=== PATIENT | female | born 1945 | race Caucasian/White ===

== ENCOUNTER → 2018-05-14 | Outpatient (CLI) | payer MEDICARE ==
[~2018-05-14] MED LIST: BUDE10.2 INH; CITA-157 PO; HYDR-2966 PO; NYST100040 PO; OMEP-218 PO; OXYB5TAB86 PO
--- NOTE | 2018-05-14 10:00 | RADIOLOGY IMAGING REPORT ---
[place] [facility] [place] Margarita Smith : 1945 MR: [id number] V: [id number] EXAM DATE: ORDERING PHYSICIAN: ANEL ROSALES TECHNOLOGIST: Location: [facility] - [place] Patient: Margarita Smith : 1945 Visit/Account:[id number] Date of Sevice: 05/14/2018 2 VIEWS CHEST INDICATION: COPD. Productive cough. COMPARISON: 04/30/2016 FINDINGS: There is a dense opacity/consolidation corresponding to the right upper lung. Peripheral aeration is seen within the apical region. There is some volume loss seen within the right hemithorax as a resu lt. At this point, concern is for a right upper lobe pneumonia. Postobstructive pneumonia in the se tting of a central obstructing mass must be considered in the differential given this appearance. Le ft lung is clear and is well aerated. There is no pleural effusion or pneumothorax identified. Hear t size is normal. There is scattered atherosclerosis within the thoracic aorta. Degenerative change s involve the thoracic spine. Prior low thoracic vertebro plasty has been performed. IMPRESSION: 1. Dense opacity/consolidation corresponding to the right upper lobe. Concern is for right upper lob e collapse with a superimposed pneumonia. Possibility of an obstructing central neoplasm accounting for this finding must be considered in the differential. Close radiographic follow-up after treatmen t recommended. Alternatively, computed tomography could be done with IV contrast for further assessm ent in the short term. 2. Scattered atherosclerosis of the thoracic aorta. Report Dictated By: Ariel Schneider at 05/14/2018 9:50 AM Report E-Signed By: Ariel Schneider at 05/14/2018 9:55 AM WSN:[id number]
== END ==
LOC: RAD 09:20
PROVIDERS: ATTEND Family Medicine
DX: I70.0 Atherosclerosis of aorta (principal); R91.8 Other nonspecific abnormal finding of lung field
CPT/HCPCS: 71046

== ENCOUNTER → 2018-05-15 | Outpatient (CLI) | payer MEDICARE ==
[~2018-05-15] MED LIST changes: +IOPAMIDOL 76% 75 ML INFUS BTL 75 ML ONE
--- NOTE | 2018-05-15 17:07 | RADIOLOGY IMAGING REPORT ---
FACILITY: [facility] [place] PATIENT NAME: Margarita Smith : 1945 MR: [id number] V: [id number] EXAM DATE: ORDERING PHYSICIAN: ANEL ROSALES TECHNOLOGIST: Location: [facility] - [place] Patient: Margarita Smith : 1945 Visit/Account:[id number] Date of Sevice: 05/15/2018 CHEST W CONTRAST COMPARISON: PA and lateral chest x-ray May 14, 2018 HISTORY: Cough, shortness of breath, previous smoker with COPD and lung mass on 05/14/2018 chest x-ra y.. TECHNIQUE: Axial CT of the chest with intravenous contrast. Coronal and sagittal reformats. One of the following dose optimization techniques was utilized in the performance of this exam: auto mated exposure control; adjustment of the mA and/or kV according to patient size; or use of iterative reconstruction technique. Specific details can be referenced in the facility's radiology CT exam op erational policy. CONTRAST: 75 mL of IV Isovue-370. CT CHEST FINDINGS: CARDIAC: Unremarkable. MEDIASTINUM/JONATHAN: Unremarkable. No mass or significantly enlarged lymph nodes. VASCULATURE: Moderate atherosclerotic aortic and great vessel origin calcifications. CHEST WALL: 2.1 x 3.5 cm simple lipoma in the right supraspinatus muscle. No axillary adenopathy or solid chest wall mass. LUNGS/PLEURA: Moderate centrilobular emphysema. Large right upper lobe mass measuring about 6.8 x 9. 2 by approximately 8.8 cm (series 2 image 27, coronal image 63). This should be considered pulmonary neoplasm until proven otherwise. There is a large component which abuts the SVC and right paratrachea l fat and the mass is inseparable from the right. Exact measurements are somewhat limited because the margins are obscured by postobstructive right upper lobe atelectasis. There are right upper lobe bro nchi leading into the mass which are abruptly cut off which would make this amenable to bronchoscopic biopsy if desired. Spiculated left upper lobe nodules may represent neoplasm or irregular foci of pneumonia. These inclu de a dominant lesion measuring 1.3 x 2.6 cm series 4 image 117, another more medially measuring 1.5 x 1.7 cm on image 113, and another currently measuring 6 x 9 mm on image 132. BONES: Mild thoracic spine degenerative changes. No lytic or blastic bone lesions. Chronic T11 compr ession fracture with vertebroplasty cement, some of which is paravertebral. LIMITED ABDOMEN: 6 x 9 mm nodule in the medial limb of the left adrenal gland series 2 image 89. Met astasis is not excluded. No well-defined lesions in the visualized liver. Benign cyst in the left kid shaquille incompletely imaged. Cholecystectomy clips and vascular calcifications. OTHER: Negative. IMPRESSION: 1. Approximately 9.2 cm right upper lobe mass which should be considered primary pulmonary neoplasm until proven otherwise. This should be amenable to bronchoscopic biopsy. 2. Spiculated left upper lobe nodules could represent metastases. Irregular foci of bronchopneumonia are possible but unlikely. 3. 9 mm left adrenal gland nodule, metastasis is not excluded. 4. Moderate centrilobular emphysema. 5. Benign intramuscular lipoma, right supraspinatus. Results were called to Dr. ANEL ROSALES on 05/15/2018 5:04 PM. Report Dictated By: Sergei Leary at 05/15/2018 4:41 PM Report E-Signed By: Sergei Leary at 05/15/2018 5:04 PM WSN:[id number]
== END ==
LOC: CT 14:35
PROVIDERS: ATTEND Family Medicine
DX: J43.2 Centrilobular emphysema (principal); R91.8 Other nonspecific abnormal finding of lung field; E27.9 Disorder of adrenal gland, unspecified; D17.9 Benign lipomatous neoplasm, unspecified
CPT/HCPCS: 71260; Q9967

== ENCOUNTER → 2018-06-01 | Outpatient (CLI) | payer MEDICARE ==
[~2018-06-01] MED LIST changes: +BENZ100C4 PO; +DOCU-416 PO; +FLUT1DIS28 IH; +GUAI-242 PO; +GUAI237L21; -IOPAMIDOL 76% 75 ML INFUS BTL 75 ML ONE; +OXYC-854 PO
--- NOTE | 2018-06-01 09:58 | EKG ---
FACILITY: [facility] [place] PATIENT NAME: JOSH CONNOLLY : [id number] MR: [id number] V: [id number] EXAM DATE: ORDERING PHYSICIAN: INEZ CORNELL TECHNOLOGIST: REKHA Perry Reason : RESP EKG Blood Pressure : / mmHG Vent. Rate : 054 BPM Atrial Rate : 054 BPM P-R Int : 140 ms QRS Dur : 078 ms QT Int : 464 ms P-R-T Axes : 059 022 029 degrees QTc Int : 440 ms Sinus bradycardia Otherwise normal ECG No previous ECGs available Confirmed by POONAM PINA ([id number]) on 06/01/2018 8:15:32 PM Referred By: ANETA Confirmed By:POONAM PINA
== END ==
LOC: RESP 09:41
PROVIDERS: ATTEND Surgery
DX: Z01.810 Encounter for preprocedural cardiovascular examination (principal); R00.1 Bradycardia, unspecified
CPT/HCPCS: 93005

== ENCOUNTER → 2018-06-05 | Outpatient (CLI) | payer MEDICARE ==
[~2018-06-05] MED LIST changes: +GADOBENATE 529MG/1ML 15ML VIAL IVP ONE
--- NOTE | 2018-06-05 12:59 | RADIOLOGY IMAGING REPORT ---
FACILITY: [facility] [place] PATIENT NAME: Margarita Smith : 1945 MR: [id number] V: [id number] EXAM DATE: ORDERING PHYSICIAN: MIK HSIEH TECHNOLOGIST: Location: [facility] - [place] Patient: Margarita Smith : 1945 Visit/Account:[id number] Date of Sevice: 06/05/2018 Examination: MR brain without and with contrast History: Lung cancer, staging Comparison: PET/CT May 28, 2018 Technique: Multiplane MR imaging was performed through the brain without and with contrast. 13 cc IV multihance was administered. Findings: Diffusion: None Ventricles: Normal Midline shift: None Extraxial fluid: None Midline craniocervical structures: Normal Parenchyma: Multiple varying sized white matter high signal patches in keeping with moderate chronic small vessel ischemic change. Enhancement: No pathologic enhancement Vascular flow voids: Normal Orbits and paranasal sinuses: Left cataract postsurgical change. Impression: 1. No metastatic disease identified. 2. Moderate chronic small vessel ischemic change. 3. Otherwise normal brain MR without and with contrast. Report Dictated By: Sean Ulrich MD at 06/05/2018 12:52 PM Report E-Signed By: Sean Ulrich MD at 06/05/2018 12:56 PM WSN:[id number]
== END ==
LOC: MRI 10:13
PROVIDERS: ATTEND Internal Medicine Medical Oncology
DX: C34.90 Malignant neoplasm of unspecified part of unspecified bronchus or lung (principal)
CPT/HCPCS: 70553; A9577

== ENCOUNTER 2018-06-07 00:52 | Day surgery (SDC) | payer MEDICARE ==
[~2018-06-07] VITALS: Ht 152.4 cm; Wt 60.3 kg
[~2018-06-07 00:52] MED LIST changes: -DOCU-416 PO; -GADOBENATE 529MG/1ML 15ML VIAL IVP ONE; -OXYC-854 PO
[2018-06-07 06:00] VITALS: BP 140/66
[2018-06-07] MEDS ORDERED: PROPOFOL EMUL(*) 10MG/ML 20 ML 20 ML ONE (06:23)
[2018-06-07] MEDS ORDERED: DEXAMETHASONE SOD 4 MG/ML VIAL ONE (06:23)
[2018-06-07] MEDS ORDERED: fentaNYL CITR 100 MCG/2 ML AMP ONE ×2 (06:23→09:26)
[2018-06-07] MEDS ORDERED: ONDANSETRON 4 MG/2 ML VIAL ONE (06:23)
[2018-06-07] MEDS ORDERED: HEPARIN SOD LCK FLSH 100 UN/ML ONE ×2 (07:12→07:13)
[2018-06-07] MEDS ORDERED: ROPIVACAINE 0.5% 20 ML VIAL ONE (07:13)
[2018-06-07] MEDS ORDERED: NS(*) 0.9% 10 ML VIAL 20 ML ONE (07:13)
[2018-06-07] MEDS ORDERED: ROCURONIUM BROM 10 MG/ML 5 ML ONE (08:00)
[2018-06-07] MEDS ORDERED: OXYC-854 PO (09:01)
[2018-06-07] MEDS ORDERED: DOCU-416 PO (09:01)
--- NOTE | 2018-06-07 09:06 | Short(Outpt) Discharge Summary ---
Discharge Summary Reason for Hosp/Final Diag: (1) Neoplasm of lung, malignant Status: Chronic Hospital Course & Plan: Attempted unsuccessful left IJ and SCV power port placement and successful right power port placed without problems. Departure Discharge to: Home, Self Care Discharge Instructions Home Meds Active Scripts Docusate Sodium (COLACE) 100 Mg Capsule, 1 CAP PO BID, #30 CAP 0 Refills TAKE WITH A FULL GLASS OF WATER Prov:INEZ CORNELL MD 06/07/18 Oxycodone Hcl/Acet 5/325 Mg (ENDOCET 5-325 TABLET) 1 Each Tablet, 1 TAB PO Q4H Y for PAIN, #20 TAB 0 Refills Prov:INEZ CORNELL MD 06/07/18 Reported Medications Guaifenesin/Codeine Phosphate (CHERATUSSIN AC SYRUP) 118 Ml Liquid, 5 ML PO Q6H Y for COUGH 06/05/18 Benzonatate 100 Mg Cap (TESSALON PERLE 100 MG CAP) 100 Mg Capsule, 100 MG PO Q8H Y for COUGH, CAP 06/05/18 Fluticasone/Salmeterol (ADVAIR 250-50 DISKUS) 1 Each Disk.w.dev, 1 EACH IH BID 05/30/18 Citalopram Hydrobromide (CELEXA) 40 Mg Tablet, 40 MG PO QDAY, #5 TAB 09/08/15 Omeprazole Magnesium (PRILOSEC OTC) 20 Mg Tablet.dr, 1 TAB PO BID, TAB 09/08/15 Hydrochlorothiazide (HYDROCHLOROTHIAZIDE) 25 Mg Tablet, 1 TAB PO QDAY, TAB 09/08/15 Oxybutynin Chloride (OXYBUTYNIN CHLORIDE) 5 Mg Tablet, 5 MG PO QDAY, TAB 09/08/15 Discontinued Reported Medications Guaifenesin/Dextromethorphan (Robitussin Cough-Chest Dm Liq) 100 Mg-5 Mg/5 Ml Liquid 05/30/18 Diet: Regular Activity: As Tolerated Special Instructions: You may remove the white surgical dressings on your left neck and chest on 06/09/18, then you can shower. After showering, leave the incisions open to air but leave the steristrips in place on all incisions until they fall off on their own. Do not immerse the incisions for 2 weeks. There is a suture in your right neck that "should" fall out on its own over the next 2 weeks. If it doesn't, you may gently tug on the knot but if it doesn't fall out with gentle tugging then you can either call my office at [phone] and we can remove it in my office or the staff at the cancer center can remove it there during your chemotherapy. Problem Qualifiers (1) Neoplasm of lung, malignant: Laterality: right Lung location: unspecified part of lung Qualified Codes: C34.91 - Malignant neoplasm of unspecified part of right bronchus or lung INEZ CORNELL MD Jun 07, 2018 09:05
--- NOTE | 2018-06-07 09:18 | Post Operative Progress Note ---
Post Operative Progress Note Date: Jun 07, 2018 Time: 09:05 Surgeon: Aristeo Dictation number: [id number] Anesthesia: GETA by Dr. Zhang Pre-Op Diagnosis: Right lung cancer Post-Op Diagnosis: YFN Findings: Unable to draw blood from left IJ, unable to advance wire via left SCV beyond bifurcation of left IJ, wire went up into left IJ. Right IJ adilia blood and threaded wire without problems. Procedure(s): Attempted, unsuccessful, left IJ and left SCV power port placement Successful right IJ power port placement Specimen Removed:(May be N/A): None Complications: None Fluids: See anesthesia record Estimated Blood Loss: Minimal INEZ CORNELL MD Jun 07, 2018 09:18
--- NOTE | 2018-06-07 09:20 | RADIOLOGY IMAGING REPORT ---
[place] [facility] [place]: Margarita Smith : 1945 MR: [id number] V: [id number] EXAM DATE: ORDERING PHYSICIAN: INEZ CORNELL TECHNOLOGIST: Location: [facility] Patient: Margarita Smith : 1945 Visit/Account:[id number] Date of Sevice: 06/07/2018 Exam type: C-ARM FLUORO PORT/CATH History: PORT PLACEMENT Comparison: Two-view chest May 14, 2018. Findings: There is some placement of an implanted right-sided IJ port with the distal tip projecting over the e xpected locations. Vena cava. Large right upper lobe mass is again seen similar to the prior study. The continuous total fluoroscopy dose was 0.51972 mGray per meter square. The fluoroscopy time was 87.4 seconds. IMPRESSION: 1. As above Report Dictated By: Susanna Decker MD at 06/07/2018 9:14 AM Report E-Signed By: Susanna Decker MD at 06/07/2018 9:15 AM WSN:[id number]
--- NOTE | 2018-06-07 09:43 | RADIOLOGY IMAGING REPORT ---
FACILITY: [facility] - [place] PATIENT NAME: Margarita Smith : 1945 MR: [id number] V: [id number] EXAM DATE: ORDERING PHYSICIAN: INEZ CORNELL TECHNOLOGIST: Location: [facility] - [place] Patient: Margarita Smith : 1945 Visit/Account:[id number] Date of Sevice: 06/07/2018 CHEST SINGLE AP Additional pertinent History: Port placement COMPARISON STUDIES: 05/14/2018 FINDINGS: Support lines and catheters: Oxygen tubing EKG wire leads and right chest Geyrgu-w-Uixy. There is go od positioning of the distal tip at the cavoatrial junction Lungs and Pleura: There is a complete right upper lobe parenchymal mass the extending to the posteri or right seventh rib. Additional spiculated 1.5 cm mass in the left midlung field. Atelectasis at t he left lung base. Heart and vasculature: Negative. Cristiana and Mediastinum: Negative. Bones and Chest wall: Negative. Upper Abdomen: Negative. IMPRESSION: 1. No interval placement of a right chest Xmelpn-w-Qhck catheter. Reidentified is a right apical ma ss and the left mid lung parenchymal lesion. Report Dictated By: Joe Saunders MD at 06/07/2018 9:32 AM Report E-Signed By: Joe Saunders MD at 06/07/2018 9:39 AM WSN:[id number]
[2018-06-07 09:47] VITALS: BP 111/81
--- NOTE | 2018-06-07 10:07 | OPERATIVE REPORT 1 ---
EVENT DATE: June 07, 2018 SURGEON: Derek Alberts M.D. ANESTHESIOLOGIST: Jose Alfredo Zhang M.D. ANESTHESIA: General endotracheal. PREOPERATIVE DIAGNOSIS Right upper lobe lung cancer. POSTOPERATIVE DIAGNOSIS Right upper lobe lung cancer. PROCEDURE PERFORMED 1. Attempted but unsuccessful left internal jugular (IJ) and left subclavian PowerPort placement. 2. Successful right internal jugular (IJ) PowerPort placement. COMPLICATIONS None. CONDITION Stable. ESTIMATED BLOOD LOSS Minimal. FINDINGS I was unable to draw blood from the left IJ even though I could clearly see the needle in the IJ based on ultrasound. I was able to thread the wire without any seeming resistance but then when I placed the port I could not draw any blood through the port either. I pulled that port out and then went into the left subclavian vein and was able to get a good brisk venous blood return but then I could not thread the wire into the superior vena cava; it wanted to go up into the IJ so I aborted on the left and then was successful in placing one on the right. I could draw blood with no problems and thread the wire without any problems on the right IJ. INDICATIONS This is a 72-year-old female who was referred to me by the Cancer Center with a new diagnosis of right upper lobe lung cancer and they are requesting a port placement to facilitate chemotherapy. DESCRIPTION OF PROCEDURE The patient was brought to the operating room and placed supine on the operating table. General endotracheal anesthesia was administered and her left shoulder, neck and chest were prepped and draped in sterile fashion. Time-out was completed. With her in Trendelenburg, I used the ultrasound, identified the left internal jugular vein and it appeared widely patent but there appeared to be echogenic substance inside the vein. It was compressible. I was able to direct the needle into the vein and could follow this on the ultrasound but could not get any blood to flash back into the syringe. Because it looked like a good position in the vein, I tried to threat the wire and it seemed to thread without any problems and I confirmed position with the C-arm fluoroscope into the SVC and so then went ahead and placed the port on the left side but then after getting the port in what looked to be a good position I was then able to get any blood return at all through the port and catheter. I then just removed the port and catheter from the this side and then attempted a left subclavian vein placement and was able to get good flashback of venous blood on the left side but then I could not get the wire to threat into the SVC; it wanted to go up into the left IJ. I attempted all attempts on the left side and when ahead and closed the incision in the left infraclavicular skin with interrupted 3-0 Vicryl deep dermal sutures and 4-0 Monocryl running subcuticular sutures. Her skin was clean, dried and steri-strips applied followed by sterile surgical dressings. We took all the drapes down and then prepped the right shoulder, chest and neck and I re-gowned and gloved and with Trendelenburg identified the right internal jugular vein and accessed this in one attempt with no problems and good blood return. I threaded the wire with no problems, used C-arm fluoroscope to position it in the SVC and it went very nicely. I made an incision in the right infraclavicular skin and dissected through the dermis subcutaneous fat and created a pocket in this area and made sure it was hemostatic. I then dragged the catheter with the tunneler back up into the neck into the stab incision and then threaded the dilator and sheath over the wire, removed the wire and dilator and threaded the catheter through the sheath and removed the sheath. I then used the C-arm fluoroscope to position the tip of the catheter and the SVC just above the right atrium. I cut it to length, placed a port on the catheter and locked into place with locking cup, sewed it to the underlying fascia with 3-0 Nylon at the corners and then aspirated blood with no problems and flushed it with 10 mL of normal saline and then 5 mL of 100 units/mL of heparinized saline. It flushed with no problems. I then took some more C-arm images to confirm good placement and then closed the infraclavicular incision with interrupted 3-0 Vicryl deep dermal sutures and 4- 0 Monocryl running subcuticular sutures. I placed a single 3-0 chromic in the stab incision in the neck. I cleaned and dried the skin and placed steri- strips over the incisions. She was then awakened and extubated in the operating room and transported to the recovery room in stable condition. She tolerated the procedure without any apparent problems. A chest x-ray in the recovery room was reviewed with the radiologist and the port and catheter were in good position. There was no evidence of pneumothorax or other complications. [place]
[2018-06-07 10:18] VITALS: BP 114/53
[2018-06-07 10:19] VITALS: BP 112/54
[2018-06-07] MEDS ORDERED: MIDAZOLAM 2 MG/2 ML VIAL IVP PRN (13:00)
[2018-06-07] MEDS ORDERED: NORMOSOL R SOLN(*) 1000 ML BAG 1,000 ML IV PRN (13:00)
[2018-06-07] MEDS ORDERED: LIDOCAINE/SOD BICARB 8.4% SYR ID ONE (13:00)
[2018-06-07] MEDS ORDERED: VANCOMYCIN 1 GM ADDVIAL 1 GM in NS(*) 0.9% 250 ML ADDVAN BAG 250 ML IVPB ONE (13:00)
== END 2018-06-07 19:48 | disposition home or self-care (01) ==
LOC: OR 00:52
PROVIDERS: ATTEND Surgery
DX: C34.11 Malignant neoplasm of upper lobe, right bronchus or lung (principal)
CPT/HCPCS: 36561; 71045; 77001; A9270; J1100; J1642; J2405; J2704; J2795; J3010; J3370; J7050

== ENCOUNTER 2018-07-27 11:15 | Outpatient (RCR) | payer MEDICARE ==
--- NOTE | 2018-06-14 14:27 | PT INITIAL EVALUATION ---
MEDICAL DIAGNOSIS: Non-Squamous Cell Lung Cancer (NSCLC) TREATMENT DIAGNOSIS: Non-Squamous Cell Lung Cancer (NSCLC) DATE OF ONSET: 06/14/18 SUBJECTIVE: Margarita Dolan" is a 72 year old female presenting for oncology rehabilitation education following recent diagnosis of non-squamous cell lung cancer (NSCLC). Pt is to start chemotherapy intervention consisting of Carboplatin every 21 days. Pt currently lives with her daughter and is on 3 L of oxygen throughout the day. Pt has a history of smoking with COPD. Pt currently reports no physical impairments and is fairly active doing chores throughout the day. REHAB PROBLEM LIST: Decreased Endurance Decreased Function Decreased ADL's Decreased Mobility PREVIOUS MEDICAL HISTORY: See EMR OBJECTIVE: Posture: Posture significant for rounded shoulders, increased thoracic kyphosis with forward head. ROM: Shoulder ROM: Flexion/Abd: B with minimal restrictions but no pain at end range, ER: full B, IR: L T7, R T8 Strength: Shoulder MMT: All 5/5 excluding R ER at 4+/5. Sensation: Pt reports no neuropathy at this time or change in sensation. Mobility: ECOG performance Status: grade 2, mobility was recently decreased secondary to fatigue Other Objective Findings: Functional Assessment of Cancer Therapy: General (FACT -G): PWB: , SWB: , EWB: , FWB: , total: 97/108 ASSESSMENT: Rosa Elena shows good functional mobility at this time with diagnosis of NSCLC with mild deficits in daily function secondary to fatigue. Physical therapy is indicated to maintain function with ADL's as well as improve the above listed deficits for functional mobility with ongoing oncological intervention. Short Term Goals In 3 MO pt will maintain FACT-G score of 85 or greater for maintenance of function with ADL's with ongoing oncological intervention. In 3 MO pt will maintain shoulder ROM with minimal restrictions and no pain for improved function with ADL's. In 6 MO pt will maintain FACT-G score of 80 or greater for maintenance of function with ADL's with ongoing oncological intervention. Patient's Goals Maintain function with ADL's with ongoing treatment for NSCLC PLAN: Patient to be seen for Manual Therapy/STM/MET Strengthening/condition Ice/Heat Range of Motion Spinal Stabilization Stretching Neuromuscular Re-ed Closed Chain Program Electrical Stim Posture/Body mechanics Gait Trg/Balance Trg Home Exercise Program Mech./Manual Traction Therapeutic Activities Pelvic Floor 1x/MO for 6 MO If you have any questions, comments, or concerns about this report or plan, please contact me at . Thank you, Nancy Raymond, PT, DPT, CLT DUTCH
[~2018-07-27 11:15] MED LIST changes: +DOCU-416 PO; +OXYC-854 PO; +POTA20PA25 PO; +TRIA15CR40 TP
--- NOTE | 2018-07-27 15:45 | PT PLAN OF CARE ---
Physician: Sylvie Beasley MD Patient is being seen: 1x/3Weeks Therapist: Nancy Raymond, PT, DPT, CLT Medical Diagnosis: Non-Squamous Cell Lung Cancer (NSCLC) Treatment Diagnosis: Non-Squamous Cell Lung Cancer (NSCLC) Date of Onset: 06/14/18 Date of Initial Evaluation: 06/14/18 Date patient was last seen: 07/27/18 Number of treatments: 2 Number of cancellations/No shows: 0 INTERVENTIONS: Manual Therapy/STM/MET Strengthening/condition Ice/Heat Range of Motion Spinal Stabilization Stretching Neuromuscular Re-ed Closed Chain Program Electrical Stim Posture/Body mechanics Gait Trg/Balance Trg Home Exercise Program Mech./Manual Traction Therapeutic Activities Pelvic Floor GOALS: In 3 MO pt will maintain FACT-G score of 85 or greater for maintenance of function with ADL's with ongoing oncological intervention. In 3 MO pt will maintain shoulder ROM with minimal restrictions and no pain for improved function with ADL's. In 6 MO pt will maintain FACT-G score of 80 or greater for maintenance of function with ADL's with ongoing oncological intervention. PATIENT'S GOAL: Maintain function with ADL's with ongoing treatment for NSCLC Status of Patient's Goals: In Progress Patient Compliance: Good Prognosis: Fair Reasons for continuing therapy: Rosa Elena shows good progress with maintenance of physical condition with ongoing treatment. Secondary to postural changes pt has developed R shoulder impingement with both subscapularis, and supraspinatus rotator cuff muscles affected. Pt started on strengthening exercises as well as postural correction exercises that will likely assist with increasing lung capacity as well. Further PT to continue to evaluate shoulder function and progress exercises as well as maintain function with ADL's. OBJECTIVE: Posture: Posture significant for rounded shoulders, increased thoracic kyphosis with forward head. ROM: Shoulder ROM: Flexion/Abd: B with minimal restrictions but no pain at end range, ER: full B, IR: L T7, R T8 Strength: Shoulder MMT: All 5/5 excluding R ER at 4/5 with pain, R IR 4/5 with pain. Sensation: Pt reports no neuropathy at this time or change in sensation. Mobility: ECOG performance Status: grade 2, mobility was recently decreased secondary to fatigue Other Objective Findings: Functional Assessment of Cancer Therapy: General (FACT-G): PWB: , SWB: , EWB: , FWB: , total: 97/108 If you have any questions, comments, or concerns about this report or plan, please contact me at . Thank you, Nanyc Raymond, PT, DPT, CLT MTDD
== END 2018-07-27 18:00 | disposition home or self-care (01) ==
LOC: PT 11:15
PROVIDERS: ATTEND Internal Medicine Hematology
DX: C34.90 Malignant neoplasm of unspecified part of unspecified bronchus or lung (principal); Z99.81 Dependence on supplemental oxygen; Z87.891 Personal history of nicotine dependence
CPT/HCPCS: 97161

== ENCOUNTER 2018-08-24 12:43 | Outpatient (RCR) | payer MEDICARE ==
[2018-05-30 14:48] VITALS: BP 142/75
--- NOTE | 2018-05-31 04:18 | ONCOLOGY CONSULTATION ---
EVENT DATE: May 30, 2018 REFERRING PROVIDER Julian Mercedes MD, local area network systems adminstrator, [facility] REASON FOR CONSULTATION Newly diagnosed lung cancer. CHIEF COMPLAINT Cough, shortness of breath. HISTORY OF PRESENT ILLNESS Ms. Smith is a delightful 72-year-old female who presents today at the request of Dr. Mercedes for evaluation and treatment plan for recently diagnosed lung cancer. To review, the patient does have a history of moderate COPD and chronic hypoxemia requiring supplemental oxygen. She had been in her usual state of health over the past year until recently when she had developed a cough that was increasing in severity. She underwent a CT scan of the chest that showed a right upper lobe mass. She subsequently underwent bronchoscopy and EBUS on May 18. Pathology from the bronchoscopy has revealed a poorly differentiated non-small cell carcinoma within a subcarinal lymph node and right paratracheal lymph node, as well as endobronchial biopsy of the right upper lobe mass. She subsequently went for a CT PET scan. This was performed on May 28. This has revealed a dense hypermetabolic right upper lobe pulmonary mass confluent with the superior right hilum and extending toward the subcarinal space, but without discrete/separate adenopathy. There were several irregular left upper lobe pulmonary nodules, the largest hypermetabolic, but all three consistent with metastatic disease. There was a non-hypermetabolic left adrenal nodule, most likely adenoma. The patient has not yet undergone brain imaging to complete her staging. She is here with family today. The patient reports that in general, she still continues to feel like she is basically at her baseline despite having a worsened cough. She reports no significant pain. Her appetite is pretty good, and her weight has been stable. She does feel short of breath with exertion, but she is independent for basically all activities of daily living. She reports no hemoptysis. She has had no abdominal pain or recent changes in bowel or bladder habits. She denies skin rash. She has had no severe headache or focal neurologic symptoms. REVIEW OF SYSTEMS Review of systems is otherwise negative, and all symptoms were reviewed. PAST MEDICAL HISTORY 1. COPD. 2. History of smoking, patient quit in 2011. 3. Gastroesophageal reflux disease. 4. Macular degeneration. CURRENT MEDICATIONS 1. Citalopram. 2. Oxybutynin. 3. Hydrochlorothiazide. 4. Omeprazole. ALLERGIES PENICILLIN. SOCIAL HISTORY The patient is currently a nonsmoker, but does have a history of heavy smoking. She quit in 2011. There is no history of alcohol abuse or illicit drug use. FAMILY HISTORY There is a history of heart disease and hypertension as well as Alzheimer's disease. There are no known cancers in the family. PHYSICAL EXAMINATION VITAL SIGNS: Temperature 97.6, blood pressure 142/75, heart rate is 68, respirations 16, oxygen saturation is 95% on 3L. Weight is 61.3 kg. GENERAL: Patient is alert and oriented x three in no apparent distress, sitting in the exam room chair. She is interactive and very pleasant. HEENT: Anicteric sclerae. NEUROLOGIC: Grossly nonfocal and her gait is normal. EXTREMITIES: Some slight edema of the bilateral lower extremities, but no cyanosis. SKIN: No concerning rash or lesion. There is no erythema or tenderness. LABORATORY DATA Laboratory studies are reviewed per the [facility] record. IMAGING Please see history of present illness. PATHOLOGY Please see history of present illness. ASSESSMENT AND PLAN Stage IV poorly differentiated lung carcinoma. I had a lengthy and in-depth visit with Ms. Smith and her family today. We were accompanied by Cheryl Alejandro , nurse practitioner. We spent time today discussing her past medical history as well as her prior follow up for COPD and increasing cough that led to her recent workup. We reviewed her imaging studies as well as pathology from her bronchoscopy. She does appear to have a substantial mass in the right lung, but does appear to have lung collapse that could be contributing to the hypermetabolism noted on her CT PET scan. That said, she does have documented mediastinal lymphadenopathy, at least N2 disease, and her CT PET is also revealing of contralateral pulmonary nodules that are very concerning for metastatic deposits. We discussed high-grade lung cancer, staging as it relates to prognosis and treatment decision making, as well as outlook and expectations. All things considered, given her comorbidities, especially her underlying COPD, the patient's performance status is remarkably good. We discussed that molecular profiling studies will be sent. These will include PDL1, amongst other studies. We discussed the different modalities of treatment that can be offered to patients with advanced lung cancer. Systemic therapy will be the cornerstone of her treatment, should she choose to receive it. We discussed chemotherapy in general terms, as well as immunotherapy. We discussed the merits of beginning treatment as soon as possible, as opposed to waiting for her additional diagnostic studies to return. At this point, because her performance status is good enough to consider doublet chemotherapy, I do think it would be membreno to start, given the unlikely nature of finding an actionable mutation. We discussed the merits of adding checkpoint inhibitor therapy with pembrolizumab to doublet chemotherapy, and the potential for immune -related toxicity. With further extensive discussion today, we had made the decision for the patient to move forward with palliative carboplatin, pemetrexed and pembrolizumab. She will need to undergo port placement, as well as chemotherapy education. She does not have focal neurologic symptoms, but given the extent of the disease in her chest, I do think that brain MRI is necessary. This will be ordered as well. The patient is not currently smoking. The patient and her family had several further insightful and appropriate questions for me today, and I believe I answered all of their questions to their satisfaction. We will try to get started on her palliative therapy as soon as possible, and I will plan to see her back during my next visit to my [place] clinic. I spent a total of one hour of time face to face with the patient today, and 55 minutes of this was spent in direct counseling and coordination of care. DUTCH
--- NOTE | 2018-06-12 16:34 | Pharmacy Note ---
Pharmacy Note Note: Clinical Pharmacist Note: Chemotherapy Education Visit Date: 06/12/18 Chemotherapy Regimen: Pembrolizumab/Pemetrexed/Carboplatin Q21D x 4 cycles The regimen includes pembrolizumab, pemetrexed, carboplatin given every three weeks for 4 cycles The schedule of treatment administration was explained in detail to the patient in regards to lab visits, timing and sequence of premedications and chemotherapy , followed by any supportive medications to be given. Discussed the purpose of the port and why we administer chemotherapy through a port. Port placed prior to chemo ed appointment. Patient's diagnosis, treatment plan, and intent of treatment along with goals are outlined on the signed consent form, that was reviewed and signed at the end of this appointment. The goal is control of disease/palliation of symptoms. The potential for drug/drug interaction and drug/food interactions were explained to the patient. Patient was instructed to report any new medications to the office. A medication reconciliation was reviewed by the pharmacist today. We reviewed and discussed toxicities of supportive care medications and how to appropriately use supportive medications including the schedule of anti- emetics. These medications include the following: Take home medications: dexamethasone, ondansetron, prochlorperazine, B12, Folic Acid Pre-medications: palonosetron Supportive Medications: none at this time We have also discussed the potential for long and short term side effects of chemotherapy including, but not limited to the side effects outlined below: -Low WBCs or neutropenia: Patient may experience bone marrow toxicity that would increase their risk for infection. Patient is aware to look for signs and symptoms of infection (e.g. fever of higher than 100.4F, chills, sore throat , etc.) and knows what number to call and when to contact the clinic. Advised patient of things they can do such as wash hands with soap and water often, avoid people who are sick, and avoid crowds during times of low blood counts ( typically 7-10 days post chemotherapy). - Low RBCs or anemia: Anemia is when you don't have enough red blood cells to carry oxygen through your body, which causes fatigue, weakness, lightheadedness , pale skin, SOB, or headaches. Discussed the importance of getting enough restful sleep at night and eating a diet rich in iron. Lab values will be closely monitored to check your RBCs. Advised patient to contact the clinic if they have a fast heart rate, dizziness, or lightheadedness. -Low platelet counts or thrombocytopenia: Patient may experience low platelets which can lead to increased risk of bleeding, easy bruising, black or bloody stools, or small red or purple spots on the skin. Platelets help blood to clot and if your platelets are low enough, bleeding may not stop after a few minutes. Excessive bleeding or bruising, red spots on your skin or new onset headaches require a phone call to the clinic. - Fatigue (feeling tired): Some patients may experience fatigue, or feel tired , weak, low energy, drained or exhausted. You will experience fatigue after chemotherapy, but the amounts for each person and chemotherapy will differ. Advised patient to stay active as much as they can with light exercise, take short naps if needed, get a restful night of sleep, and eat a well-balanced diet. Call the clinic if you are unable to get out of bed or do typical daily activities, have shortness of breath, or have trouble walking small distances. -Nausea or vomiting: Most patients may experience some level of nausea ( feeling queasy or sick to your stomach) or vomiting. Advised patient to take their anti-nausea medications as prescribed, drink plenty of fluids, eat several small meals throughout the day, eat bland easy to digest foods, and speak to our parking meter collector if they have questions. Call the clinic if the nausea or vomiting is not eased by your medications and lasts 12 hours or longer, or if unable to eat or drink, or keep medicines down. - Appetite changes (eating less or more): You may experience a decrease or increase in your appetite that might last a day, weeks or months. Advised patient to set a schedule for eating and drink high protein drinks to maintain calories. Ask your doctor or nurse for a parking meter collector consult to help manage your appetite changes or if you have concerns about your appetite changes. Contact the clinic if you notice a change in weight and if you are unable to take in more than a few bites of food or sips of liquid at mealtimes. Favorite foods may also taste different or may not be pleasing. -Hair loss or alopecia: Hair loss typically begins 2-3 weeks after the first chemotherapy treatment and can range from thinning to full body hair loss, and can occur anywhere on your body. Your hair may come out a little at a time or in clumps and your scalp may feel tender before the hair falls out. In the meantime, you can cut your hair or choose a wig- protect your head and wear sunscreen and mild shampoo and brushes. The hair will usually grow back about 2 -3 months after you finish chemotherapy and may be a different texture or color when it returns. -Mouth sores and oral care (mucositis or stomatitis): Patient was informed that they may experience taste changes, dry mouth, and potential mouth sores due to the chemotherapy. The best way to prevent and treat mouth sores is to do routine mouth care each day. If mouth sores occur, use mouth rinses with baking soada, alst and warm water after meals and before bed (dissolve 2 TBSP of baking soda and 1/2 tsp of salt in 8 oz of warm water--swish and spit). Avoid mouthwashes with alcohol and spicy food if mouth sores exist. If dry mouth occurs, sucking on ice chips or sugar free hard candy can help. -Neuropathy (numbness-pins and needles-tingling): Patient may experience acute and chronic neuropathy that can potentially be irreversible due to the chemotherapy. The patient is advised to report symptoms to the clinic if they experience burning, tingling, and numbness in the hands, feet, face or mouth. -Sexual and Reproductive Health: There is an increased risk of chemotherapy exposure to your partner when you are on chemo. When sexually active, wear a protective barrier while on chemotherapy. -Hepatotoxicity: There is a risk of toxicity to your liver. Your lab work will be watched closely to determine if this is occurring and any required dose adjustments will be made at that time. -Skin Problems: Some patients may experience a variety of symptoms including: rash, dry/cracked skin, red/inflammed skin, brittle/cracked/yellow nails, red/ blistering skin near the areas of radiation, sunburn easily, and itching. Severe exfoliating rashes are possible. Pt to report any signs or symptoms of blisters or rash. Advised patient that they can moisturize their skin daily, use sunscreen, use mild soaps when washing the skin and to avoid products with perfumes, dyes, or alcohol. Regarding fingernails specifically, patient is advised to keep their nails short and trimmed. -Immune mediated toxicities: Dermatologic, Hyperglycemia (DM-with possible DKA) , Colitis, Hepatotoxicity, Hypersensitivity reactions, Hypophysitis, nephrotoxicity, pulmonary toxicity, thyroid disorders, and other immune toxicities -Other Toxicities: Electrolyte changes, nephrotoxicity, and pulmonary toxicity : Patient will be monitored closely for toxicities listed. Lab work will be reviewed weekly and the patient will be notified with these changes and if there are changes, may need additional follow up and testing. Patient was given the Standard Chemotherapy Education Binder with appropriate phone numbers and we reviewed symptoms that would prompt a call to the clinic. Upcoming appointments were discussed and patient knows to follow up at the lead front end developer to get print outs of their schedule and the processes to change/ cancel an appointment. Consent was reviewed with the patient and signed in my presence. The treating physician will review and sign the consent. Allergies were reviewed: Penicillin At the end of this discussion, the patient and her daughter verbalized understanding of the provided education and information and all of their questions were answered to their satisfaction. Patient and her daughter know how to reach me if further questions or concerns come up. Time spent with the patient: 90 minutes, with all 90 minutes being spent counseling on the detailed information above. Isela Lamb, PharmD, BCOP ISELA LAMB Jun 12, 2018 16:17
[2018-06-14 09:57] VITALS: BP 130/66
[2018-06-14] MEDS: PALONOSETRON 0.25 MG/5 ML VIAL IVP PRN (11:09)
[2018-06-14] MEDS: LIDOCAINE/SOD BICARB 8.4% SYR ID PRN (11:09)
[2018-06-14] MEDS: HEPARIN FLSH (PORT) 500 UN/5ML IVP PRN (11:09)
[2018-06-14] MEDS: NS(*) 0.9% 500 ML BAG 500 ML IV PRN (11:09)
[2018-06-14] MEDS: PEMBROLIZUMAB 100 MG/4 ML SDV 200 MG in NS(*) 0.9% 50 ML BAG 50 ML IV PRN (11:46)
[2018-06-14] MEDS: NS 0.9% IVPB PRN (12:45)
[2018-06-14] MEDS: PEMETREXED DISOD IVPB PRN (12:45)
[2018-06-20 16:26] VITALS: BP 126/71
--- NOTE | 2018-06-21 07:39 | ONCOLOGY FOLLOW UP NOTE ---
EVENT DATE: June 20, 2018 REASON FOR FOLLOWUP Stage IV poorly differentiated lung carcinoma. INTERIM HISTORY Margarita returns to the clinic for a followup visit today. She is accompanied by her daughter. She has initiated palliative systemic therapy with carboplatin, pemetrexed and pembrolizumab. She reports that things have been basically as anticipated after undergoing chemotherapy education. She does report expected fatigue, which has been a bit worse. She also reports some "gallbladder attacks" that had been happening prior to her chemo. These may be getting a little bit more frequent. She reports no fever. Her appetite has otherwise been good. She believes her weight has been stable. She is trying to work through the fatigue and get activity as tolerated. She reports no new pain but she has had some ongoing pain in the back as well as posterior pelvis. She denies diarrhea but occasionally she will be constipated. This has been easily managed at home with diet. She reports no new urinary symptoms. Her biggest complaint today aside from fatigue is that she has developed a diffuse rash over her chest, which has been itchy. Her scalp has also been itchy. REVIEW OF SYSTEMS Review of systems is otherwise negative and all systems reviewed. PAST MEDICAL HISTORY 1. COPD. 2. History of smoking, patient quit in 2011. 3. Gastroesophageal reflux disease. 4. Macular degeneration. CURRENT MEDICATIONS 1. Citalopram. 2. Oxybutynin. 3. Hydrochlorothiazide. 4. Omeprazole. 5. Docusate p.r.n.. 6. Indocet p.r.n. 7. Guaifenesin p.r.n. 8. Tessalon Perles p.r.n. 9. Advair. ALLERGIES PENICILLIN. SOCIAL HISTORY The patient is currently a nonsmoker, but does have a history of heavy smoking. She quit in 2011. There is no history of alcohol abuse or illicit drug use. FAMILY HISTORY There is a history of heart disease and hypertension as well as Alzheimer's disease. There are no known cancers in the family. PHYSICAL EXAMINATION VITAL SIGNS: Temperature 97.6, blood pressure 126/71, heart rate is 64, respirations 16, oxygen saturation is 94% on 3L. Weight is 60.6 kg. GENERAL: Patient is alert and oriented x3 in no apparent distress, sitting in the exam room chair. She is in good spirits and quite interactive. She is wearing supplemental oxygen. HEENT: Anicteric sclerae. NEUROLOGIC: Grossly nonfocal, although her gait is somewhat slow and antalgic. SKIN: Diffuse maculopapular rash over the chest that is somewhat covered by Calamine lotion. Scalp reveals no particular findings. LUNG: Decreased breath sounds on the right. HEART: Regular rate and rhythm.. LABORATORY DATA Laboratory studies are reviewed per the [facility] record. IMAGING None today. ASSESSMENT AND PLAN Stage IV high-grade lung carcinoma. Ms. Smith has initiated palliative chemotherapy with carboplatin, pemetrexed and pembrolizumab. She seems to be tolerating palliative therapy fairly well but it is early in her treatment course. She is having expected toxicity. She seems to be doing all the right things at home in terms of mitigating side effects. She has developed a rash that is very likely due to immunotherapy. Cheryl Alejandro, nurse practitioner, will be working with the patient to get a topical steroid prescribed. As discussed, I would want to move forward with molecular profiling studies on her biopsy, although I am not anticipating finding an actionable mutation. The plan for her moving forward will be to continue with her current regimen every three weeks and I will plan to see her when I return to [place] for followup. I do think it would be membreno for her to follow up in one week here with Cheryl Alejandro to reevaluate this rash and for a general toxicity check. The patient agrees with this plan. MTDD
[2018-06-21 12:59] LABS: PLATELET COUNT, AUTOMATED 223 K/uL (150-450)
[2018-06-21 14:57] VITALS: BP 126/71
[2018-06-21] MEDS: LIDOCAINE/SOD BICARB 8.4% SYR ID PRN (15:30)
--- NOTE | 2018-06-21 16:32 | Oncology Progress Note ---
History of Present Illness Evaluation Evaluation Date: Jun 21, 2018 Evaluation Time: 12:50 Accompanied by Accompanied by: Daughter Chief Complaint Chief Complaint Hypokalemia, K+2.8 Oncology History Oncology History 05/30/18 Ms. Smith is a delightful 72-year-old female who presents today at the request of Dr. Mercedes for evaluation and treatment plan for recently diagnosed lung cancer. - To review, the patient does have a history of moderate COPD and chronic hypoxemia requiring supplemental oxygen. She had been in her usual state of health over the past year until recently when she had developed a cough that was increasing in severity. She underwent a CT scan of the chest that showed a right upper lobe mass. She subsequently underwent bronchoscopy and EBUS on May 18. Pathology from the bronchoscopy has revealed a poorly differentiated non- small cell carcinoma within a subcarinal lymph node and right paratracheal lymph node, as well as endobronchial biopsy of the right upper lobe mass. She subsequently went for a CT PET scan. This was performed on May 28. This has revealed a dense hypermetabolic right upper lobe pulmonary mass confluent with the superior right hilum and extending toward the subcarinal space, but without discrete/separate adenopathy. There were several irregular left upper lobe pul monary nodules, the largest hypermetabolic, but all three consistent with metastatic disease. There was a non-hypermetabolic left adrenal nodule, most likely adenoma. The patient has not yet undergone brain imaging to complete her staging. She is here with family today. Treatment Treatment Pembrolizumab/Premetrexed/CArboplatin Q21 days. -06/14/2018 C1/D1 Pembrolizumab (200mg)/Premetrexed(785mg)/CArboplatin (472mg) HPI HPI Margarita Castañeda is a delightful 72-year-old female who has Stage IV poor ly differentiated lung carcinoma Dx: 04/2018 revealed by EBUS and CT PET scan on April, . s/p C1/D1Pem/Pem/Carbo on 06/14/2018. Patient was called back to cancer center today after a critical value of K+ of 2.8. patient is AAOX4 , and hemodynamically stable. Besides occasional palpitations, and skin itchiness and rashes to arms and scalp ( on topical vanicream/triamcinolone), she reports no major changes from health status baseline. She denies no cardiac type chest pain, no SOB, no reported toxicities thus far. Significant PMHx of COPD ( O2 [id number] nasal canula.); GERD. Living Conditions Lives with daughter, strong support system. Diagnostic Studies Result Diagram: 06/21/18 1254 06/21/18 1254 Social/Occupational History Social History: Social History This is a 72 Yr old White female, she is M and has [] Children Hx Smoking: Yes (1 PPD FOR 47 YRS) Allergies & Medications Allergies: Coded Allergies: Penicillins (Verified Allergy, Intermediate, 04/30/16) Home Meds Active Scripts Docusate Sodium (COLACE) 100 Mg Capsule, 1 CAP PO BID, #30 CAP 0 Refills TAKE WITH A FULL GLASS OF WATER Prov:INEZ CORNELL MD 06/07/18 Oxycodone Hcl/Acet 5/325 Mg (ENDOCET 5-325 TABLET) 1 Each Tablet, 1 TAB PO Q4H PRN for PAIN, #20 TAB 0 Refills Prov:INEZ CORNELL MD 06/07/18 Reported Medications Triamcinolone Acetonide 0.1% Cr 15 Gm Tube (TRIAMCINOLONE ACETONIDE 0.1% CREAM) 15 Gm Cream..g., 15 GM TP PRN for ITCHING, TUBE 06/21/18 Guaifenesin/Codeine Phosphate (CHERATUSSIN AC SYRUP) 118 Ml Liquid, 5 ML PO Q6H PRN for COUGH 06/05/18 Benzonatate 100 Mg Cap (TESSALON PERLE 100 MG CAP) 100 Mg Capsule, 100 MG PO Q8H PRN for COUGH, CAP 06/05/18 Fluticasone/Salmeterol (ADVAIR 250-50 DISKUS) 1 Each Disk.w.dev, 1 EACH IH BID 05/30/18 Citalopram Hydrobromide (CELEXA) 40 Mg Tablet, 40 MG PO QDAY, #5 TAB 09/08/15 Omeprazole Magnesium (PRILOSEC OTC) 20 Mg Tablet.dr, 1 TAB PO BID, TAB 15 Hydrochlorothiazide (HYDROCHLOROTHIAZIDE) 25 Mg Tablet, 1 TAB PO QDAY, TAB 15 Oxybutynin Chloride (OXYBUTYNIN CHLORIDE) 5 Mg Tablet, 5 MG PO QDAY, TAB 09/08/15 Review of Systems Constitution: Denies Appetite/Weight Change, Denies Fever/Chills/Sweating, Denies Recent Infection, Denies Other HEENT: No EARS: Tinnitus, No NOSE: Nasal Discharge, No THROAT: Sore Throat, No EYES: Dipolpia, No EARS: Hearing Problems, No NOSE: Epistaxis, No THROAT: Mouth Ulcers, No EYES: Vision Change, No OTHER Respiratory: Shortness of Breath (on Exertion, O2 dependent) Cardiovascular: No Chest Pain, No Orthopnea, No Edema; Palpitations (Occasio michelle); No OTHER Gastrointestinal: No Nausea, No Vomitting, No Diarrehea, No Constipation, No Heart Burn, No Swallowing Difficulties, No Abdominal Pain, No Other Gentiourinary: No Hematuria, No Dysuria, No Nocturia, No Other Musculoskeletal: Joint Pain Hematological: Fatigue Skin: Skin Rash; No Lumps, No Erythema, No Dry Skin, No Moist Skin, No Other Psychiatric: No Anxiety, No Depression, No Other Vital Signs Vital Signs Temperature: 97.6 Pulse: 69 BP Systolic: 123 BP Diastolic: 71 Respiratory Rate: 16 O2 SAT: 94 O2 Delivery: 3L Height (feet) Height (inches) 59.44 Weight lb: 133 Weight oz: Weight Kg (Onel): Pain: 0 ECOG-2 Physical Exam General: Looks Stable, Other (In no acute dostress) HEENT: HEAD:Atraumatic; No EYES: Conjuctivitis, No EYES: Icterus, No MOUTH: Mucocitis, No MOUTH: Oral Thrush, No SINUS: Tenderness to Palpation, No Other Neck: Supple; No Cervical Lymphadenopathy, No Subclavicular Lymphadopathy, No Thyromegaly, No Other Lungs: Other (Dimisnhed) Heart: Regular Rate and Rhythm Abdomen: Soft and Nontender Extremities: No Cyanosis, No Clubbing, No Edema, No Other Lymphatics: No Peripheral Lymphadenopathy, No Other Psychiatric: No Mood appears normal, No Affect appears normal, No Other Skin: Skin Rashes Breast: No No Masses, No No Nipple Discharge, No No Skin Changes, No Other Assessment and Plan Assessment and Plan Margarita Castañeda is a delightful 72-year-old female who has Stage IV poorly differentiated lung carcinoma Dx: 04/2018 revealed by EBUS and CT PET scan on April, . s/p C1/D1Pem/Pem/Carbo on 06/14/2018. Patient was called back to cancer center today after a critical value of K+ of 2.8. patient is AAOX4 , and hemodynamically stable. Besides occasional palpitations, and skin itchiness and rashes to arms and scalp ( on topical vanicream/triamcinolone), she reports no major changes from health status baseline. She denies no cardiac type chest pain, no SOB, no reported toxicities thus far. Significant PMHx of COPD ( O2 [id number] nasal canula.); GERD. DIAGNOSTIC DATA WBC 2.2; Hgb 10.2; HCt 30.5platlet 223k;Neutrophil 56.8; ANC 1.2; Chem within acceptable limits except for K+ 2.8; AST 36. MRI brain w/wo contrast on 05/18/18 negative for metastatic disease. 1. Stage IV poorly differentiated lung carcinoma Dx: 04/2018 revealed by EBUS and CT PET scan on April, . s/p C1/D1Pem/Pem/Carbo on 06/14/2018. doing great, minimal side effects. She does appear to have a substantial mass in the right lung, but does appear to have lung collapse that could be contributing to the hypermetabolism noted on her CT PET scan. That said, she does have documented mediastinal lymphadenopathy, at least N2 disease, and her CT PET is also revealing of contralateral pulmonary nodules that are very concerning for metastatic deposits. 2. Electrolyte Imbalance. K+ today is 2.8 we will replete with 40meqIV x1, plys 1 liter of hydration, given s/p carboplatin. 3. Skin rash and itchiness. rash and itchiness to arms and scalp, patient may apply vanicream/triamcinolone compound to affected are TID, and may take Benadryl 25mg PO q HS.PRN PLAN 1. F/U Monday06/25/18 with cbc/diff, cmp, mag 2. Add mag to today's labs 3. hydrate with 1Liter NS IV 4. replete K+40meq Iv 5. oral potassium chloride replacement 20meq Po BIDx5 days. 6.Monitor lytes, counts and skin manifestations. 7. Patient to call cancer center with any issues or concerns. - Education, patient instructed to go to ER immediately and, or call Clinic if any Shortness of Breath, Temp >/=100.4, fevers, chills, cardiac type chest pain, bleeding, excessive bruising, headaches, blurry vision, dizziness, abdominal pain, difficulty swallowing, and pain unrelieved by medication, skin rashes, oozing wounds. TIME SPENT: 30 minutes 25 > minutes includes but not limited to discussion, counselling and co-ordination~ of care. Discussion with other health care providers, record review, review of lab work, diagnostic tests. Plan discussed extensively with patient, and daughter. All the questions answered today. Thank you for the opportunity to be involved in the care of Margarita Castañeda. Billing Level return visit 4 JEYSON VAZ, ONC Jun 21, 2018 16:32
[2018-06-21 16:58] VITALS: BP 130/57
[2018-06-25 09:40] VITALS: BP 133/55
[2018-06-25 09:42] LABS: PLATELET COUNT, AUTOMATED 119 K/uL (150-450)
--- NOTE | 2018-06-25 11:29 | Oncology Progress Note ---
History of Present Illness Evaluation Evaluation Date: Jun 25, 2018 Evaluation Time: 10:11 Primary Care Provider Primary Care Provider: Omaira Gipson NP Accompanied by Accompanied by: Daughter Last seen by : Twin 06/20/18 Chief Complaint Chief Complaint f/u management Stage IV poorly differentiated lung carcinoma Treatment Treatment Pembrolizumab/Premetrexed/CArboplatin Q21 days. -06/14/2018 C1/D1 Pembrolizumab (200mg)/Premetrexed(785mg)/CArboplatin (472mg) HPI HPI Margarita Castañeda is a delightful 72-year-old female who has Stage IV poorly differentiated lung carcinoma Dx: 04/2018 revealed by EBUS and CT PET scan on April, . s/p C1/D1Pem/Pem/Carbo on 06/14/2018. Patient prsesnt to cancer center today for follow up on her disease management and hypokalemia. K+ today 06/25/18 is 3.9 patient is AAOX4 , and hemodynamically stable. Besides expected drop in counts after chemo, occasional palpitations, occasional non bloody cough, and skin itchiness and rashes to arms and scalp (improving on topical vanicream/triamcinolone), she reports no major changes from health status baseline. She denies no cardiac type chest pain, no SOB, no abdominal pain, no fevers at home, no spontaneous bleeding, no dark stools, no blood in the stool or urine, no hemoptysis, no bruising, no blurry vision, no mouth ulcers, appetite , weight and bowel and bladder pattern within baseline.no reported toxicities thus far. Significant PMHx of COPD ( O2 dependent 3L nasal canula.); GERD. Living Conditions daughter Diagnostic Studies Result Diagram: 06/25/18 0937 06/25/18 0937 Social/Occupational History Social History: Social History This is a 72 Yr old White female, she is M and has [] Children Hx Smoking: Yes (1 PPD FOR 47 YRS) Allergies & Medications Allergies: Coded Allergies: Penicillins (Verified Allergy, Intermediate, 04/30/16) Home Meds Active Scripts Docusate Sodium (COLACE) 100 Mg Capsule, 1 CAP PO BID, #30 CAP 0 Refills TAKE WITH A FULL GLASS OF WATER Prov:INEZ CORNELL MD 06/07/18 Oxycodone Hcl/Acet 5/325 Mg (ENDOCET 5-325 TABLET) 1 Each Tablet, 1 TAB PO Q4H PRN for PAIN, #20 TAB 0 Refills Prov:INEZ CORNELL MD 06/07/18 Reported Medications Triamcinolone Acetonide 0.1% Cr 15 Gm Tube (TRIAMCINOLONE ACETONIDE 0.1% CREAM) 15 Gm Cream..g., 15 GM TP PRN for ITCHING, TUBE 06/21/18 Guaifenesin/Codeine Phosphate (CHERATUSSIN AC SYRUP) 118 Ml Liquid, 5 ML PO Q6H PRN for COUGH 06/05/18 Benzonatate 100 Mg Cap (TESSALON PERLE 100 MG CAP) 100 Mg Capsule, 100 MG PO Q8H PRN for COUGH, CAP 06/05/18 Fluticasone/Salmeterol (ADVAIR 250-50 DISKUS) 1 Each Disk.w.dev, 1 EACH IH BID 05/30/18 Citalopram Hydrobromide (CELEXA) 40 Mg Tablet, 40 MG PO QDAY, #5 TAB 09/08/15 Omeprazole Magnesium (PRILOSEC OTC) 20 Mg Tablet.dr, 1 TAB PO BID, TAB 09/08/15 Hydrochlorothiazide (HYDROCHLOROTHIAZIDE) 25 Mg Tablet, 1 TAB PO QDAY, TAB 09/08/15 Oxybutynin Chloride (OXYBUTYNIN CHLORIDE) 5 Mg Tablet, 5 MG PO QDAY, TAB 09/08/15 Review of Systems Constitution: Denies Appetite/Weight Change, Denies Fever/Chills/Sweating, Denies Recent Infection, Denies Other HEENT: No EARS: Tinnitus, No NOSE: Nasal Discharge, No THROAT: Sore Throat, No EYES: Dipolpia, No EARS: Hearing Problems, No NOSE: Epistaxis, No THROAT: Mouth Ulcers, No EYES: Vision Change, No OTHER Respiratory: Shortness of Breath (on Exertion, O2 dependent) Cardiovascular: No Chest Pain, No Orthopnea, No Edema; Palpitations (Occasionally); No OTHER Gastrointestinal: No Nausea, No Vomitting, No Diarrehea, No Constipation, No Heart Burn, No Swallowing Difficulties, No Abdominal Pain, No Other Gentiourinary: No Hematuria, No Dysuria, No Nocturia, No Other Musculoskeletal: Joint Pain Hematological: Fatigue Skin: Skin Rash (improving); No Lumps, No Erythema, No Dry Skin, No Moist Skin; Other Psychiatric: No Anxiety, No Depression, No Other Vital Signs Vital Signs Temperature: 98.2 Pulse: 59 BP Systolic: 133 BP Diastolic: 55 Respiratory Rate: 16 O2 SAT: 97 O2 Delivery: Height (feet) Height (inches) 59.44 Weight lb: 133 Weight oz: Weight Kg (Onel): Pain: 0 Physical Exam General: Looks Stable, Other (In no acute dostress) HEENT: HEAD:Atraumatic; No EYES: Conjuctivitis, No EYES: Icterus, No MOUTH: Mucocitis, No MOUTH: Oral Thrush, No SINUS: Tenderness to Palpation, No Other Neck: Supple; No Cervical Lymphadenopathy, No Subclavicular Lymphadopathy, No Thyromegaly, No Other Lungs: Other (Dimisnhed, occassional cough,) Heart: Regular Rate and Rhythm Abdomen: Soft and Nontender Extremities: No Cyanosis, No Clubbing, No Edema, No Other Lymphatics: No Peripheral Lymphadenopathy, No Other Psychiatric: No Mood appears normal, No Affect appears normal, No Other Skin: Skin Rashes (improving) Breast: No No Masses, No No Nipple Discharge, No No Skin Changes, No Other Assessment and Plan Assessment and Plan Margarita Castañeda is a delightful 72-year-old female who has Stage IV poorly differentiated lung carcinoma Dx: 04/2018 revealed by EBUS and CT PET scan on April, . s/p C1/D1Pem/Pem/Carbo on 06/14/2018. Patient present to cancer center today for follow up on her disease management and hypokalemia. K+ today 06/25/18 is 3.9 patient is AAOX4 , and hemodynamically stable. Besides expected drop in counts after chemo, occasional palpitations, occasional non bloody cough, and skin itchiness and rashes to arms and scalp (improving on topical vanicream/triamcinolone), she reports no major changes from health status b aseline. She denies no cardiac type chest pain, no SOB, no reported toxicities thus far. Significant PMHx of COPD ( O2 dependent 3L nasal canula.); GERD. Patient and daughter explained to me the type of insurance and coverage they have, . They do not carry Medicare part D, making medications copays out of pocket a burden. we will be conscious about this in terms of resources and will introduce [employer] social welfare clerk to explore other options that may be available for financial assistance. DIAGNOSTIC DATA WBC 1.9; Hgb 9.2.; HCt 27.3.platelet 119k;Neutrophil 31.1; ANC 0.6; Chemistry panel within acceptable limits MRI brain w/wo contrast on 05/18/18 negative for metastatic disease. 1. Stage IV poorly differentiated lung carcinoma Dx: 04/2018 revealed by EBUS and CT PET scan on April, . s/p C1/D1Pem/Pem/Carbo on 06/14/2018. doing great, minimal side effects. She does appear to have a substantial mass in the right lung, but does appear to have lung collapse that could be contributing to the hypermetabolism noted on her CT PET scan. That said, she does have documented mediastinal lymphadenopathy, at least N2 disease, and her CT PET is also revealing of contralateral pulmonary nodules that are very concerning for metastatic deposits. 2. Neutropenia. Chemo induced. s/p Pem/Pem/Carbo on 06/14/2018. will initiate bro ad spectrum empiric abx coverage pffx. and recheck counts on 06/28/18 3. Skin rash and itchiness. rash and itchiness to arms and scalp, improving patient to continue to apply vanicream/triamcinolone compound to affected are TID, and may take Benadryl 25mg PO q HS.PRN 4. Electrolyte Imbalance. K+ today is 3.9 we will replete lyes PRN 5. Nausea. on compazine PRN PLAN 1. F/U 06/28/18 with cbc/diff, cmp, mag 2. F/u With Dr. Murcia NExt viist. Will discuss with Dr Murcia and Pharmacist to revisit dose of chemo, given significant drop in counts. 3. Initiate PPfx BActrim 1 tab Ds Po Q-MWF#30 pills plus 2 refills. 4. Levaquin 500mg PO daily X 10 days 5. oral potassium chloride replacement 20meq PO Daily, will recheck K+on and adjust accordingly. 6.tight Monitor lytes, counts, and skin manifestations. 7. Put in ABN approval for Growth factor coverage after next upcoming round of chemo 8. IF not Growth factors coverage for financial reasons Will initiate empiric abx ppfx. 9.Patient may take Mg oxide OTC 250-400mg Po daily 10. Introduced social welfare clerk to patient for any additional resources available to help with cost of medications, as patient does not have Medicare part D. 11. Patient to call cancer center with any issues or concerns. - Education, patient instructed to go to ER immediately and, or call Clinic if any Shortness of Breath, Temp >/=100.4, fevers, chills, cardiac type chest pain, bleeding, excessive bruising, headaches, blurry vision, dizziness, abdominal pain, difficulty swallowing, and pain unrelieved by medication, skin rashes, oozing wounds. TIME SPENT: 20 minutes 15 > minutes includes but not limited to discussion, counselling and co-ordination~ of care. Discussion with other health care providers, record review, review of lab work, diagnostic tests. Plan discussed extensively with patient, and daughter. All the questions answered today. Thank you for the opportunity to be involved in the care of Margarita Catsañeda. Billing Level return visit 3 JEYSON VAZ, ONC Jun 25, 2018 11:29
[2018-06-28 13:33] VITALS: BP 136/70
[2018-06-28 13:39] LABS: PLATELET COUNT, AUTOMATED 142 K/uL (150-450)
--- NOTE | 2018-06-28 14:55 | Oncology Progress Note ---
History of Present Illness Evaluation Evaluation Date: Jun 28, 2018 Evaluation Time: 14:00 Primary Care Provider Primary Care Provider: Omaira Gipson NP Accompanied by Accompanied by: Daughter Last seen by : Twin 06/20/18 Chief Complaint Chief Complaint f/u management Stage IV poorly differentiated lung carcinoma Treatment Treatment Pembrolizumab/Premetrexed/CArboplatin Q21 days. -06/14/2018 C1/D1 Pembrolizumab (200mg)/Premetrexed(785mg)/CArboplatin (472mg) HPI HPI Margarita Castañeda is a delightful 72-year-old female who has Stage IV poorly differentiated lung carcinoma Dx: 04/2018 revealed by EBUS and CT PET scan on April, . s/p C1/D1Pem/Pem/Carbo on 06/14/2018. Patient present to cancer center today for follow up on her disease management and hypokalemia. K+ today 06/28/18 is 3.6 on oral K+ supplementation. patient is AAOX4 , and hemodynamically stable. Besides expected drop in counts after chemo, occasional palpitations, occasional non bloody cough, and skin itchiness and rashes to arms and scalp (improving on topical vanicream/triamcinolone), She reports no major changes from health status baseline. minor nervousness for which she noticed after taking Levaquin. She denies any cardiac type chest pain, no SOB, no abdominal pain, no fevers at home, no spontaneous bleeding, no dark stools, no blood in the stool or urine, no hemoptysis, no bruising, no blurry vision, no mouth ulcers, appetite , weight and bowel and bladder pattern within baseline.no reported toxicities thus far. Patient informs me that she did strain the right side of her back. that happened this morning while reaching for some items in the house, the pain level 4 ( 0-1- scale) is alleviated with 1tab of xtra strength tylenol. Significant PMHx of COPD ( O2 dependent 3L nasal canula.); GERD. Diagnostic Studies Result Diagram: 06/25/18 0937 06/25/18 0937 Social/Occupational History Social History: Social History This is a 72 Yr old White female, she is M and has [] Children Hx Smoking: Yes (1 PPD FOR 47 YRS) Allergies & Medications Allergies: Coded Allergies: Penicillins (Verified Allergy, Intermediate, 04/30/16) Home Meds Active Scripts Docusate Sodium (COLACE) 100 Mg Capsule, 1 CAP PO BID, #30 CAP 0 Refills TAKE WITH A FULL GLASS OF WATER Prov:INEZ CORNELL MD 06/07/18 Oxycodone Hcl/Acet 5/325 Mg (ENDOCET 5-325 TABLET) 1 Each Tablet, 1 TAB PO Q4H PRN for PAIN, #20 TAB 0 Refills Prov:INEZ CORNELL MD 06/07/18 Reported Medications Triamcinolone Acetonide 0.1% Cr 15 Gm Tube (TRIAMCINOLONE ACETONIDE 0.1% CREAM) 15 Gm Cream..g., 15 GM TP PRN for ITCHING, TUBE 06/21/18 Guaifenesin/Codeine Phosphate (CHERATUSSIN AC SYRUP) 118 Ml Liquid, 5 ML PO Q6H PRN for COUGH 06/05/18 Benzonatate 100 Mg Cap (TESSALON PERLE 100 MG CAP) 100 Mg Capsule, 100 MG PO Q8H PRN for COUGH, CAP 06/05/18 Fluticasone/Salmeterol (ADVAIR 250-50 DISKUS) 1 Each Disk.w.dev, 1 EACH IH BID 05/30/18 Citalopram Hydrobromide (CELEXA) 40 Mg Tablet, 40 MG PO QDAY, #5 TAB 09/08/15 Omeprazole Magnesium (PRILOSEC OTC) 20 Mg Tablet.dr, 1 TAB PO BID, TAB 09/08/15 Hydrochlorothiazide (HYDROCHLOROTHIAZIDE) 25 Mg Tablet, 1 TAB PO QDAY, TAB 09/08/15 Oxybutynin Chloride (OXYBUTYNIN CHLORIDE) 5 Mg Tablet, 5 MG PO QDAY, TAB 09/08/15 Review of Systems Constitution: Denies Appetite/Weight Change, Denies Fever/Chills/Sweating, Denies Recent Infection, Denies Other HEENT: No EARS: Tinnitus, No NOSE: Nasal Discharge, No THROAT: Sore Throat, No EYES: Dipolpia, No EARS: Hearing Problems, No NOSE: Epistaxis, No THROAT: Mouth Ulcers, No EYES: Vision Change, No OTHER Respiratory: Shortness of Breath (on Exertion, O2 dependent) Cardiovascular: No Chest Pain, No Orthopnea, No Edema; Palpitations (Occasionally); No OTHER Gastrointestinal: No Nausea, No Vomitting, No Diarrehea, No Constipation, No Heart Burn, No Swallowing Difficulties, No Abdominal Pain, No Other Gentiourinary: No Hematuria, No Dysuria, No Nocturia, No Other Musculoskeletal: Joint Pain Hematological: Fatigue Skin: Skin Rash (improving); No Lumps, No Erythema, No Dry Skin, No Moist Skin; Other Psychiatric: No Anxiety, No Depression, No Other Vital Signs Vital Signs Temperature: 97.6 Pulse: 72 BP Systolic: 136 BP Diastolic: 70 Respiratory Rate: 16 O2 SAT: 98 O2 Delivery: Height (feet) Height (inches) 59.44 Weight lb: 133 Weight oz: Weight Kg (Onel): Pain: 4 ECOG-2 Physical Exam General: Looks Stable, Other (In no acute dostress) HEENT: HEAD:Atraumatic; No EYES: Conjuctivitis, No EYES: Icterus, No MOUTH: Mucocitis, No MOUTH: Oral Thrush, No SINUS: Tenderness to Palpation, No Other Neck: Supple; No Cervical Lymphadenopathy, No Subclavicular Lymphadopathy, No Thyromegaly, No Other Lungs: Other (Dimisnhed, occassional cough,) Heart: Regular Rate and Rhythm Abdomen: Soft and Nontender Extremities: No Cyanosis, No Clubbing, No Edema, No Other Lymphatics: No Peripheral Lymphadenopathy, No Other Psychiatric: No Mood appears normal, No Affect appears normal, No Other Skin: Skin Rashes (improving) Breast: No No Masses, No No Nipple Discharge, No No Skin Changes, No Other Assessment and Plan Assessment and Plan Margarita Castañeda is a delightful 72-year-old female who has Stage IV poorly differentiated lung carcinoma Dx: 04/2018 revealed by EBUS and CT PET scan on April, . s/p C1/D1Pem/Pem/Carbo on 06/14/2018. Patient present to cancer center today for follow up on her disease management and hypokalemia. K+ today 06/28/18 is 3.6 on oral K+ supplementation. patient is AAOX4 , and hemodynamically stable. Besides expected drop in counts after chemo, occasional palpitations, occasional non bloody cough, and skin itchiness and rashes to arms and scalp (improving on topical vanicream/triamcinolone), She reports no major changes from health status baseline. minor nervousness for which she noticed after taking Levaquin. She denies any cardiac type chest pain, no SOB, no abdominal pain, no fevers at home, no spontaneous bleeding. No weight change, oral intake good. DIAGNOSTIC DATA Reviewed per [email or web address]. MRI brain w/wo contrast on 05/18/18 negative for metastatic disease. 1. Stage IV poorly differentiated lung carcinoma Dx: 04/2018 revealed by EBUS and CT PET scan on April, . s/p C1/D1Pem/Pem/Carbo on 06/14/2018. doing great, minimal side effects. She does appear to have a substantial mass in the right lung, but does appear to have lung collapse that could be contributing to the hypermetabolism noted on her CT PET scan. That said, she does have documented mediastinal lymphadenopathy, at least N2 disease, and her CT PET is also revealing of contralateral pulmonary nodules that are very concerning for metastatic deposits. 2. Neutropenia. Chemo induced. s/p Pem/Pem/Carbo on 06/14/2018. Continue broad spectrum empiric abx coverage pffx. and recheck counts next visit 3. Skin rash and itchiness. resolved. rash and itchiness to arms and scalp, im proving patient to continue to apply vanicream/triamcinolone compound to affected are TID, and may take Benadryl 25mg PO q HS.PRN 4. Electrolyte Imbalance. K+ today is 3.6 on oral K+ supplement 5. Nausea. on compazine PRN- she has not needed to use much of the antiemetic . 6. Right back pain. she did strain the right side of her back. that happened this morning while reaching for some items in the house, the pain level 4 ( 0-1- scale) is alleviated with 1tab of xtra strength tylenol. hot and cold contrast and rest recommended. Patient may need to f/u with PCP if symptoms do not resolve in the next few weeks. PLAN 1.Continue treatment plan 2. F/u With Dr. Murcia NExt viist. Will discuss with Dr Murcia and Pharmacist to revisit dose of chemo, given significant drop in counts. 3. Initiate PPfx BActrim 1 tab Ds Po Q-MWF#30 pills plus 2 refills PRN 4. Levaquin 250mg PO daily X 7 days 5. oral potassium chloride replacement 40meq PO Daily, 6. tight Monitor lytes, counts, and skin manifestations. 7. f/u with PCP if back strain pain does not resolve in 3 week or more. Patient to call cancer center with any issues or concerns. - Education, patient instructed to go to ER immediately and, or call Clinic if any Shortness of Breath, Temp >/=100.4, fevers, chills, cardiac type chest pain, bleeding, excessive bruising, headaches, blurry vision, dizziness, abdominal pain, difficulty swallowing, and pain unrelieved by medication, skin rashes, oozing wounds. TIME SPENT: 20 minutes 15 > minutes includes but not limited to discussion, counselling and co-ordination~ of care. Discussion with other health care providers, record review, review of lab work, diagnostic tests. Plan discussed extensively with patient, and daughter. All the questions answered today. Thank you for the opportunity to be involved in the care of Margarita Castañeda. Billing Level return visit 3 JEYSON VAZ, ONC Jun 28, 2018 14:55
[2018-07-04 16:29] VITALS: BP 139/75
--- NOTE | 2018-07-04 21:24 | ONCOLOGY FOLLOW UP NOTE ---
EVENT DATE: July 04, 2018 REASON FOR FOLLOWUP Stage IV, poorly differentiated lung carcinoma, ongoing palliative carboplatin, pemetrexed, pembrolizumab. CHIEF COMPLAINT Fatigue. INTERIM HISTORY Ms. Smith returns to clinic for a followup visit today. She is accompanied by her daughter. She states that she feels ready to move forward with her second cycle of treatment which is due for this Monday. In general, she is feeling pretty well all things considered. She remains on a stable amount of supplemental oxygen. She reports no new pain. Her appetite tends to be pretty good. She is staying as active as she can. She does get winded with exertion, and she does have an occasional cough. This has improved over time, however. She reports no new abdominal symptoms. She has had no changes in her bowel habits, and she denies new urinary symptoms. REVIEW OF SYSTEMS Otherwise negative, and all systems reviewed. PAST MEDICAL HISTORY 1. COPD. 2. History of smoking, patient quit in 2011. 3. Gastroesophageal reflux disease. 4. Macular degeneration. CURRENT MEDICATIONS 1. Colace p.r.n. 2. Endocet p.r.n. 3. Triamcinolone cream p.r.n. 4. Cheratussin AC syrup. 5. Tessalon Perles. 6. Advair. 7. Celexa. 8. Prilosec. 9. Hydrochlorothiazide. 10. Oxybutynin. ALLERGIES PENICILLIN. SOCIAL HISTORY The patient is currently a nonsmoker, but does have a history of heavy smoking. She quit in 2011. There is no history of alcohol abuse or illicit drug use. FAMILY HISTORY There is a history of heart disease and hypertension as well as Alzheimer disease. There are no known cancers in the family. VITAL SIGNS Temperature 97.5, blood pressure 139/75, heart rate is 72, respirations 16, oxygen saturation is 93% on 3L. Weight is 62.6 kg. PHYSICAL EXAMINATION GENERAL: Patient is alert and oriented times three, in no apparent distress, sitting in the exam room chair. She is in excellent spirits and quite interactive. HEENT: Anicteric sclerae. She is wearing oxygen by nasal cannula. NEUROLOGIC: Grossly nonfocal, although her gait is somewhat slow and antalgic. EXTREMITIES: No edema, clubbing, or cyanosis. There is no erythema or tenderness to palpation. SKIN: No concerning rash or lesion. LABORATORY STUDIES Laboratory studies are reviewed per the [facility] record. IMAGING None today. ASSESSMENT AND PLAN Stage IV, poorly differentiated lung carcinoma. Ms. Smith has done pretty well with her first cycle of chemotherapy all things considered. She has had a slight improvement in her cough, and this is encouraging. She remains afebrile. Nausea has been minimal and well controlled with medications at home. Her performance status remains reasonable for ongoing treatment. We spent time reviewing her labs today. These will be redrawn on Monday morning in preparation for possible treatment. Her most recent labs do reveal cytopenias due to chemotherapy, however. We discussed the possibility of the need for dose reduction if her counts do not recover in time to receive her upcoming cycle, and her upcoming cycle would need to be delayed for these cytopenias. We did discuss the use of Neulasta today, and we discussed common side effects. For the time being, she would like to hold off on this if possible. As such, we would rely more on dose reduction as opposed to growth factor support. She has no signs or symptoms to suggest immune-mediated toxicity. She had been taking antibiotics during her period of neutropenia, and I have recommended that we hold off on prophylactic antibiotics for her neutropenia. That said, she does know to call if she experiences fever at home, and we would very likely institute antibiotics at that time. The patient and her daughter had several additional questions for me, and I believe I answered all their questions to their satisfaction. We will continue with weekly followup for the time being. MTDD
[2018-07-06 11:19] VITALS: BP 121/52
[2018-07-06] MEDS: PALONOSETRON 0.25 MG/5 ML VIAL IVP PRN (12:13)
[2018-07-06] MEDS: LIDOCAINE/SOD BICARB 8.4% SYR ID PRN (12:13)
[2018-07-06] MEDS: NS(*) 0.9% 500 ML BAG 500 ML IV PRN (12:13)
[2018-07-06] MEDS: HEPARIN FLSH (PORT) 500 UN/5ML IVP PRN (12:13)
[2018-07-06] MEDS: PEMBROLIZUMAB 100 MG/4 ML SDV 200 MG in NS(*) 0.9% 50 ML BAG 50 ML IV PRN (13:22)
[2018-07-06] MEDS: PEMETREXED DISOD IVPB PRN (14:18)
[2018-07-06] MEDS: NS 0.9% IVPB PRN (14:18)
[2018-07-06 15:46] VITALS: BP 90/53
--- NOTE | 2018-07-06 16:52 | Medical Nutrition Therapy ---
Nutrition Anthropometrics Height (Inches): 59.44 Height (Calculated Centimeters: 150.9776 Weight (Pounds): 137 (patient states her usual weight was 148 lbs) Hx Weight Loss: Yes (9 lbs in 2 weeks) Nutritional Education Nutrition Education Topic: Other (Eating and Cancer Treatment ) Learning Readiness: Interested Teaching Methods: Discussion, Handout Response to Teaching: Verbalize understanding Teaching Recipient: Patient, Family Nutrition Counseling: Reviewed handout on Eating during Cancer Treatment, discussed potential nutrition impact symptoms and encouraged patient to review information if she experiences any of the symptoms. Nutrition Monitoring & Eval Nutrition Goals: Eat 75-100% Meal, Drink > 2 liters/day Nutritional Goals Comment: Maintain current weight, encouraged increasing calories to meet increased calorie needs Nutrition Follow-Up: Good Intake RD Patient Assessment Time: [address] Assessment Type: RD Education Patient Nutrition Acuity: 3-Mild Nutritional Comment: Patient not currently experiencing any nutrition impact symptoms. Encouraged patient to call or let RN know if he would like to discuss any nutrition issues with me. MERI JACOBSON RDN, WAQAS Jul 06, 2018 16:52
[2018-07-13 12:42] LABS: PLATELET COUNT, AUTOMATED 266 K/uL (150-450)
[2018-07-13 12:55] VITALS: BP 123/59
[2018-07-13] MEDS: NS(*) 0.9% 500 ML BAG 500 ML IV PRN (13:19)
[2018-07-13] MEDS: LIDOCAINE/SOD BICARB 8.4% SYR ID PRN (13:19)
--- NOTE | 2018-07-13 14:31 | Oncology Progress Note ---
History of Present Illness Evaluation Evaluation Date: Jul 13, 2018 Evaluation Time: 13:10 Primary Care Provider Primary Care Provider: Omaira Gipson NP Accompanied by Accompanied by: Daughter Last seen by : Twin 07/06/18 Chief Complaint Chief Complaint f/u management Stage IV poorly differentiated lung carcinoma Treatment Treatment Pembrolizumab/Premetrexed/CArboplatin Q21 days. -06/14/2018 C1/D1 Pembrolizumab (200mg)/Premetrexed(785mg)/CArboplatin (472mg) Pembrolizumab/Premetrexed/CArboplatin Q21 days. -07/06/2018 C2/D1 Pembrolizumab (200mg)/Premetrexed(785mg)/CArboplatin (435mg) HPI HPI Margarita Castañeda is a delightful 72-year-old female who has Stage IV poo rly differentiated lung carcinoma Dx: 04/2018 revealed by EBUS and CT PET scan on April, . s/p C2/D1Pem/Pem/Carbo on 07/06/2018. Patient present to cancer center today for follow up on her disease management. Labs reveal hypokalemia. K+ today 07/13/18 is 2.9 We will replete K+, patient will also resume her oral Potassium supplement. Patient is AAOX4 , and hemodynamically stable. Overall she is feeling much better. Besides expected drop in counts after chemo, and a she feel a little more tired this time around, but her Performance status remain withn baseline, she is able t ge things done around the house. She does have occasional palpitations, occasional non bloody cough, and skin itchiness and rashes to arms and scalp (improving on topical vanicream/triamcinolone), She reports no major changes from health status baseline. She denies any cardiac type chest pain, no SOB, no abdominal pain, no fevers at home, no spontaneous bleeding, no dark stools, no blood in the stool or urine, no hemoptysis, no bruising, no blurry vision, no mouth ulcers, appetite , weight and bowel and bladder pattern within baseline.no reported toxicities thus far. Significant PMHx of COPD ( O2 dependent 3L nasal canula.); GERD. Living Conditions Lives wit her daughter. Diagnostic Studies Result Diagram: 07/13/18 1232 07/13/18 1232 Social/Occupational History Social History: Social History This is a 72 Yr old White female, she is M and has [] Children Hx Smoking: Yes (1 PPD FOR 47 YRS) Allergies & Medications Allergies: Coded Allergies: Penicillins (Verified Allergy, Intermediate, 04/30/16) Home Meds Active Scripts Potassium Chloride (POTASSIUM CHLORIDE) 20 Meq Packet, 20 MEQ PO QDAY for 30 Days, PACKET Prov:JEYSON VAZ, ONC 06/28/18 Docusate Sodium (COLACE) 100 Mg Capsule, 1 CAP PO BID, #30 CAP 0 Refills TAKE WITH A FULL GLASS OF WATER Prov:INEZ CORNELL MD 06/07/18 Oxycodone Hcl/Acet 5/325 Mg (ENDOCET 5-325 TABLET) 1 Each Tablet, 1 TAB PO Q4H PRN for PAIN, #20 TAB 0 Refills Prov:INEZ CORNELL MD 06/07/18 Reported Medications Triamcinolone Acetonide 0.1% Cr 15 Gm Tube (TRIAMCINOLONE ACETONIDE 0.1% CREAM) 15 Gm Cream..g., 15 GM TP PRN for ITCHING, TUBE 06/21/18 Guaifenesin/Codeine Phosphate (CHERATUSSIN AC SYRUP) 118 Ml Liquid, 5 ML PO Q6H PRN for COUGH 06/05/18 Benzonatate 100 Mg Cap (TESSALON PERLE 100 MG CAP) 100 Mg Capsule, 100 MG PO Q8H PRN for COUGH, CAP 06/05/18 Fluticasone/Salmeterol (ADVAIR 250-50 DISKUS) 1 Each Disk.w.dev, 1 EACH IH BID 05/30/18 Citalopram Hydrobromide (CELEXA) 40 Mg Tablet, 40 MG PO QDAY, #5 TAB 09/08/15 Omeprazole Magnesium (PRILOSEC OTC) 20 Mg Tablet.dr, 1 TAB PO BID, TAB 09/08/15 Hydrochlorothiazide (HYDROCHLOROTHIAZIDE) 25 Mg Tablet, 1 TAB PO QDAY, TAB 09/08/15 Oxybutynin Chloride (OXYBUTYNIN CHLORIDE) 5 Mg Tablet, 5 MG PO QDAY, TAB 09/08/15 Review of Systems Constitution: Denies Appetite/Weight Change, Denies Fever/Chills/Sweating, Denies Recent Infection, Denies Other HEENT: No EARS: Tinnitus, No NOSE: Nasal Discharge, No THROAT: Sore Throat, No EYES: Dipolpia, No EARS: Hearing Problems, No NOSE: Epistaxis, No THROAT: Mouth Ulcers, No EYES: Vision Change, No OTHER Respiratory: Shortness of Breath (on Exertion, O2 dependent) Cardiovascular: No Chest Pain, No Orthopnea, No Edema; Palpitations (Occasionally); No OTHER Gastrointestinal: No Nausea, No Vomitting, No Diarrehea, No Constipation, No Heart Burn, No Swallowing Difficulties, No Abdominal Pain, No Other Gentiourinary: No Hematuria, No Dysuria, No Nocturia, No Other Musculoskeletal: Joint Pain Hematological: Fatigue Skin: No Lumps, No Erythema, No Dry Skin, No Moist Skin; Other Psychiatric: No Anxiety, No Depression, No Other Vital Signs Vital Signs Temperature: 97.8 Pulse: 57 BP Systolic: 123 BP Diastolic: 59 Respiratory Rate: 16 O2 SAT: 100 O2 Delivery: Height (feet) Height (inches) 59.44 Weight lb: 137 Weight oz: Weight Kg (Onel): Pain: 0 ECOG-2 Physical Exam General: Looks Stable, Other (In no acute dostress) HEENT: HEAD:Atraumatic; No EYES: Conjuctivitis, No EYES: Icterus, No MOUTH: Mucocitis, No MOUTH: Oral Thrush, No SINUS: Tenderness to Palpation, No Other Neck: Supple; No Cervical Lymphadenopathy, No Subclavicular Lymphadopathy, No Thyromegaly, No Other Lungs: Other (Dimisnhed, occassional cough,) Heart: Regular Rate and Rhythm Abdomen: Soft and Nontender Extremities: No Cyanosis, No Clubbing, No Edema, No Other Lymphatics: No Peripheral Lymphadenopathy, No Other Psychiatric: No Mood appears normal, No Affect appears normal, No Other Skin: Skin Rashes (resolved) Breast: No No Masses, No No Nipple Discharge, No No Skin Changes, No Other Assessment and Plan Assessment and Plan Margarita Castañeda is a delightful 72-year-old female who has Stage IV poorly differentiated lung carcinoma Dx: 04/2018 revealed by EBUS and CT PET scan on April, . s/p C2/D1Pem/Pem/Carbo on 07/06/2018. Patient present to cancer center today for follow up on her disease management. Labs reveal hypokalemia. K+ today 07/13/18 is 2.9 We will replete K+, patient will also resume her oral Potassium supplement. Patient is AAOX4 , and hemodynamically stable. Overall she is feeling much better. DIAGNOSTIC DATA Reviewed per charity: water. MRI brain w/wo contrast on 05/18/18 negative for metastatic disease. 1. Stage IV poorly differentiated lung carcinoma Dx: 04/2018 revealed by EBUS and CT PET scan on April, . s/p C2/D1Pem/Pem/Carbo on 07/06/2018. doing great, minimal side effects. She does appear to have a substantial mass in the right lung, but does appear to have lung collapse that could be contributing to the hypermetabolism noted on her CT PET scan. That said, she does have documented mediastinal lymphadenopathy, at least N2 disease, and her CT PET is also revealing of contralateral pulmonary nodules that are very concerning for metastatic deposits. 2. Neutropenia. Chemo induced. s/p Pem/Pem/Carbo on 07/06/2018. Continue neutropenic precautions, patient re-educated to call clinic immediately with any fevers. We will recheck counts next visit. Chemo may need to be delayed if counts do not meet acceptable parameters for next chemo cycle. 3. Skin rash and itchiness. resolved. rash and itchiness to arms and scalp, improving patient to continue to apply vanicream/triamcinolone compound to affected are TID, and may take Benadryl 25mg PO q HS.PRN 4. Electrolyte Imbalance. K+ today is 2.9. we will replete with potassium [id number] Iv x1 now, and resume oral K+ supplement 5. Nausea. on compazine PRN- she has not needed to use much of the antiemetic . 6. Right back pain. she did strain the right side of her back. that happened while reaching for some items in the house, the pain level 4 ( 0-1- scale) is alleviated with 1tab of xtra strength tylenol. hot and cold contrast and rest r ecommended. Patient may need to f/u with PCP if symptoms do not resolve in the next few weeks. PLAN 1.Continue treatment plan 2. Replete with potassium chloride 40meq Iv x1 now, and resume oral K+ supplement 20meq Po daily 30 pills, with 2 refills. 3.F/u With Dr. Murcia per protocol 4. tight Monitor lytes, counts, and skin manifestations. 5. cbc, cmp, mag with next lab drawn 6. Patient to call cancer center with any issues or concerns. - Education, patient instructed to go to ER immediately and, or call Clinic if any Shortness of Breath, Temp >/=100.4, fevers, chills, cardiac type chest pain, bleeding, excessive bruising, headaches, blurry vision, dizziness, abdominal pain, difficulty swallowing, and pain unrelieved by medication, skin rashes, ooz ing wounds. TIME SPENT: 30 minutes 25 > minutes includes but not limited to discussion, counselling and co-ordination~ of care. Discussion with other health care providers, record review, review of lab work, diagnostic tests. Plan discussed extensively with patient, and daughter. All the questions answered today. Thank you for the opportunity to be involved in the care of Ms. SmithEmilt. Billing Level return visit 4 JEYSON VAZ, ONC Jul 13, 2018 14:31
[2018-07-13 16:42] VITALS: BP 112/54
[2018-07-20 12:15] VITALS: BP 134/50
[2018-07-20 12:28] LABS: PLATELET COUNT, AUTOMATED 125 K/uL (150-450)
[2018-07-27] MEDS: LIDOCAINE/SOD BICARB 8.4% SYR ID PRN (11:03)
[2018-07-27 11:04] VITALS: BP 132/59
[2018-07-27] MEDS: NS(*) 0.9% 500 ML BAG 500 ML IV PRN (11:04)
[2018-07-27] MEDS: PALONOSETRON 0.25 MG/5 ML VIAL IVP PRN (11:37)
[2018-07-27] MEDS: HEPARIN FLSH (PORT) 500 UN/5ML IVP PRN (14:03)
[2018-07-27 14:15] VITALS: BP 119/54
[2018-08-01 13:41] VITALS: BP 107/59
[2018-08-01 14:02] LABS: PLATELET COUNT, AUTOMATED 221 K/uL (150-450)
--- NOTE | 2018-08-01 20:58 | ONCOLOGY FOLLOW UP NOTE ---
EVENT DATE: August 01, 2018 REASON FOR FOLLOWUP Stage IV poorly differentiated lung carcinoma. CHIEF COMPLAINT Fatigue. INTERIM HISTORY Ms. Smith returns to clinic for a followup visit today. She is accompanied by her daughter. She reports that things in general have been going better. Although she does have some fatigue and malaise in the first couple days of each chemotherapy cycle, in general her energy level has improved, as have her shortness of breath and cough. She currently reports no fever. Her appetite has been good, and her weight has been stable. She reports no new pain. She has had no problems with bowel or bladder abnormalities. She denies skin rash. She and her daughter have questions about next steps. REVIEW OF SYSTEMS Otherwise negative, and all systems were reviewed. PAST MEDICAL HISTORY 1. COPD. 2. History of smoking, patient quit in 2011. 3. Gastroesophageal reflux disease. 4. Macular degeneration. CURRENT MEDICATIONS 1. Citalopram. 2. Oxybutynin. 3. Hydrochlorothiazide. 4. Omeprazole. ALLERGIES PENICILLIN. SOCIAL HISTORY The patient is currently a nonsmoker, but does have a history of heavy smoking. She quit in 2011. There is no history of alcohol abuse or illicit drug use. FAMILY HISTORY There is a history of heart disease and hypertension as well as Alzheimer disease. There are no known cancers in the family. VITAL SIGNS Temperature 98.6, blood pressure 108/59, heart rate is 68, respirations 16, oxygen saturation is 98% on 3L nasal cannula. PHYSICAL EXAMINATION GENERAL: Patient is alert and oriented times three, in no apparent distress, sitting in the infusion chair. She is interactive and quite pleasant. She is in good spirits. HEENT: Anicteric sclerae. NEUROLOGIC: Grossly nonfocal, and her gait is normal. EXTREMITIES: No edema, clubbing, or cyanosis. There is no erythema or tenderness to palpation. SKIN: No concerning rash or lesion. LABORATORY DATA Reviewed per the [facility] record. IMAGING None today. ASSESSMENT AND PLAN Stage IV high-grade carcinoma of lung. I had a good visit with Margarita and her daughter today. Symptomatically, she continues to do better. As discussed, this is encouraging for the possibility of response to ongoing treatment with carboplatin, pemetrexed, and pembrolizumab. The patient does not have any signs or symptoms to suggest immune-mediated toxicity, and in general, her tolerance of treatment has been excellent. We discussed our plans for followup imaging. She does have the option of going to [place] for a CT/PET scan or get a contrast-enhanced CT of the chest, abdomen, and pelvis performed here in [place]. She would prefer the latter. This will be ordered today. I will be back in touch with her when the results of the CT scan are back. We have tentatively planned today for her to receive six cycles of palliative chemotherapy before transitioning to maintenance therapy, assuming that there is evidence of response on her upcoming imaging. Patient and her daughter had several additional questions for me today, and I believe I answered all their questions to their satisfaction. I will plan to see her back during my next [place] visit. DUTCH
[2018-08-10] MEDS: LIDOCAINE/SOD BICARB 8.4% SYR ID PRN (11:06)
[2018-08-10 11:14] LABS: PLATELET COUNT, AUTOMATED 69 K/uL (150-450)
--- NOTE | 2018-08-10 14:15 | RADIOLOGY IMAGING REPORT ---
FACILITY: [facility] [place] PATIENT NAME: Margarita Smith : 1945 MR: [id number] V: [id number] EXAM DATE: ORDERING PHYSICIAN: MIK HSIEH TECHNOLOGIST: Location: [facility] [place] Patient: Margarita Smith : 1945 Visit/Account:[id number] Date of Sevice: 08/10/2018 CHEST/AB/PELV W/WO CONTRAST HISTORY: Lung cancer ADDITIONAL HISTORY: None. TECHNIQUE: Pre and post administration of IV contrast axial images acquired through the chest abdome n and pelvis during the portal venous phase. Coronal and sagittal reformatting was also performed. D ose Lowering Technique One of the following dose optimization techniques was utilized in the performance of this exam: Autom ated exposure control; adjustment of the mA and/or kV according to the patient's size; or use of an i terative reconstruction technique. Specific details can be referenced in the facility's radiology C T exam operational policy. CONTRAST: 75 mL Isovue-370 COMPARISON: CT of the chest May 15, 2018 and PET/CT May 28, 2018 FINDINGS: CHEST: Lungs/Pleura: Previously noted mass in the medial aspect right upper lobe is partially decreased in size now measuring approximately 7.2 x 5.1 x 6.2 cm previously 6.8 x 9.2 x 8.8 cm the mass does still surrounding the right upper lobe bronchus is occluding the segmental bronchi. There is mass effect on the superior vena cava to slightly greater greater extent when compared to the prior study. Spicu lated left upper lobe nodules appear relatively unchanged although concerning for metastases. No andrea dence of pleural effusions Mediastinum/lymph nodes: Negative. Heart/vessels: Right IJ implanted port again seen distal tip in superior vena cava. Moderate arthro scopic calcifications the thoracic aorta and branch vessels including the coronary arteries Bones/soft tissues: Spondylotic changes of the thoracic spine again seen. There are vertebroplasty changes at T11 with paravertebral vertebroplasty cement be identified ABDOMEN AND PELVIS: Hepatobiliary: Postsurgical changes from a cholecystectomy Spleen: Negative. Pancreas: Negative. Adrenals: 6 x 9 mm left adrenal nodule appears unchanged. Right adrenal gland appears unremarkable Kidneys ureters and bladder : Left renal cysts appear relatively unchanged . Bladder is mostly deco mpressed and not ideally evaluated Genitalia: Postsurgical changes from hysterectomy GI: Negative. Vessels/spaces/nodes: At least moderate atherosclerotic calcifications throughout the abdomen and pe lvis. There is at least moderate amount of mural thrombus identified in the distal abdominal aorta Bones/soft tissues: There is a small ventral hernia containing fat just inferior to the umbilicus. There spondylotic changes of the thoracic spine Additional findings: None pertinent. IMPRESSION: Producing noted large mass right upper lobe is partially decreased in size as described above. There is mass effect on the superior vena cava which is to a slightly greater extent when compared to the prior study Spiculated left upper lobe nodules appear relatively unchanged although concerning for metastases. 6 x 9 mm left adrenal nodule appears unchanged Atherosclerotic calcifications throughout the chest abdomen and pelvis Small ventral hernia containing fat just inferior to the umbilicus. Additional chronic findings as described Report Dictated By: Susanna Decker MD at 08/10/2018 1:53 PM Report E-Signed By: Susanna Decker MD at 08/10/2018 2:10 PM WSN:[id number]
[2018-08-17 10:48] VITALS: BP 131/70
[2018-08-17] MEDS: PALONOSETRON 0.25 MG/5 ML VIAL IVP PRN (11:41)
[2018-08-17] MEDS: HEPARIN FLSH (PORT) 500 UN/5ML IVP PRN (11:42)
[2018-08-17] MEDS: LIDOCAINE/SOD BICARB 8.4% SYR ID PRN (11:42)
[2018-08-17] MEDS: NS(*) 0.9% 500 ML BAG 500 ML IV PRN (11:42)
[~2018-08-24] VITALS: Ht 151 cm; Wt 66.4 kg
[~2018-08-24 12:43] MED LIST changes: +ALTEPLASE RECOMB 2 MG VIAL IVP PRN; +CARBOPLATIN IVPB ONE; +CYANOCOBALAMIN 1000MCG/ML VIAL IM ONLY ONE; +CYANOCOBALAMIN 1000MCG/ML VIAL IM ONLY PRN; +DEXAMETHASONE SOD PHOS 10MG/ML IVP ONE; +DEXTROSE 5%(*) 100 ML BAG 100 ML IVPB PRN; +IOPAMIDOL 76% 75 ML INFUS BTL 75 ML ONE; +KCL (*) 20 MEQ/100 ML PREMIX 100 ML IVPB ONE; +KCL 2 MEQ/ML 20 MEQ/10 ML VIAL 40 MEQ in NS(*) 0.9% 1000 ML BAG 1,000 ML IV ONE; +KCL/NS* 20 MEQ/1000 ML PREMIX 1,000 ML IV ONE; +NS 0.9% IVPB ONE; +NS(*) 0.9% 100 ML BAG 100 ML IVPB PRN; +PEMBROLIZUMAB 100 MG/4 ML SDV 200 MG in NS(*) 0.9% 50 ML BAG 50 ML IV ONE; +PEMETREXED DISOD IVPB ONE; +WATER FOR INJ,STERILE 20 ML IVP PRN; +[UNRECOGNIZED DRUG - OTHER] IVPB ONE
[2018-08-24 12:52] VITALS: BP 138/70
[2018-08-24 13:05] LABS: PLATELET COUNT, AUTOMATED 210 K/uL (150-450)
== END 2018-08-27 ==
LOC: SPU 12:43
PROVIDERS: ATTEND Internal Medicine Medical Oncology
DX: Z51.11 Encounter for antineoplastic chemotherapy (principal); C34.11 Malignant neoplasm of upper lobe, right bronchus or lung; J44.9 Chronic obstructive pulmonary disease, unspecified; K21.9 Gastro-esophageal reflux disease without esophagitis; H35.30 Unspecified macular degeneration; Z99.81 Dependence on supplemental oxygen; Z87.891 Personal history of nicotine dependence; E87.6 Hypokalemia; D70.2 Other drug-induced agranulocytosis; R21 Rash and other nonspecific skin eruption
CPT/HCPCS: 36415; 36591; 71270; 74178; 82728; 83540; 83550; 83735; 84439; 84443; 84480; 85025; 85027; 96365; 96366; 96372; 96375; 96411; 96413; 96417; G0463; J1100; J1642; J2469; J3420; J3480; J7030; J7040; J7050; J9045; J9271; J9305; Q9967; 82040; 82247; 82310; 82374; 82435; 82565; 82947; 84075; 84132; 84155; 84295; 84450; 84460; 84520; 99203; 99212

== ENCOUNTER 2018-11-22 11:14 | Outpatient (RCR) | payer MEDICARE ==
[2018-08-29 14:35] VITALS: BP 145/72
[2018-08-31 14:00] LABS: PLATELET COUNT, AUTOMATED 43 K/uL (150-450)
--- NOTE | 2018-09-05 14:58 | ONCOLOGY FOLLOW UP NOTE ---
EVENT DATE: August 29, 2018 REASON FOR FOLLOWUP Stage IV poorly differentiated lung carcinoma. CHIEF COMPLAINT Patient feels well today. INTERIM HISTORY Ms. Smith returns to clinic for a followup visit today. She is accompanied by her daughter. She reports that for the most part, things have continued to go pretty well with palliative carboplatin, pemetrexed, and pembrolizumab. She reports no fever. She does remain short of breath with exertion, but this has improved somewhat, as has her cough. Her appetite remains fair. Her weight has been stable. She has had no particular problems with bowel or bladder habits. She continues to be independent in activities of daily living. She is pretty happy about how things are going, and she is here to discuss the results of her recent followup CT scan. REVIEW OF SYSTEMS Otherwise negative, and all systems are reviewed. PAST MEDICAL HISTORY 1. COPD. 2. History of smoking, patient quit in 2011. 3. Gastroesophageal reflux disease. 4. Macular degeneration. CURRENT MEDICATIONS 1. Citalopram. 2. Oxybutynin. 3. Hydrochlorothiazide. 4. Omeprazole. ALLERGIES PENICILLIN. SOCIAL HISTORY The patient is currently a nonsmoker, but does have a history of heavy smoking. She quit in 2011. There is no history of alcohol abuse or illicit drug use. FAMILY HISTORY There is a history of heart disease and hypertension as well as Alzheimer disease. There are no known cancers in the family. VITAL SIGNS Temperature 97.2, blood pressure 145/72, heart rate is 69, respirations 16, oxygen saturation is 90% on 3L. Weight is 67.7 kg. PHYSICAL EXAMINATION GENERAL: Patient is alert and oriented times three, in no apparent distress, sitting in the infusion chair. She is interactive and quite pleasant. She is in good spirits. She is wearing oxygen by nasal cannula. HEENT: Anicteric sclerae. NEUROLOGIC: Grossly nonfocal, and her gait is normal. EXTREMITIES: No edema, clubbing, or cyanosis. SKIN: No concerning rash or lesion. LABORATORY STUDIES Reviewed per the [facility] record. IMAGING CT scan of the chest, abdomen, and pelvis performed on August 10 reveals a large mass in the right upper lobe that has partially decreased in size. There is mass effect on the superior vena cava. Spiculated left upper lobe nodules appear relatively unchanged. A 6 x 9 mm left adrenal nodule appears unchanged. ASSESSMENT AND PLAN High-grade lung carcinoma. I had a good visit with the patient and her daughter today. Symptomatically, she continues to do pretty well, and her tolerance of palliative systemic therapy to date has been pretty remarkable. Overall, her quality of life has improved. She does have expected side effects from chemotherapy, to include fatigue. This has been manageable, however. We spent time today reviewing her CT scan results. She has had a reduction in size in the primary tumor, and other findings are relatively stable. As discussed, the plan will be for her to continue with palliative carboplatin, pemetrexed, and pembrolizumab for a total of six cycles and to have imaging thereafter. If there is ongoing evidence of response, we will likely move to pemetrexed and pembrolizumab maintenance therapy. She has no signs or symptoms to suggest superior vena cava syndrome, but we did discuss the narrowing of the superior vena cava and that she needs to watch for swelling of the bilateral upper extremities and face as well as unexplained headache. We will plan for the patient to continue with followup for cycle visits, and I will plan to see her back in my [facility] clinic in the next month. DUTCH
[2018-09-07 10:50] VITALS: BP 157/70
[2018-09-07] MEDS: LIDOCAINE/SOD BICARB 8.4% SYR ID PRN (11:00)
[2018-09-07] MEDS: NS(*) 0.9% 500 ML BAG 500 ML IV PRN (11:00)
[2018-09-07] MEDS: PALONOSETRON 0.25 MG/5 ML VIAL IVP PRN (11:36)
[2018-09-07] MEDS: HEPARIN FLSH (PORT) 500 UN/5ML IVP PRN (12:01)
[2018-09-07] MEDS: CYANOCOBALAMIN 1000MCG/ML VIAL IM ONLY PRN (12:01)
[2018-09-07 12:52] VITALS: BP 157/70
--- NOTE | 2018-09-08 17:36 | ONCOLOGY FOLLOW UP NOTE ---
EVENT DATE: September 07, 2018 CHIEF COMPLAINT Presents for cycle #5 of carboplatin, pemetrexed, and pembrolizumab. HISTORY OF PRESENT ILLNESS Patient is a 72-year-old female who was seen today for consideration of cycle #5 of her treatment. She is gratefully tolerating this well. She does become neutropenic and thrombocytopenic one to two weeks after treatment, but CBC has rebounded today. She denies any evidence of infection or excessive bruising or bleeding. She does have rhinorrhea which has been annoying for her. She continues on oxygen 3L per nasal cannula. Otherwise, she feels well. Cough is quiescent. She received a flu vaccine on 08/29/18. CT of the chest, abdomen, and pelvis on 08/10/18 showed the right upper lobe mass partially decreased in size. There was mass effect on the superior vena cava. The spiculated left upper lobe nodules appear relatively unchanged, as well as a 6 x 9 mm left adrenal nodule. ONCOLOGY HISTORY The patient developed significant cough in April 2018. She has a history of moderate COPD and chronic hypoxemia, requiring supplemental oxygen for the past few years. CT of the chest showed a right upper lobe mass. Bronchoscopy and EBUS on 05/18/18 revealed a poorly differentiated non-small cell carcinoma with a subcarinal lymph node and right paratracheal lymph node, as well as endobronchial biopsy of the right upper lobe mass. PET/CT on 05/28/18 revealed a dense, hypermetabolic right upper lobe pulmonary mass confluent with the superior right hilum and extending toward the subcarinal space, but without discrete/separate adenopathy. There were several irregular left upper lobe pulmonary nodules, the largest hypermetabolic, but all three consistent with metastatic disease. Patient began palliative treatment with carboplatin, pemetrexed, and pembrolizumab on 06/14/18. PAST MEDICAL HISTORY 1. COPD. 2. History of smoking, patient quit in 2011. 3. Gastroesophageal reflux disease. 4. Macular degeneration, right eye. 5. Non-small cell lung cancer, April 2018. SOCIAL HISTORY The patient is . She has four grown children and lives with her daughter here in [place]. She has a history of heavy smoking, but quit in 2011. There is no history of alcohol or illicit drug use. FAMILY HISTORY There is history of heart disease and hypertension as well as Alzheimer disease. There are no known cancers in the family. MEDICATIONS 1. Citalopram. 2. Oxybutynin. 3. Omeprazole. 4. Potassium 20 mEq daily. 5. Oxycodone/acetaminophen 5/325 mg q.4 hours p.r.n. pain. 6. Advair 25/50 Diskus. ALLERGIES PENICILLIN. REVIEW OF SYSTEMS A 12-point review of systems is performed and is negative except as stated above. PHYSICAL EXAMINATION VITAL SIGNS: Weight 67.6 kg. BP 157/70, P 64, R 16, temp 97.8, O2 sat 94% on 3L of oxygen per nasal cannula. HEAD: Normocephalic, atraumatic. EYES: Sclerae anicteric. MOUTH: Moist mucous membranes with postnasal drip visible in posterior pharynx. NECK: No palpable adenopathy. LUNGS: Diminished throughout. CARDIOVASCULAR: Heart rate regular, 64 per minute, without murmur, S3, or S4. ABDOMEN: Soft, nontender, with active bowel sounds. No organomegaly. EXTREMITIES: No edema. NEUROLOGIC: Nonfocal. LABORATORY CBC today reveals a WBC of 4.9, ANC of 3.6, hemoglobin 9.2, hematocrit 27.5, platelets 169,000. CMP is completely within normal limits. IMPRESSION AND PLAN The patient is a 72-year-old female with metastatic, stage IV, poorly differentiated lung cancer. Continues palliative treatment with carboplatin, pemetrexed, and pembrolizumab. 1. Lung cancer. Cycle #5 of carboplatin, pemetrexed, and pembrolizumab. She has tolerated this very well despite neutropenia noted after each cycle. However, she has not developed any intercurrent infections. 2. Anemia. Hemoglobin remains stable, but low at 9.2. Previous iron studies done on 07/06/18 showed them to all be within normal limits. Will continue to monitor trend, but for now she has been very stable. 3. Thrombocytopenia. Platelet count after cycle #4 was 43,000. Today, it has improved to 169,000. She denies excessive bruising or bleeding. 4. Rhinorrhea. Clear nasal discharge. I recommended Flonase one to two sprays each nostril daily and encouraged her to take this for at least two weeks. 5. B12 today. 6. Thyroid function tests on 10/19/18 are within normal limits. 7. Follow up for lab on 09/14/18 and 09/19/18. 8. Follow up on 09/28/18 for cycle #[address] Murcia is planning to transition her to maintenance pemetrexed and pembrolizumab after six cycles. She will see him on 10/10/18. MTDD
[2018-09-14 13:16] VITALS: BP 126/57
[2018-09-14 13:33] LABS: PLATELET COUNT, AUTOMATED 186 K/uL (150-450)
[2018-09-25 15:13] VITALS: BP 141/65
[2018-09-25 15:31] LABS: PLATELET COUNT, AUTOMATED 89 K/uL (150-450)
[2018-09-28 10:50] VITALS: BP 126/98
[2018-09-28] MEDS: LIDOCAINE/SOD BICARB 8.4% SYR ID PRN (11:26)
[2018-09-28] MEDS: NS(*) 0.9% 500 ML BAG 500 ML IV PRN (11:27)
[2018-09-28] MEDS: HEPARIN FLSH (PORT) 500 UN/5ML IVP PRN ×2 (11:28→14:52)
[2018-09-28] MEDS: PALONOSETRON 0.25 MG/5 ML VIAL IVP PRN (12:05)
[2018-09-28 14:53] VITALS: BP 126/58
[2018-10-05 11:15] VITALS: BP 140/58
[2018-10-05 12:10] LABS: PLATELET COUNT, AUTOMATED 160 K/uL (150-450)
[2018-10-10 15:34] VITALS: BP 136/69
--- NOTE | 2018-10-11 02:02 | ONCOLOGY FOLLOW UP NOTE ---
EVENT DATE: October 10, 2018 REASON FOR FOLLOWUP Stage IV poorly differentiated lung carcinoma. CHIEF COMPLAINT Fatigue, shortness of breath. INTERIM HISTORY Ms. Smith returns to clinic for a followup visit today. She is accompanied by her daughter . She reports that she is feeling fine today, but that the first week of her sixth cycle of chemotherapy was rougher than she had anticipated. The prior five cycles had been quite reasonable, but her sixth was more problematic, with fatigue, malaise, and nausea. She reports no fever. Her appetite has improved again. She does have an occasional modestly productive cough without hemoptysis. She has had no changes in her bowel or bladder habits. In general, her energy level was a bit less during the first week of her sixth cycle, but it is again improving. REVIEW OF SYSTEMS Otherwise negative on all systems reviewed. PAST MEDICAL HISTORY 1. COPD. 2. History of smoking, patient quit in 2011. 3. Gastroesophageal reflux disease. 4. Macular degeneration. CURRENT MEDICATIONS 1. Triamcinolone cream. 2. Cheratussin AC cough syrup. 3. Tessalon Perles. 4. Advair Diskus. 5. Celexa. 6. Prilosec. 7. Oxybutynin. ALLERGIES PENICILLIN. SOCIAL HISTORY The patient is currently a nonsmoker, but does have a history of heavy smoking. She quit in 2011. There is no history of alcohol abuse or illicit drug use. FAMILY HISTORY There is a history of heart disease and hypertension as well as Alzheimer disease. There are no known cancers in the family. PHYSICAL EXAMINATION VITAL SIGNS: Temperature is 97.4, blood pressure 136/69, heart rate 78, respirations 16, oxygen saturation 91% on room air. Weight is 67.7 kg. GENERAL: Patient is alert and oriented x3, in no apparent distress, sitting in the exam room chair. She is quite pleasant and interactive, in good spirits. HEENT: Anicteric sclerae. No significant oropharyngeal lesions. She is wearing oxygen by nasal cannula. NEUROLOGIC: Grossly nonfocal. Her gait is normal. EXTREMITIES: No edema, clubbing, or cyanosis. There is no erythema or tenderness to palpation of the extremities. LABORATORY STUDIES Reviewed per the [facility] record. IMAGING None today. ASSESSMENT AND PLAN Stage IV high-grade lung carcinoma. I had a good visit with Margarita and her daughter today. Symptomatically, she continues to do well in general. The sixth cycle of carboplatin, pemetrexed, and pembrolizumab was harder than her first five. She has again recovered. We spent time discussing that this is a good time to consider transitioning to maintenance therapy with pemetrexed and pembrolizumab. I have recommended that she go for repeat imaging before we do so, however. She would prefer to stay in [place] for imaging, and this is absolutely fine. We will order a CT scan of the chest, abdomen, and pelvis to be done in the next week or so. We will try to keep her on schedule with chemotherapy, as she does not have a preference to change her schedule during the holiday season. We will have her follow up here for her next cycle visit with Debbie Patrick, Nurse Practitioner. DUTCH
[2018-10-12 13:16] VITALS: BP 137/69
[2018-10-12] MEDS: LIDOCAINE/SOD BICARB 8.4% SYR ID PRN (13:27)
[2018-10-12 14:28] LABS: PLATELET COUNT, AUTOMATED 59 K/uL (150-450)
[2018-10-12] MEDS: HEPARIN FLSH (PORT) 500 UN/5ML IVP PRN (14:55)
--- NOTE | 2018-10-12 15:53 | RADIOLOGY IMAGING REPORT ---
FACILITY: [facility] [place] PATIENT NAME: Margarita Smith : 1945 MR: [id number] V: [id number] EXAM DATE: ORDERING PHYSICIAN: MIK HSIEH TECHNOLOGIST: Location: Patient: Margarita Smith : 1945 Visit/Account:[id number] Date of Sevice: 10/12/2018 CHEST/AB/PELV W/WO CONTRAST HISTORY: Lung cancer ADDITIONAL HISTORY: None. TECHNIQUE: Pre and post administration of IV contrast axial images acquired through the chest abdome n and pelvis during the portal venous phase. Coronal and sagittal reformatting was also performed.Do se Lowering Technique One of the following dose optimization techniques was utilized in the performance of this exam: Autom ated exposure control; adjustment of the mA and/or kV according to the patient's size; or use of an i terative reconstruction technique. Specific details can be referenced in the facility's radiology C T exam operational policy. CONTRAST: 75 mL Isovue-[id number] COMPARISON: August 10, 2018 FINDINGS: CHEST: Lungs/Pleura: Previously noted spiculated mass medial aspect of the right upper lobe surrounding and occluding the right upper lobe bronchovascular bundle appears slightly decreased in size now measuri ng 7.2 x 4.5 x 5.9 cm. This mass also surrounds the right main bronchus similar to the prior study M ass effect on the superior vena cava persists although appears slightly less prominent. Spiculated n odules in the left upper lobe appear relatively unchanged. There is centrilobular emphysema througho ut the lungs. Mediastinum/lymph nodes: Please see above description Heart/vessels: There is an implanted right-sided port distal tip in superior vena cava. There are c oronary artery calcifications Bones/soft tissues: Vertebroplasty changes at T11 again seen with the paravertebral vertebroplasty c ement ABDOMEN AND PELVIS: Hepatobiliary: Postsurgical changes from a cholecystectomy Spleen: Negative. Pancreas: Negative. Adrenals: 6 x 9 mm left adrenal nodule remains stable. The right adrenal gland is unremarkable Kidneys ureters and bladder : Left renal cyst appears unchanged. Bladder is mostly decompressed not ideally evaluated Genitalia: Hysterectomy GI: There is a small hiatal hernia Vessels/spaces/nodes: Extensive atherosclerotic calcification seen throughout the abdominal aorta an d branch vessels. The amount of mural thrombus in the infrarenal abdominal aorta appears to be incre ased . Bones/soft tissues: No aggressive appearing bone lesions are seen . A small ventral hernia just in ferior to the umbilicus containing fat appears relatively unchanged Additional findings: None pertinent. IMPRESSION: The previously noted spiculated mass medial aspect right upper lobe is slightly decreased in size as described above Specific masses in the left upper lobe relatively unchanged and still concerning for metastases 6 x 9 mm left adrenal nodule remains stable Extensive atherosclerotic calcifications. The abdominal aorta and branch vessels. The amount of mur al thrombus in the infrarenal abdominal aorta appears to be increased Additional chronic findings as described Report Dictated By: Susanna Decker MD at 10/12/2018 3:20 PM Report E-Signed By: Susanna Decker MD at 10/12/2018 3:48 PM WSN:[id number]
[2018-10-16 14:54] VITALS: BP 131/44
[2018-10-16 15:22] LABS: PLATELET COUNT, AUTOMATED 109 K/uL (150-450)
[2018-10-25] MEDS: NS(*) 0.9% 500 ML BAG 500 ML IV PRN (08:28)
[2018-10-25] MEDS: LIDOCAINE/SOD BICARB 8.4% SYR ID PRN (08:28)
[2018-10-25] MEDS: HEPARIN FLSH (PORT) 500 UN/5ML IVP PRN (08:29)
[2018-10-25 09:00] VITALS: BP 145/80
[2018-10-25] MEDS: CYANOCOBALAMIN 1000MCG/ML VIAL IM ONLY PRN (09:12)
[2018-10-25] MEDS: PALONOSETRON 0.25 MG/5 ML VIAL IVP PRN (09:12)
[2018-11-01 15:15] VITALS: BP 123/58
[2018-11-01 15:28] LABS: PLATELET COUNT, AUTOMATED 147 K/uL (150-450)
[2018-11-08 15:54] LABS: PLATELET COUNT, AUTOMATED 213 K/uL (150-450)
[2018-11-08 15:59] VITALS: BP 142/70
[2018-11-13 10:24] VITALS: BP 129/53
[2018-11-15 08:18] VITALS: BP 144/60
[2018-11-15 08:41] LABS: PLATELET COUNT, AUTOMATED 276 K/uL (150-450)
[2018-11-15] MEDS: LIDOCAINE/SOD BICARB 8.4% SYR ID PRN (09:40)
[2018-11-15] MEDS: PALONOSETRON 0.25 MG/5 ML VIAL IVP PRN (09:40)
[2018-11-15] MEDS: NS(*) 0.9% 500 ML BAG 500 ML IV PRN (09:40)
[2018-11-15] MEDS: HEPARIN FLSH (PORT) 500 UN/5ML IVP PRN (10:49)
[2018-11-15 11:20] VITALS: BP 122/49
--- NOTE | 2018-11-15 14:25 | NUR ---
Pt completed HADS initial. Pt scored: A-0, D-1. Very good, no concerns.
--- NOTE | 2018-11-17 18:03 | ONCOLOGY FOLLOW UP NOTE ---
EVENT DATE: November 15, 2018 CHIEF COMPLAINT Followup for non-small cell lung cancer. HISTORY OF PRESENT ILLNESS Patient is a 73-year-old female who was seen today for consideration of cycle #2 of maintenance pemetrexed and pembrolizumab. She is tolerating this fairly well, although has noted significant fatigue. She has chronic shortness of breath. She has noted some cough productive of clear to white phlegm. She uses Tessalon Perles with some effect, but daughter reports that coughing is "terrible" at times. We spent some time reviewing her most recent CT of the chest, abdomen, and pelvis, which showed some overall improvement with stability. Fatigue is her biggest issue. ONCOLOGY HISTORY The patient developed significant cough in April 2018. She has a history of moderate COPD and chronic hypoxemia, requiring supplemental oxygen for the past few years. CT of the chest showed a right upper lobe mass. Bronchoscopy and EBUS on 05/18/18 revealed a poorly differentiated non-small cell carcinoma with a subcarinal lymph node and right paratracheal lymph node, as well as endobronchial biopsy of the right upper lobe mass. PET/CT on 05/28/18 revealed a dense, hypermetabolic right upper lobe pulmonary mass confluent with the superior right hilum and extending toward the subcarinal space, but without discrete/separate adenopathy. There were several irregular left upper lobe pulmonary nodules, the largest hypermetabolic, but all three consistent with metastatic disease. Patient began palliative treatment with carboplatin, pemetrexed, and pembrolizumab on 06/14/18. Completed six cycles of carboplatin, pemetrexed, and pembrolizumab from 06/14/18 through 09/28/18. Began maintenance pemetrexed and pembrolizumab on 10/25/18. PAST MEDICAL HISTORY 1. COPD. 2. History of smoking, patient quit in 2011. 3. Gastroesophageal reflux disease. 4. Macular degeneration, right eye. 5. Non-small cell lung cancer, April 2018. SOCIAL HISTORY The patient is . She has four grown children and lives with her daughter here in [place]. She has a history of heavy smoking, but quit in 2011. There is no history of alcohol or illicit drug use. FAMILY HISTORY There is history of heart disease and hypertension as well as Alzheimer disease. There are no known cancers in the family. MEDICATIONS 1. Citalopram. 2. Oxybutynin. 3. Omeprazole. 4. Potassium 20 mEq daily. 5. Oxycodone/acetaminophen 5/325 mg q.4 hours p.r.n. pain. 6. Advair 25/50 Diskus. ALLERGIES PENICILLIN. REVIEW OF SYSTEMS A 12-point review of systems is performed and is negative except as stated above. PHYSICAL EXAMINATION VITAL SIGNS: Weight 67.8 kg. BP 144/60, P 68, R 16, temp 98, O2 sat 98% on 3L of nasal cannula. GENERAL: Patient is a well-developed, but fatigued-appearing female in no acute distress. HEAD: Normocephalic, atraumatic. EYES: Sclerae anicteric. MOUTH: Slightly dry mucous membranes. No lesions. NECK: Supple. No palpable adenopathy. LUNGS: Diminished bilaterally, but clear. CARDIOVASCULAR: Heart rate regular, 68 per minute, without murmur, S3, or S4. EXTREMITIES: No edema. NEUROLOGIC: Nonfocal. LABORATORY CBC today reveals a WBC of 5.9, hemoglobin 9.3, hematocrit 28.5, platelets 276,000. CMP is within normal limits except for a slightly elevated alkaline phosphatase of 138. Iron studies on 11/13/18 were within normal limits. IMPRESSION AND PLAN The patient is a 73-year-old female with stage IV metastatic, poorly differentiated lung cancer. She completed six cycles of carboplatin, pemetrexed, and pembrolizumab from 06/14/18 through 09/28/18. She began maintenance pemetrexed and pembrolizumab on 10/25/18. 1. Lung cancer. Patient presents for cycle #2 of maintenance pemetrexed and pembrolizumab. We spent some time discussing her treatment as well as her fatigue. Her hemoglobin has been in the 8 to 9 g range for many months. As she is so fatigued, we discussed a 20% dose reduction of the pemetrexed. She would like to consider increasing this back to 100% dosing if her hemoglobin improves. 2. Anemia. As above, hemoglobin has been in the low 8 to 9 g range with significant fatigue. Iron studies on 11/13/18 showed no evidence of iron deficiency. Pemetrexed will be decreased by 20%. 3. Cough. Patient has a significant cough, basically nonproductive. Her daughter reports that it is sometimes "terrible." Tessalon Perles have been fairly effective. I instructed her that she could consider using Percocet for severe cough. 4. Response. CT of the chest, abdomen, and pelvis on 10/12/18 showed the right upper lobe spiculated mass was decreased in size. She did have central lobar emphysema. The left adrenal nodule was described as stable. Will continue maintenance pemetrexed and pembrolizumab. 5. Labs 11/22/18 and 11/27/18. 6. Follow up on 12/04/18 for cycle #3 of treatment. She will see Dr. Murcia on 12/12/18. MTDD
[~2018-11-22] VITALS: Ht 151.1 cm; Wt 67.8 kg
[~2018-11-22 11:14] MED LIST changes: -CYANOCOBALAMIN 1000MCG/ML VIAL IM ONLY ONE; -CYANOCOBALAMIN 1000MCG/ML VIAL IM ONLY PRN; +DEXAMETHASONE SOD PHOS 10MG/ML IVP PRN; +INFLUENZA VIRUS VAC 0.5ML SYR IM ONLY ONE; +IOPAMIDOL 76% 50 ML INFUS BTL 100 ML ONE; -IOPAMIDOL 76% 75 ML INFUS BTL 75 ML ONE; -KCL (*) 20 MEQ/100 ML PREMIX 100 ML IVPB ONE; -KCL 2 MEQ/ML 20 MEQ/10 ML VIAL 40 MEQ in NS(*) 0.9% 1000 ML BAG 1,000 ML IV ONE; -KCL/NS* 20 MEQ/1000 ML PREMIX 1,000 ML IV ONE; +PEMBROLIZUMAB 100 MG/4 ML SDV 200 MG in NS(*) 0.9% 50 ML BAG 50 ML IVPB ONE; +[UNRECOGNIZED DRUG - OTHER] IVPB ONE
[2018-11-22 11:29] VITALS: BP 142/73
[2018-11-22 11:31] LABS: PLATELET COUNT, AUTOMATED 151 K/uL (150-450)
== END 2018-11-27 ==
LOC: SPU 11:14
PROVIDERS: ATTEND Internal Medicine Medical Oncology
DX: Z51.11 Encounter for antineoplastic chemotherapy (principal); C34.11 Malignant neoplasm of upper lobe, right bronchus or lung; Z23 Encounter for immunization; J44.9 Chronic obstructive pulmonary disease, unspecified; H21.23 Degeneration of iris (pigmentary); D64.9 Anemia, unspecified; K21.9 Gastro-esophageal reflux disease without esophagitis; D69.6 Thrombocytopenia, unspecified; J34.89 Other specified disorders of nose and nasal sinuses; Z87.891 Personal history of nicotine dependence; Z99.81 Dependence on supplemental oxygen; R53.83 Other fatigue; R05 Cough; R06.02 Shortness of breath
CPT/HCPCS: 36415; 71270; 74178; 82728; 83540; 83550; 85025; 85027; 90471; 96372; 96375; 96411; 96413; 96417; G0463; J1100; J1642; J2469; J3420; J7040; J7050; J9045; J9271; J9305; Q2037; Q9967; 82040; 82247; 82310; 82374; 82435; 82565; 82947; 84075; 84132; 84155; 84295; 84450; 84460; 84520; 90674; 99212

== ENCOUNTER 2019-02-04 06:39 | Emergency (ER) | payer MEDICARE ==
[~2019-02-04 06:39] MED LIST changes: -ALTEPLASE RECOMB 2 MG VIAL IVP PRN; -CARBOPLATIN IVPB ONE; +DEX4 PO; -DEXAMETHASONE SOD PHOS 10MG/ML IVP ONE; -DEXAMETHASONE SOD PHOS 10MG/ML IVP PRN; -DEXTROSE 5%(*) 100 ML BAG 100 ML IVPB PRN; -INFLUENZA VIRUS VAC 0.5ML SYR IM ONLY ONE; -IOPAMIDOL 76% 50 ML INFUS BTL 100 ML ONE; -NS 0.9% IVPB ONE; -NS(*) 0.9% 100 ML BAG 100 ML IVPB PRN; -PEMBROLIZUMAB 100 MG/4 ML SDV 200 MG in NS(*) 0.9% 50 ML BAG 50 ML IV ONE; -PEMBROLIZUMAB 100 MG/4 ML SDV 200 MG in NS(*) 0.9% 50 ML BAG 50 ML IVPB ONE; -PEMETREXED DISOD IVPB ONE; -WATER FOR INJ,STERILE 20 ML IVP PRN; -[UNRECOGNIZED DRUG - OTHER] IVPB ONE; -[UNRECOGNIZED DRUG - OTHER] IVPB ONE
[2019-02-04 06:42] VITALS: BP 129/64
--- NOTE | 2019-02-04 07:12 | ER Report ---
History and Physical Time Seen By MD: 07:06 Hx. of Stated Complaint: PATIENT STATES SHE STARTED HAVING SPAMS IN HER LOWER BACK SINCE LAST NIGHT AT 2200. TOOK TYLENOL. HPI/ROS CHIEF COMPLAINT: Back pain HISTORY OF PRESENT ILLNESS: Patient is a 73-year-old female with known history of stage IV lung cancer who states around 10 PM last night she began having spasms in her lower back. She states the pain is in her lumbar region and in the midline; she denies any trauma. She denies fevers or chills. She denies any chest pain or shortness of breath. She denies abdominal pain. Patient denies any saddle anesthesia she denies any retention or incontinence of urine or stool. Patient is on chronic O2 at 3 L nasal cannula. REVIEW OF SYSTEMS: Constitutional: No fever, no chills. Cardiovascular: No chest pain, no palpitations. Respiratory: No cough, no shortness of breath. On chronic oxygen. Gastrointestinal: No abdominal pain, no vomiting. Genitourinary: No hematuria. Musculoskeletal: Lumbar back pain Skin: No rashes. Neurological: No headache. Allergies: Coded Allergies: Penicillins (Verified Allergy, Intermediate, 02/04/19) Home Meds Active Scripts Dexamethasone 4 Mg Tab (DEXAMETHASONE 4 MG TAB) 4 Mg Tab, 4 MG PO ONCE for Nausea, #40 TAB 0 Refills take 1 BID day before , of and after chemo then 1 tab QDay thereafter repeat Q chemo cycle Prov:KHUSHBOO HERNANDEZ APRN,NUTRITION PARTNER 01/29/19 Docusate Sodium (COLACE) 100 Mg Capsule, 1 CAP PO BID, #30 CAP 0 Refills TAKE WITH A FULL GLASS OF WATER Prov:INEZ CORNELL MD 06/07/18 Oxycodone Hcl/Acet 5/325 Mg (ENDOCET 5-325 TABLET) 1 Each Tablet, 1 TAB PO Q4H PRN for PAIN, #20 TAB 0 Refills Prov:INEZ CORNELL MD 06/07/18 Reported Medications Triamcinolone Acetonide 0.1% Cr 15 Gm Tube (TRIAMCINOLONE ACETONIDE 0.1% CREAM) 15 Gm Cream..g., 15 GM TP PRN for ITCHING, TUBE 06/21/18 Benzonatate 100 Mg Cap (TESSALON PERLE 100 MG CAP) 100 Mg Capsule, 100 MG PO Q8H PRN for COUGH, CAP 8/7/18 Fluticasone/Salmeterol (ADVAIR 250-50 DISKUS) 1 Each Disk.w.dev, 1 EACH IH BID 05/30/18 Citalopram Hydrobromide (CELEXA) 40 Mg Tablet, 40 MG PO QDAY, #5 TAB 09/08/15 Omeprazole Magnesium (PRILOSEC OTC) 20 Mg Tablet.dr, 1 TAB PO BID, TAB 09/08/15 Discontinued Reported Medications Guaifenesin/Codeine Phosphate (CHERATUSSIN AC SYRUP) 118 Ml Liquid, 5 ML PO Q6H PRN for COUGH 06/05/18 Oxybutynin Chloride (OXYBUTYNIN CHLORIDE) 5 Mg Tablet, 5 MG PO QDAY, TAB 09/08/15 Past Medical/Surgical History History of COPD history of stage IV lung cancer on palliative therapy just starting Taxotere approximately 1-2 weeks ago. Hx Smoking: Yes (1 PPD FOR 47 YRS) Hx Substance Use Disorder: No Hx Alcohol Use: No Constitutional Vital Sign - Last 24 Hours 02/04/19 06:42 Temp 98.1 Pulse 78 Resp 24 B/P (MAP) 129/64 Pulse Ox 92 O2 Delivery Nasal Cannula Physical Exam General Appearance: The patient is alert, has no immediate need for airway protection and no current signs of toxicity. On chronic O2 therapy Eyes: Pupils equal and round no injection. Respiratory: Chest is non tender, lungs are clear to auscultation. Cardiac: regular rate and rhythm Gastrointestinal: Abdomen is soft and non tender, no masses, bowel sounds normal. Musculoskeletal: Neck: Neck is supple and non tender. Patient has a midline low back pain without palpable step-offs. Patient is tender in the lower lumbar spine to palpation. Extremities have full range of motion and are non tender. Skin: No rashes or lesions. Medical Decision Making EKG/Imaging Imaging FACILITY: [facility] [place] PATIENT NAME: Margarita Smith : 1945 MR: [id number] V: [id number] EXAM DATE: ORDERING PHYSICIAN: HUI ZEPEDA TECHNOLOGIST: Location: [facility] Patient: Margarita Smith : 1945 Visit/Account:[id number] Date of Sevice: 02/04/2019 Lumbar spine Indication: Low back pain. History of lung cancer. Comparison: None available FINDINGS: 3 views of the lumbar spine were obtained. There are 5 lumbar type vertebral bodies. On the frontal view, there is a subtle levocurvature centered at L3. This may reflect patient positioning. On the lateral views, there is slight retrolisthesis of L5 upon S1 which measures 4 mm. Sagittal alignment is otherwise maintained. No lumbar compression fractures identified. Degenerative disc disease is present at multiple levels most pronounced at L4-5 and L5-S1. There has been prior vertebroplasty performed at T11. Small amount of cement extends anterior to the anterior margin of the vertebral body. There are surgical clips from prior cholecystectomy. Abdominal aorta is atherosclerotic. IMPRESSION: 1. Slight levocurvature centered in the mid lumbar spine. 2. Multilevel degenerative disc disease most pronounced at L4-5 and L5-S1. 3. No evidence of acute compression deformity. Prior vertebroplasty changes are seen at T11. Report Dictated By: Ariel Schneider at 02/04/2019 7:48 AM Report E-Signed By: Ariel Schneider at 02/04/2019 7:53 AM WSN:[id number] ED Course/Re-evaluation ED Course Plan at this time will be x-ray of the lumbar spine. Looking for possible bony metastasis. We'll give her pain medication and Valium. 02/04/2019 8:06:44 am patient improved after ibuprofen and 2 mg of Valium. We'll discharge home with short prescription for Valium and recommend follow-up with her primary care provider. Decision to Disposition Date: Feb 04, 2019 Decision to Disposition Time: 08:06 Depart Departure Latest Vital Signs Vital Signs Date Time Temp Pulse Resp B/P (MAP) Pulse Ox O2 Delivery O2 Flow Rate FiO2 02/04/19 06:42 98.1 78 24 129/64 92 Nasal Cannula Impression: Primary Impression: Back muscle spasm Condition: Improved Disposition: HOME OR SELF-CARE Referrals: AENL ROSALES MD (PCP) 1 Week if symptoms persist Patient Instructions: Acute Low Back Pain (ED) HUI ZEPEDA MD Feb 04, 2019 07:12
[2019-02-04] MEDS ORDERED: IBUPROFEN 200 MG TAB PO ONE (07:15)
[2019-02-04] MEDS ORDERED: DIAZEPAM 2 MG TAB PO ONE (07:15)
--- NOTE | 2019-02-04 07:57 | RADIOLOGY IMAGING REPORT ---
FACILITY: [facility] [place] PATIENT NAME: Margarita Smith : 1945 MR: [id number] V: [id number] EXAM DATE: ORDERING PHYSICIAN: HUI ZEPEDA TECHNOLOGIST: Location: [facility] [place] Patient: Margarita Smith : 1945 Visit/Account:[id number] Date of Sevice: 02/04/2019 Lumbar spine Indication: Low back pain. History of lung cancer. Comparison: None available FINDINGS: 3 views of the lumbar spine were obtained. There are 5 lumbar type vertebral bodies. On the frontal view, there is a subtle levocurvature centered at L3. This may reflect patient positio efrain. On the lateral views, there is slight retrolisthesis of L5 upon S1 which measures 4 mm. Sagitta l alignment is otherwise maintained. No lumbar compression fractures identified. Degenerative disc disease is present at multiple levels m ost pronounced at L4-5 and L5-S1. There has been prior vertebroplasty performed at T11. Small amount of cement extends anterior to the anterior margin of the vertebral body. There are surgical clips from prior cholecystectomy. Abdominal aorta is atherosclerotic. IMPRESSION: 1. Slight levocurvature centered in the mid lumbar spine. 2. Multilevel degenerative disc disease most pronounced at L4-5 and L5-S1. 3. No evidence of acute compression deformity. Prior vertebroplasty changes are seen at T11. Report Dictated By: Ariel Schneider at 02/04/2019 7:48 AM Report E-Signed By: Ariel Schneider at 02/04/2019 7:53 AM WSN:[id number]
[2019-02-04] MEDS ORDERED: DIAZ2TAB72 PO (08:08)
== END 2019-02-04 08:18 | disposition home or self-care (01) ==
LOC: ER 06:59
DX: M62.830 Muscle spasm of back (principal); C34.90 Malignant neoplasm of unspecified part of unspecified bronchus or lung
CPT/HCPCS: 72100; 99283; A9270

== ENCOUNTER 2019-02-26 11:10 | Outpatient (RCR) | payer MEDICARE ==
[2018-12-04 10:58] VITALS: BP 157/65
[2018-12-04] MEDS: LIDOCAINE/SOD BICARB 8.4% SYR ID PRN (11:55)
[2018-12-04] MEDS: PALONOSETRON 0.25 MG/5 ML VIAL IVP PRN (11:55)
[2018-12-04] MEDS: NS(*) 0.9% 500 ML BAG 500 ML IV PRN (11:58)
[2018-12-04] MEDS: HEPARIN FLSH (PORT) 500 UN/5ML IVP PRN (13:15)
[2018-12-04 13:26] VITALS: BP 130/56
--- NOTE | 2018-12-04 17:37 | ONCOLOGY FOLLOW UP NOTE ---
EVENT DATE: December 04, 2018 CHIEF COMPLAINT Followup for non-small cell lung cancer. HISTORY OF PRESENT ILLNESS Patient is a 73-year-old female who was seen today for consideration of cycle #3 of maintenance pemetrexed and pembrolizumab. Pemetrexed has been dose reduced by 20% as she had been significantly fatigued with long-standing anemia. Iron studies showed no evidence of iron deficiency. Overall, she feels she is doing fairly well, although is overwhelmed by her fatigue. She has continued cough productive of foamy, white phlegm. She is currently out of her Advair, but hopes to coal picker another sample of this today. Her cough is significant and "wears me out," and she describes these as coughing "fits." Otherwise, she feels she is doing fairly well and denies any other new complaints. ONCOLOGY HISTORY The patient developed significant cough in April 2018. She has a history of moderate COPD and chronic hypoxemia, requiring supplemental oxygen for the past few years. CT of the chest showed a right upper lobe mass. Bronchoscopy and EBUS on 05/18/18 revealed a poorly differentiated non-small cell carcinoma with a subcarinal lymph node and right paratracheal lymph node, as well as endobronchial biopsy of the right upper lobe mass. PET/CT on 05/28/18 revealed a dense, hypermetabolic right upper lobe pulmonary mass confluent with the superior right hilum and extending toward the subcarinal space, but without discrete/separate adenopathy. There were several irregular left upper lobe pulmonary nodules, the largest hypermetabolic, but all three consistent with metastatic disease. Patient began palliative treatment with carboplatin, pemetrexed, and pembrolizumab on 06/14/18. Completed six cycles of carboplatin, pemetrexed, and pembrolizumab from 06/14/18 through 09/28/18. Began maintenance pemetrexed and pembrolizumab on 10/25/18. PAST MEDICAL HISTORY 1. COPD. 2. History of smoking, patient quit in 2011. 3. Gastroesophageal reflux disease. 4. Macular degeneration, right eye. 5. Non-small cell lung cancer, April 2018. SOCIAL HISTORY The patient is . She has four grown children and lives with her daughter here in [place]. She has a history of heavy smoking, but quit in 2012. There is no history of alcohol or illicit drug use. FAMILY HISTORY There is history of heart disease and hypertension as well as Alzheimer disease. There are no known cancers in the family. MEDICATIONS 1. Citalopram. 2. Oxybutynin. 3. Omeprazole. 4. Potassium 20 mEq daily. 5. Oxycodone/acetaminophen 5/325 mg q.4 hours p.r.n. pain. 6. Advair 25/50 Diskus. ALLERGIES PENICILLIN. REVIEW OF SYSTEMS A 12-point review of systems is performed and is negative except as stated above. PHYSICAL EXAMINATION VITAL SIGNS: Weight 67.9 kg. BP 157/65, P 62, R 18, temp 98.2, O2 sat 97% on 3L. HEAD: Normocephalic, atraumatic. EYES: Sclerae anicteric. MOUTH: Moist mucous membranes. No lesions. NECK: Supple. No palpable adenopathy. LUNGS: Diminished bilaterally, but clear. No wheezing noted. CARDIOVASCULAR: Heart rate regular, 62 per minute, without murmur, S3, or S4. EXTREMITIES: No edema. NEUROLOGIC: Nonfocal. LABORATORY CBC today reveals WBC 9.1, hemoglobin 8.7, hematocrit 27.5, platelets 302,000. CMP is within normal limits. IMPRESSION AND PLAN The patient is a 73-year-old female with stage IV metastatic, poorly differentiated lung cancer. She completed six cycles of carboplatin, pemetrexed, and pembrolizumab from 06/14/18 through 09/28/18. She began maintenance pemetrexed and pembrolizumab on 10/25/18. 1. Lung cancer. Cycle #3 of maintenance pemetrexed and pembrolizumab. The pemetrexed will continue at a 20% dose reduction due to fatigue and ongoing anemia. She feels she is managing this well. 2. Anemia. Hemoglobin is stable, today 8.7. Iron studies in mid October showed no evidence of iron deficiency. She will also receive B12 today. 3. Cough. Significant "coughing fits." Tessalon Perles have been fairly ineffective. She did not want to use Percocet for severe cough. Hydrocodone elixir 7.5/325 mg/15 mL, 240 mL, 5-10 mL q.4-6 hours p.r.n. cough is prescribed. She will try this. 4. Response. CT of the chest, abdomen, and pelvis on 10/12/18 showed the right upper lobe spiculated mass was decreased in size. She did have central lobar emphysema. The left adrenal nodule was described as stable. Will continue maintenance pemetrexed and pembrolizumab. 5. Follow up with Dr. Murcia on 12/12/18 for continued care. [facility]
[2018-12-12 10:58] VITALS: BP 141/59
[2018-12-12 11:18] LABS: PLATELET COUNT, AUTOMATED 159 K/uL (150-450)
--- NOTE | 2018-12-12 14:20 | ONCOLOGY FOLLOW UP NOTE ---
EVENT DATE: December 12, 2018 CHIEF COMPLAINT Followup for non-small cell lung cancer. HISTORY OF PRESENT ILLNESS Patient is a 73-year old female who is seen one week after receiving cycle #3 of maintenance pemetrexed and pembrolizumab. Pemetrexed dose was reduced by 20% as she has had significant fatigue with longstanding anemia. She notes that her fatigue is continuing and she is "always cold". Her cough is somewhat better. She was able to obtain an Advair inhaler, which has helped. She is using hydrocodone elixir for coughing "fits". ONCOLOGY HISTORY The patient developed significant cough in April 2018. She has a history of moderate COPD and chronic hypoxemia, requiring supplemental oxygen for the past few years. CT of the chest showed a right upper lobe mass. Bronchoscopy and EBUS on May 18 revealed a poorly differentiated non-small cell carcinoma with a subcarinal lymph node and right paratracheal lymph node, as well as endobronchial biopsy of the right upper lobe mass. PET/CT on May 28, 2018 revealed a dense, hypermetabolic right upper lobe pulmonary mass confluent with the superior right hilum and extending toward the subcarinal space, but without discrete/separate adenopathy. There were several irregular left upper lobe pulmonary nodules, the largest hypermetabolic, but all three consistent with metastatic disease. Patient began palliative treatment with carboplatin, pemetrexed, and pembrolizumab on June 14, 2018. Completed six cycles of carboplatin, pemetrexed, and pembrolizumab from June 14, 2018 through September 28, 2018. Began maintenance pemetrexed and pembrolizumab on October 25, 2018. PAST MEDICAL HISTORY 1. COPD. 2. History of smoking, patient quit in 2011. 3. Gastroesophageal reflux disease. 4. Macular degeneration, right eye. 5. Non-small cell lung cancer, April 2018. SOCIAL HISTORY The patient is . She has four grown children and lives with her daughter here in [place]. She has a history of heavy smoking, but quit in 2011. There is no history of alcohol or illicit drug use. FAMILY HISTORY There is history of heart disease and hypertension as well as Alzheimer disease. There are no known cancers in the family. MEDICATIONS 1. Citalopram. 2. Oxybutynin. 3. Omeprazole. 4. Potassium 20 mEq daily. 5. Hydrocodone elixir 7.5/325 mg/15 mL 5-10 mL q.4-5 hours p.r.n. cough. 6. Advair 25/50 Diskus. ALLERGIES PENICILLIN. REVIEW OF SYSTEMS A 12-point review of systems is performed and is negative except as stated above. PHYSICAL EXAMINATION VITAL SIGNS: Weight 67.3 kg. BP 141/59, P 70, R 16, temp 98.9, O2 sat 97% on 3L per nasal cannula. GENERAL: Patient is a well-developed, well-nourished female in no acute distress. HEAD: Normocephalic, atraumatic. EYES: Sclerae anicteric. MOUTH: Moist mucous membranes. No lesions. NECK: Supple. No palpable adenopathy. LUNGS: Diminished bilaterally. No wheezing noted. CARDIOVASCULAR: Heart rate regular, 70 per minute, without murmur, S3, or S4. EXTREMITIES: No edema. NEUROLOGIC: Nonfocal. LABORATORY CBC today reveals WBC 2.1, hemoglobin 8.4, hematocrit 26.1, platelets 159,000. CMP is within normal limits except for a slightly elevated AST of 50. IMPRESSION AND PLAN The patient is a 73-year-old female with stage IV metastatic, poorly differentiated lung cancer. She completed six cycles of carboplatin, pemetrexed, and pembrolizumab from June 14, 2018 through September 28, 2018. She began maintenance pemetrexed and pembrolizumab on 10/25/18. 1. Lung cancer. Patient is seen one week after receiving cycle #3 of maintenance pemetrexed and pembrolizumab. Pemetrexed was given at a 20% dose reduction. Dr. Murcia also met with the patient and her daughter today. He discussed the options of continuing treatment dose-reduced pemetrexed and pembrolizumab or changing to pembrolizumab alone. At this point, Rosa Elena feels that she would like to proceed with both pemetrexed and pembrolizumab. We will continue to monitor for toxicity. 2. Anemia. Hemoglobin today has decreased to 8.4. She is significantly fatigued. Iron studies in mid October showed no evidence of iron deficiency. She is receiving B12 with her treatment. For this reason, she will receive one unit of packed cells on December 14, 2018 in hopes of improving her energy and hemoglobin. 3. Cough. Improved on Advair Diskus. She uses hydrocodone sparingly for severe cough. 4. Follow up on December 25, 2018 for cycle #4 of treatment. Pemetrexed will continue at a 20% dose reduction. 5. CT of the chest, abdomen and pelvis one to two weeks after receiving cycle #4 of treatment. 6. Follow up with Dr. Murcia on January 09, 2019 for continued care. MTDD
[2018-12-14 10:01] VITALS: BP 161/70
[2018-12-14 10:24] VITALS: BP 144/77
[2018-12-14] MEDS: NS(*) 0.9% 500 ML BAG 500 ML IV PRN (10:32)
[2018-12-14] MEDS: LIDOCAINE/SOD BICARB 8.4% SYR ID PRN (10:32)
[2018-12-14] MEDS: HEPARIN FLSH (PORT) 500 UN/5ML IVP PRN (10:32)
[2018-12-14 10:42] VITALS: BP 136/66
[2018-12-14 12:48] VITALS: BP 139/69
[2018-12-25 11:31] VITALS: BP 147/74
[2018-12-25] MEDS: PALONOSETRON 0.25 MG/5 ML VIAL IVP PRN (11:57)
[2018-12-25] MEDS: DEXAMETHASONE SOD PHOS 10MG/ML IVP PRN (11:57)
[2018-12-25] MEDS: NS(*) 0.9% 500 ML BAG 500 ML IV PRN (11:58)
[2018-12-25] MEDS: LIDOCAINE/SOD BICARB 8.4% SYR ID PRN (11:58)
[2018-12-25] MEDS: HEPARIN FLSH (PORT) 500 UN/5ML IVP PRN (13:37)
--- NOTE | 2018-12-27 03:27 | ONCOLOGY FOLLOW UP NOTE ---
EVENT DATE: December 25, 2018 CHIEF COMPLAINT Followup for [id number]-onso lung cancer. HISTORY OF PRESENT ILLNESS Patient is a 73-year-old female who is seen today for consideration of cycle #4 of pemetrexed and pembrolizumab. She has tolerated this fairly well, although developed significant fatigue with mild anemia. She received one unit of packed cells on 12/14/18 and has noted slightly less fatigue. She has an intermittent cough, which she feels is aggravated by allergies as well as the wind. This has improved on the Advair Diskus. She uses hydrocodone at night for severe cough. She notes some stress incontinence with this, but otherwise denies any new complaints. ONCOLOGY HISTORY The patient developed significant cough in April 2018. She has a history of moderate COPD and chronic hypoxemia, requiring supplemental oxygen for the past few years. CT of the chest showed a right upper lobe mass. Bronchoscopy and EBUS on May 18, 2018, revealed a poorly differentiated non-small cell carcinoma with a subcarinal lymph node and right paratracheal lymph node, as well as endobronchial biopsy of the right upper lobe mass. PET/CT on May 28, 2018, revealed a dense, hypermetabolic right upper lobe pulmonary mass confluent with the superior right hilum and extending toward the subcarinal space, but without discrete/separate adenopathy. There were several irregular left upper lobe pulmonary nodules, the largest hypermetabolic, but all three consistent with metastatic disease. Patient began palliative treatment with carboplatin, pemetrexed, and pembrolizumab on June 14, 2018. Completed six cycles of carboplatin, pemetrexed, and pembrolizumab from June 14, 2018, through September 28, 2018. Began maintenance pemetrexed and pembrolizumab on October 25, 2018. PAST MEDICAL HISTORY 1. COPD. 2. History of smoking; patient quit in 2011. 3. Gastroesophageal reflux disease. 4. Macular degeneration, right eye. 5. Non-small cell lung cancer, April 2018. SOCIAL HISTORY The patient is . She has four grown children and lives with her daughter here in [place]. She has a history of heavy smoking, but quit in 2011. There is no history of alcohol or illicit drug use. FAMILY HISTORY There is history of heart disease and hypertension as well as Alzheimer disease. There are no known cancers in the family. MEDICATIONS 1. Citalopram. 2. Oxybutynin. 3. Omeprazole. 4. Potassium 20 mEq daily. 5. Hydrocodone elixir 7.5/325 mg/15 mL 5-10 mL q.4-5 hours p.r.n. cough. 6. Advair 25/50 Diskus. ALLERGIES PENICILLIN. REVIEW OF SYSTEMS A 12-point review of systems is performed and is negative except as stated above. PHYSICAL EXAMINATION VITAL SIGNS: Weight 67.2 kg. BP 147/74, P 58, R 18, temp 97.8, O2 sat 100% on 3L per nasal cannula. GENERAL: Patient is a well-developed, well-nourished, slightly fatigued- appearing female in no acute distress. HEAD: Normocephalic, atraumatic. EYES: Sclerae anicteric. MOUTH: Slightly dry mucous membranes. No lesions. NECK: Supple. No palpable adenopathy. LUNGS: Diminished bilaterally. No wheezing or rhonchi noted. CARDIOVASCULAR: Heart rate regular, 58 per minute, without murmur, S3, or S4. EXTREMITIES: No edema. NEUROLOGIC: Nonfocal. LABORATORY CBC today reveals WBC of 8.1, ANC 5.9, hemoglobin 10.2, hematocrit 31.8, platelets 343,000. CMP is within normal limits. Thyroid panel is pending. IMPRESSION AND PLAN The patient is a 73-year-old female with stage IV metastatic, poorly differentiated lung cancer. She completed six cycles of carboplatin, pemetrexed, and pembrolizumab from June 14, 2018, through September 28, 2018. She began maintenance pemetrexed and pembrolizumab on 10/25/18. 1. Lung cancer. Cycle #4 of pemetrexed and pembrolizumab. Pemetrexed will continue at a 20% dose reduction. Dr. Whyte met with the patient and her daughter at last visit and discussed the option of continuing treatment with dose-reduced pemetrexed and pembrolizumab or changing to pembrolizumab alone. She will undergo CT of the chest, abdomen and pelvis in two weeks to assess response to treatment, and further decisions regarding treatment will be made at that time. 2. Anemia. Hemoglobin had decreased to 8.4. Iron studies were within normal limits. She received one unit of packed cells on 12/14/18, and hemoglobin improved to 10.2. She has noted slightly less fatigue. 3. Cough. Chronic, likely affected by allergies and wind. This has improved on Advair Diskus and p.r.n. hydrocodone. 4. Follow up with Dr. Whyte on 01/09/[address] scan for cycle #5 of treatment. MTDD
[2019-01-08 11:12] VITALS: BP 140/66
[2019-01-08 11:42] LABS: PLATELET COUNT, AUTOMATED 192 K/uL (150-450)
[2019-01-08] MEDS: HEPARIN FLSH (PORT) 500 UN/5ML IVP PRN (12:08)
[2019-01-08] MEDS: LIDOCAINE/SOD BICARB 8.4% SYR ID PRN (12:08)
--- NOTE | 2019-01-08 15:19 | RADIOLOGY IMAGING REPORT ---
FACILITY: [facility] PATIENT NAME: Margarita Smith : 1945 MR: [id number] V: [id number] EXAM DATE: ORDERING PHYSICIAN: MIK HSIEH TECHNOLOGIST: Location: [facility] [place] Patient: Margarita Smith : 1945 Visit/Account:[id number] Date of Sevice: 01/08/2019 CT CHEST ABDOMEN PELVIS W & W/O HISTORY: Lung cancer ADDITIONAL HISTORY: None. TECHNIQUE: Pre and post administration of IV contrast axial images acquired through the chest abdome n and pelvis during the portal venous phase. Coronal and sagittal reformatting was also performed.Do se Lowering Technique One of the following dose optimization techniques was utilized in the performance of this exam: Autom ated exposure control; adjustment of the mA and/or kV according to the patient's size; or use of an i terative reconstruction technique. Specific details can be referenced in the facility's radiology C T exam operational policy. CONTRAST: 75 mL Isovue-370 COMPARISON: October 12, 2018 FINDINGS: CHEST: Lungs/Pleura: Previously noted spiculated mass in the medial aspect the right upper lobe surrounding and occluding the right upper lobe bronchovascular bundle and occluding the right upper lobe bronchu s has increased in size and now measures 10.5 x 5.8 x 8.2 cm previously measuring 7.2 x 4.5 x 5.9 cm. This mass also surrounds the right main bronchus to slightly greater extent than on the prior exami nation.. Mass effect on the superior vena cava has increased in the interim. Spiculated nodules in the left upper lobe appear relatively unchanged. There is no evidence of pleur al effusions. Centrilobular emphysema again noted throughout the lungs Mediastinum/lymph nodes: Please see above discussion Heart/vessels: Coronary artery calcifications again noted. Implanted right-sided port again seen wi th distal tip in superior vena cava. As mentioned above the mass effect on the superior vena cava bass s increased in the interim Bones/soft tissues: Vertebroplasty changes at T11 with paravertebral cement again noted. There is a faint sclerotic density seen along the anterior aspect of the T3 vertebral body. ABDOMEN AND PELVIS: Hepatobiliary: There postsurgical changes from a cholecystectomy Spleen: Negative. Pancreas: Negative. Adrenals: Left adrenal nodule appears slightly increased now measuring 15 x 6 mm as opposed to 6 x 9 mm. The right adrenal gland appears unremarkable Kidneys ureters and bladder : Left renal cysts appear unchanged Genitalia: Hysterectomy GI: Small hiatal hernia Vessels/spaces/nodes: Extensive vascular calcifications throughout the abdominal aorta and branch ve ssels. There is extensive mural thrombus in the infrarenal abdominal aorta similar to the prior stud y Bones/soft tissues: There is a periumbilical hernia containing fat. There are spondylotic changes t he lumbar spine Additional findings: None pertinent. IMPRESSION: The large right upper lobe mass has increased in size as described above. The mass effect on the sup erior vena cava has also increased in the interim Spiculated nodule left upper lobe appear relatively unchanged Left adrenal nodule is slightly increased in size. Additional chronic findings as described Report Dictated By: Susanna Decker MD at 01/08/2019 2:47 PM Report E-Signed By: Susanna Decker MD at 01/08/2019 3:14 PM WSN:[id number]
--- NOTE | 2019-01-15 15:32 | ONCOLOGY CHEMO TEACHING ---
EVENT DATE: January 14, 2019 CHIEF COMPLAINT Followup for zqv-gaioc-vcku lung cancer, post recent scans. Here for questions regarding possible disease progression. The patient is seen today for chemotherapy teaching. A total of 60 minutes was spent with Ms. Smith, 100% of which was [id number] counseling. HISTORY OF PRESENT ILLNESS Patient is a 73-year-old female who has now completed four cycles of pemetrexed and pembrolizumab. She has tolerated treatment fairly well, although developed significant fatigue with mild anemia. She did receive one unit of PRBCs on 12/14/18 and since then has noticed slightly less fatigue. She has had an intermittent cough, which she feels is aggravated at times by allergies as well as the wind. This has improved on Advair Diskus. She uses hydrocodone at night for severe cough. She also has had some stress incontinence with this. Today, she tells me she believes that her cough has worsened. 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 She remains on portable oxygen via nasal cannula, 3L. She recently had restaging CT scan done last week on 01/08/19. She tells me that she is aware that there was disease progression noted and was simply nearby in town, and she and her daughter thought they would come by and visit with me and ask some questions. She has questions regarding treatment plan. We were planning on calling patient to come in for a discussion of her recent scans and possible chemo education with Taxotere. ONCOLOGY HISTORY The patient developed significant cough in April 2018. She has a history of moderate COPD and chronic hypoxemia, requiring supplemental oxygen for the past few years. CT of the chest showed a right upper lobe mass. Bronchoscopy and EBUS on May 18, 2018, revealed a poorly differentiated [id number]-avvk carcinoma with a subcarinal lymph node and right paratracheal lymph node, as well as endobronchial biopsy of the right upper lobe mass. PET/CT on May 28, 2018, revealed a dense, hypermetabolic right upper lobe pulmonary mass confluent with the superior right hilum and extending toward the subcarinal space, but without discrete/separate adenopathy. There were several irregular left upper lobe pulmonary nodules, the largest hypermetabolic, but all three consistent with metastatic disease. Patient began palliative treatment with carboplatin, pemetrexed, and pembrolizumab on June 14, 2018. Completed six cycles of carboplatin, pemetrexed, and pembrolizumab from June 14, 2018, through September 28, 2018. Began maintenance pemetrexed and pembrolizumab on October 25, 2018. PAST MEDICAL HISTORY 1. COPD. 2. History of smoking; patient quit in 2011. 3. Gastroesophageal reflux disease. 4. Macular degeneration, right eye. 5. Usu-uqluc-wyrx lung cancer, April 2018. SOCIAL HISTORY The patient is . She has four grown children and lives with her daughter here in [place]. She has a history of heavy smoking, but quit in 2011. There is no history of alcohol or illicit drug use. FAMILY HISTORY There is history of heart disease and hypertension as well as Alzheimer disease. There are no known cancers in the family. MEDICATIONS 1. Citalopram. 2. Oxybutynin. 3. Omeprazole. 4. Potassium 20 mEq daily. 5. Hydrocodone elixir 7.5/325 mg/15 mL 5-10 mL q.4-5 hours p.r.n. cough. 6. Advair 25/50 Diskus. ALLERGIES PENICILLIN. DISCUSSION 1. A total of 60 minutes was spent with Ms. Smith and her daughter, 100% of which was [id number] counseling. At today's chemotherapy teaching session, we discussed her diagnosis as well as the planned chemotherapy regimen and toxicities associated with Taxotere IV every 21 days. Handouts of each drug were provided and reviewed in detail. 2. Side effects and toxicities of chemotherapy agents included, but were not limited to: A. Bone marrow suppression, specifically neutropenia. Ms. Smith is instructed to contact our offices with any signs of infection. CBC will be monitored routinely. We discussed common sense approaches including routine hand washing and avoidance of crowds/sick people if neutropenic. B. GI side effects. Discussed the possibility of nausea, vomiting, diarrhea, and constipation. Ms. Smith will receive IV antiemetics and will be prescribed antiemetics for home use. If Ms. Smith were to have diarrhea, recommended Imodium. If Ms. Smith were to have constipation, recommended Senna-S or MiraLAX routinely. Further interventions will be made based on side effects. C. side effects. Discussed the importance of adequate hydration (minimum 8 cups of fluid per day) and emptying the bladder on a regular basis. IV hydration can be scheduled as needed. D. Mouth sores. Recommended salt water or baking soda gargles as needed. E. Skin toxicity. Discussed that chemotherapy was very drying to the skin and mucous membranes. Recommended routine moisturizing as well as sun protection. F. Neurotoxicity. Discussed symptoms of peripheral neuropathy. Ms. Smith will be monitored of these symptoms and will notify us if progressive. G. Alopecia. We discussed that hair thinning is common, though some people do have alopecia as well on treatment. H. Fatigue. Discussed that this is one of the most common complaints of patients undergoing chemotherapy. I have encouraged Ms. Smith to remain as active as possible, taking frequent rests as needed. I. Infusion reaction. Reviewed IV premedications. Ms. Smith will be monitored closely during infusions. J. Reproductive health: Discussed importance of preventing while on chemotherapy. Discussed control options and fertility preservation, also to abstain from sexual intercourse for two to three days after chemotherapy administration. 3. I have instructed the patient to call our office if Ms. Smith is prescribed any new medications. It is recommended that multiple supplements or herbal medications may not be taken as these may interfere with the action of the chemotherapy. 4. Discussed dietary issues associated with chemotherapy including anorexia and changes in taste. A handout of nutrition information is given. 5. Office contact information ([phone]) is given. I have encouraged the patient to call with any issues regarding treatment. 6. A tour of the infusion room is given. Ms. Smith is given a packet of information including all of the above. Treatment will begin in the next week. 7. Recent imaging on 01/08/19: CT chest, abdomen, and [facility]: The large right upper lobe mass has increased in size. This now measures 10.5 x 5.8 x 8.2 cm, and previously this measured 7.2 x 4.5 x 5.9 cm. The mass effect on the superior vena cava has also increased in the interim. Spiculated nodule left upper lobe appears relatively unchanged. Left adrenal nodule slightly increased in size. Additional chronic findings as described. Left adrenal nodule appears slightly increased, now measuring 15 x 6 mm as opposed to 6 x 9 mm. The right adrenal gland appears unremarkable. This image was compared to 10/12/18 image. 8. Due to her worsening dry cough and the fact that there is slightly increased mass effect on the SVC, I have given the patient a prescription to initiate a prednisone taper. She did take her dexamethasone today in anticipation of treatment tomorrow, and this will be discontinued. She will omit dexamethasone tomorrow and the next day per her previous pemetrexed/pembrolizumab regimen and instead will take this prednisone taper. 9. We reviewed signs and symptoms of when to call our office. 10. I had a long discussion with the patient today and explained that Dr. Murcia is aware of her findings on repeat imaging. We discussed discontinuation of her current treatment with pemetrexed/pembrolizumab versus potentially a trial in [place], [place]. She is aware of all of her options, and at this time she has agreed to proceed with second-line treatment with docetaxel. Plan is for patient to be able to initiate Cycle #1 hopefully early next week. She would like to receive treatment with chemotherapy on Tuesdays and is able to come in on Wednesdays as needed for followup with her physician. I have asked her to keep her followup appointment with Dr. Murcia next week as scheduled. If we do not start chemotherapy next Monday, we should be starting this by next Monday when she is in clinic. DUTCH
[2019-01-23 12:53] VITALS: BP 114/68
[2019-01-29] MEDS: NS(*) 0.9% 500 ML BAG 500 ML IV PRN (11:22)
[2019-01-29] MEDS: HEPARIN FLSH (PORT) 500 UN/5ML IVP PRN (11:22)
[2019-01-29] MEDS: LIDOCAINE/SOD BICARB 8.4% SYR ID PRN (11:22)
[2019-01-29 11:37] LABS: PLATELET COUNT, AUTOMATED 275 K/uL (150-450)
[2019-01-29] MEDS: DEXAMETHASONE SOD PHOS 10MG/ML IVP PRN (12:27)
[2019-01-29 13:17] VITALS: BP 161/76
--- NOTE | 2019-01-29 14:03 | ONCOLOGY FOLLOW UP NOTE ---
EVENT DATE: January 29, 2019 CHIEF COMPLAINT Patient is here for followup on her rma-qeeuu-gauh lung cancer, status post recent imaging. She will be initiating her first cycle with Taxotere today. HISTORY OF PRESENT ILLNESS Patient is a 73-year-old female who has now completed four cycles of pemetrexed and pembrolizumab. She has tolerated treatment fairly well, although developed significant fatigue with mild anemia. She did receive one unit of PRBCs on December 14, 2018 and since then has noticed slightly less fatigue. She has had an intermittent cough, which she feels is aggravated at times by allergies as well as the wind. This has improved on Advair Diskus. She does have a prescription for hydrocodone elixir at night for severe cough, although reports that this does not typically help her cough too well. Mostly, she just notices that this just makes her somewhat drowsy. She has had some stress incontinence with this. 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 She reported significant coughing episodes. She remains on portable oxygen via nasal cannula at 3L. She had re- staging CT scans done on January 08, 2019. She is aware that there is disease progression noted and as such we have decided to discontinue treatment with pemetrexed and pembrolizumab and will be initiating single-agent Taxotere today. Finally, for her worsening cough, we placed her on a Medrol Dosepak, which she has now completed. She reports that this helped her significantly while she was on it but now her cough has become noticeable again. She denies any fevers or any other complaints. ONCOLOGY HISTORY The patient developed significant cough in April 2018. She has a history of moderate COPD and chronic hypoxemia, requiring supplemental oxygen for the past few years. CT of the chest showed a right upper lobe mass. Bronchoscopy and EBUS on May 18, 2018, revealed a poorly differentiated sis-anieh-ujtk carcinoma with a subcarinal lymph node and right paratracheal lymph node, as well as endobronchial biopsy of the right upper lobe mass. PET/CT on May 28, 2018, revealed a dense, hypermetabolic right upper lobe pulmonary mass confluent with the superior right hilum and extending toward the subcarinal space, but without discrete/separate adenopathy. There were several irregular left upper lobe pulmonary nodules, the largest hypermetabolic, but all three consistent with metastatic disease. Patient began palliative treatment with carboplatin, pemetrexed, and pembrolizumab on June 14, 2018. Completed six cycles of carboplatin, pemetrexed, and pembrolizumab from June 14, 2018, through September 28, 2018. Began maintenance pemetrexed and pembrolizumab on October 25, 2018. She received her last cycle with this on December 25, 2018. Patient will be initiating single-agent Taxotere today on January 29, 2019. PAST MEDICAL HISTORY 1. COPD. 2. History of smoking; patient quit in 2011. 3. Gastroesophageal reflux disease. 4. Macular degeneration, right eye. 5. Qea-rtbko-jvja lung cancer, April 2018. SOCIAL HISTORY The patient is . She has four grown children and lives with her daughter here in [place]. She has a history of heavy smoking, but quit in 2011. There is no history of alcohol or illicit drug use. FAMILY HISTORY There is history of heart disease and hypertension as well as Alzheimer disease. There are no known cancers in the family. MEDICATIONS 1. Citalopram. 2. Oxybutynin. 3. Omeprazole. 4. Potassium 20 mEq daily. 5. Hydrocodone elixir 7.5/325 mg/15 mL 5-10 mL q.4-5 hours p.r.n. cough. 6. Advair 25/50 Diskus. ALLERGIES PENICILLIN. REVIEW OF SYSTEMS CONSTITUTIONAL: Patient denies any recent fevers, chills or night sweats. She does have some fatigue and her biggest complaint is ongoing cough. HEENT: She denies any vision changes. No epistaxis. No worsening or new nasal drainage or epistaxis. No mouth sores. LUNGS: She reports ongoing and worsening dry cough. She does not feel this is the normal aggravation from allergies and wind, although her cough does worsen during those times. She continues to use her Advair inhaler as well as her oxygen via nasal cannula. She reports that her cough is so bad that she will develop coughing fits and feels as though the coughing will never stop. She and her daughter report that this is a quality of life issue at this time. Her hydrocodone elixir is not helping as well and she tells me that Lala Quintana have not worked in the past. She denies any hemoptysis. CARDIOVASCULAR: She denies any chest pain. No syncope or presyncope. GI: She denies any abdominal pain, nausea, vomiting, constipation, diarrhea, bright red blood per rectum or melena. No change in appetite. : She does have some stress urinary incontinence with severe cough. No hematuria, dysuria or hematuria. ENDOCRINE: No heat or cold intolerance. She does have some fatigue and some generalized weakness overall. PSYCH: She denies any severe depression, severe anxiety, suicidal or homicidal ideation. MUSCULOSKELETAL: She denies any focal areas of pain. The remainder of a 12-point review of systems is performed today and is otherwise negative. PHYSICAL EXAMINATION VITAL SIGNS: No weight today. Most recent weight was 67.2 kg per chart. Temperature 97.6 degrees Fahrenheit, pulse 72, R 18, blood pressure 161/76, oxygen saturation 94% on 3L O2 nasal cannula. GENERAL: This is a pleasant 73-year old woman who appears well-developed, well- nourished, slightly fatigued but overall is in no acute distress. HEAD: Normocephalic, atraumatic. EYES: Sclerae anicteric. ENT/MOUTH: Slightly dry mucous membranes. No mucositis. NECK: Supple. No lymphadenopathy. No JVD. LUNGS: Diminished breath sounds bilaterally. No wheezes, rales or rhonchi. Respiratory effort is normal. Expiratory phase is slightly prolonged. CARDIOVASCULAR: Regular rate and rhythm. No murmurs. NEURO: Patient is awake, alert and oriented x3. No focal or sensory deficits. PSYCH: Mood and affect are appropriate. EXTREMITIES: No edema. No clubbing or cyanosis. MUSCULOSKELETAL: Gait is stable. LABORATORY CBC today: WBC 15.9, ANC 14.9, hemoglobin 9.6, hematocrit 30.4%, platelets 275,000. Positive left shift, attributable to recent glucocorticosteroid use. CMP today: Largely unremarkable with exception of minimally elevated glucose at 140, again likely related to glucocorticosteroid use. Total bilirubin is somewhat low at 0.1. LFTs are within normal limits to include normal alkaline phosphatase. Electrolytes are within normal limits. IMAGING CT chest abdomen and pelvis with and without contrast on [facility] on January 08, 2019: The large right upper lobe mass has increased in size. This now measures 10.5 x 5.8 x 8.2 cm and previously this measured 7.2 x 4.5 x 5.9 cm. The mass effect on the superior vena cava has also increased in the interim. Spiculated nodule, left upper lobe, appears relatively changed. Left adrenal nodule slightly increased in size. Additional chronic findings as described. Left adrenal nodule appears slightly increased, now measuring 15 x 6 mm as opposed to 6 x 9 mm. The right adrenal gland appears unremarkable. This image was compared to October 12, 2018 image. IMPRESSION AND PLAN This is a pleasant 73-year old woman with stage 4 metastatic, poorly differentiated lung cancer. She completed six cycles of carboplatin, pemetrexed and pembrolizumab from June 14, 2018 through September 28, 2018. She then began maintenance pemetrexed and pembrolizumab on October 25, 2018. She received her last dose on December 25, 2018. She had a recent CT chest, abdomen and pelvis which revealed disease progression, with imaging done on January 08, 2019. We have discussed results and she has since then seen myself as well as Dr. Murcia. Our plan is to proceed with single-agent chemotherapy with Taxotere. She has had a chronic cough which worsened a couple of weeks ago and then improved on a Medrol Dosepak. 1. Stage IV lung cancer. Patient will proceed with Cycle #1 with single-agent Taxotere today. She will receive Neulasta with each cycle. 2. Dexamethasone per Taxotere protocol: Patient took 4 mg tablet this morning. Pre-Med orders in clinic are for 20 mg dexamethasone IV pre-med. We will administer 10 mg IV today and patient will take another 4 mg tablet when she returns home. She has not been taking her dexamethasone per usual, which we normally prescribe as 4 mg tablets, two tablets b.i.d. day before, of and after chemotherapy. I am not going to change this. She will continue with one dexamethasone 4 mg tablet b.i.d. day before, of and after treatment. 3. Cough: Significantly improved while in a Medrol Dosepak. Discussed long- term risks associated with chronic steroid use to include osteopenia or worsening osteoporosis as well as risks for leukocytosis and hyperglycemia. I am going to send in a refill on her dexamethasone today and she will continue to take this as described for chemo prophylaxis, then will take one 4 mg tablet every morning thereafter. We are going to see if a chronic low-dose dexamethasone helps improve her cough. Patient and her daughter both verbalize understanding and we discussed this thoroughly today. I also discussed this with our pharmacist, Sydney, today and she is aware that patient has not been taking oral dexamethasone prior to chemo,as per usual. 4. Patient may continue to use hydrocodone elixir p.r.n. and Tessalon Perles, although reports that this provides minimal relief. 5. We reviewed signs and symptoms of when to call or office, especially due to her respiratory status and we reviewed ER parameters. 6. At our education session, I did discuss with patient that radiotherapy may be indicated based on her recent imaging. She met with Dr. Murcia last week, who also informed patient that this may be possible, after her case is reviewed at [facility]. Discussed her case with Dr. Murcia by phone today. Plan is for patient to proceed with with radiotherapy as her case has been reviewed. 7. I have written orders for referral to Radiation Oncology with Dr. Smith here at [facility]. I discussed this with patient and her daughter at length. I also discussed the procedure for referral to include consultation with Dr. Smith, followed by CT sim and then scheduling of daily radiotherapy. Patient and daughter verbalize understanding and were very pleased about moving forward with radiotherapy. 8. Patient will return to clinic in one week for followup labs and standard followup toxicity check after initiating her first cycle with Taxotere. MTDD
[2019-01-29 14:29] VITALS: BP 167/71
[2019-01-30 13:59] VITALS: BP 139/75
[2019-02-05 10:00] LABS: PLATELET COUNT, AUTOMATED 222 K/uL (150-450)
--- NOTE | 2019-02-05 11:59 | TOBIN CONSULT ---
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 Patient completing initial phase of systemic therapy with referral for consideration of concurrent Taxotere plus external beam radiation therapy to palliate cough. 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 ONCOLOGY HISTORY 1. Diagnosis of poorly differentiated non-small cell carcinoma of the right upper lobe and with positive right peritracheal lymph node and subcarinal lymph node on endoscopic run ultrasound endobronchial biopsy dated May 22, 2018. Ki67 proliferation rate of 10% to 20% at diagnosis. The original tumor size estimated at 6.8 x 9.2 x 8.8 cm with encasement of the right upper lobe bronchus along with mass effect over the superior vena cava. Patient receiving systemic chemotherapy and biologic therapy under the direction of Dr. Murcia with most recent CT scan of the thorax on January 08, 2018, revealing tumor regrowth from maximum site of reduction of 7.2 x 4.5 x 5.9 cm back to a tumor size of 10.5 by 5.8 x 8.2 cm. 2. Referral for consideration of radiation therapy plus concurrent Taxotere. 3. She received six cycles of carboplatin, pemetrexed and pembrolizumab from June 14, 2018 through September 28, 2018. 4. Maintenance pemetrexed and pembrolizumab October 25, 2018 and December 25, 2018. 5. January 2019: Initiate Taxotere with external beam radiotherapy. HISTORY OF PRESENT ILLNESS This is a delightful 72-year old resident of the [facility] who is seen accompanied by her daughter for initial consultation. She was referred to me by Dr. Braxton Murcia for radiotherapy recommendations. She is a reasonable historian. She has a smoking history of 1 to 1-1/2 packs per day most of her life, having stopped smoking in 2011. Patient presented to her primary care provider with a cough, which led to chest x-ray and CT of the thorax. CT of the thorax demonstrated a large right upper lobe mass with radiographic characteristics listed above. She then had a PET CT scan performed in [facility] [address]. There was no significant uptake in the left adrenal gland at that time, which was most likely an adenoma. Patient had an MRI scan of the brain, which was negative. The patient was placed on oxygen at 3L. She received systemic therapy with pemetrexed and pembrolizumab. This initially produced a very good response. However, more recently it appears that the tumor has become somewhat resistant with enlargement of the right perihilar mass and return of the patient's intermittently symptomatic cough. The patient denies any progressive loss. She has not experienced any persistent bone pain. She was in the emergency room last evening with back spasm but that has resolved with ibuprofen and a muscle relaxant agent. The patient denies any hemoptysis. CURRENT MEDICATIONS 1. Colace 100 mg every day. 2. Oxycodone 5/325 one tablet every six hours p.r.n. pain. 3. Tessalon Perles 100 mg every 8 hours p.r.n. 4. Advair Diskus 250/50 one inhalation b.i.d. 5. Celexa 40 mg every day. 6. Prilosec OTC 20 mg p.o. b.i.d. 7. Diazepam 2 mg every eight hours p.r.n. back spasm. ALLERGIES Penicillin. PAST MEDICAL HISTORY 1. Lung carcinoma with history listed above. 2. COPD. 3. History of GERD. 4. History of macular degeneration. PAST SURGICAL HISTORY Prior vertebroplasty in [place]. FAMILY HISTORY Negative for carcinoma. SOCIAL HISTORY , four grown children. She lives with her daughter here in [place]. Smoking 1 to 1-1/2 packs per day, stopped in 2011. REVIEW OF SYSTEMS Patient lives a short distance from the Cancer Center. She is an active 73-year old lady. She is on oxygen at 3L. She does occasionally have GERD symptoms, minor increase in urinary urgency. No dysuria. Denies headaches. PHYSICAL EXAMINATION GENERAL: Niels 73-year old female. Karnofsky Performance Status: 90. VITAL SIGNS: Blood pressure 140/63, pulse 70, respirations 16, O2 sat 93% on 3L. Weight 148. HEENT: Unremarkable. No peripheral lymphadenopathy. LUNGS: Fair air exchange with no rales or wheezes today. HEART: Regular. ABDOMEN: Soft. No gross organomegaly, mass or tenderness. EXTREMITIES: No edema or cyanosis. NEUROLOGICAL: Grossly intact. IMPRESSION This is niels 73-year old lady who was diagnosed in the mid portion of 2018 with locally advanced poorly differentiated non-small cell carcinoma of the right lung. She initially appeared to respond to systemic therapy well but, unfortunately, the tumor appears to be starting to grow back at this juncture by the most recent CT measurements and the patient is, therefore, referred for radiation considerations. At this time, the mass measures 10.5 x 5.8 x 8.2 cm with occlusion of the right upper lobe bronchus. There remains a left adrenal nodule, which we are also following closely. This is slightly larger by measurement at 15 mm x 6 mm as opposed to 9 mm in maximum size previously. We will continue to monitor the adrenal gland post treatment and I would not specifically target the adrenal gland at this time. I spoke with the patient about obtaining a PET CT scan. Due to distance factors, their preference would be to do the majority of radiographic studies here in [place], although they are willing to travel if the information is helpful. I will make a final determination regarding the value of the scan by the end of the day. Tentatively, I will start the radiation therapy course on Monday of next week, proceed to 4000 cGy and re-scan to determine if the treatment is being effective and consider subsequent boost for long-term tumor growth restraint at that juncture. Tentative plan is to deliver 60 Gy in 30 fractions with progressive field reduction technique to maximum therapeutic response. I discussed potential acute and late side effects with patient and her daughter. All questions were answered to her satisfaction today over a 60-minute consultation. Radiographs, pathology and records were reviewed extensively. Thank you for the referral. We will dictate an updated note after he finishes the first stages of the chemotherapy and before he starts the radiation program. [facility]
--- NOTE | 2019-02-05 13:04 | ONCOLOGY FOLLOW UP NOTE ---
EVENT DATE: February 05, 2019 CHIEF COMPLAINT Patient is here for followup on her eee-[id number]-xeqg lung cancer, status post recent imaging. She is one week post initiation with Cycle #1 with Taxotere, given on January 29, 2019. She received Neulasta injection the day after. HISTORY OF PRESENT ILLNESS Patient is a 73-year-old female who has now completed four cycles of pemetrexed and pembrolizumab. She has tolerated treatment fairly well, although developed significant fatigue with mild anemia. She did receive one unit of PRBCs on December 14, 2018 and since then has noticed slightly less fatigue. She has had an intermittent cough, which she feels is aggravated at times by allergies as well as the wind. This has improved on Advair Diskus. She does have a prescription for hydrocodone elixir at night for severe cough, although reports that this does not typically help her cough too well. We did place her on a Medrol Dosepak a few weeks ago, which significantly improved her cough. She remains on portable oxygen via nasal cannula 3L. She had re-staging CT scan on January 08, 2019. There is, indeed, progression and patient is aware of this. Treatment with pemetrexed and pembrolizumab was discontinued and she has now initiated single-agent Taxotere, given on day 1 every 21 days. She receives Neulasta on day 2. She initiated treatment one week ago on February 05, 2019, with Neulasta given on February 06, 2019. Lastly, we also decided to place her on low- dose dexamethasone 4 mg daily to help with her cough as she did notice significant improvement with steroids. The three days around each chemotherapy cycle, she will then take two tablets per instructions for Taxotere. She remains on low-dose dexamethasone today and tells me that her cough has significantly improved. She was able to go out on the weekend and have brunch with her daughter and family. She has only minor coughing spells now. She is feeling quite well. Her only difficulty or noticeable side effect after initiating Taxotere last week was some lower back pain, which she reports became noticeable on Monday at 10:30. This was approximately five days after her first dose of Taxotere. She reports this as lower back pain and lower back spasms and this was not improved after one dose of Tylenol. This became worse and she was then seen in the emergency room yesterday, early Monday morning. X-ray was performed, which was unremarkable. She was started on 2 mg Valium tablets and she reports that she took a couple yesterday and took only one Valium this morning along with Tylenol and her back spasms are much better controlled. Otherwise, she denies any fevers, chills, night sweats or other pain. Her appetite is good. She denies any nausea, vomiting, constipation or diarrhea. Rosa Elena will be seeing Dr. Smith this morning for radiation consultation. ONCOLOGY HISTORY The patient developed significant cough in April 2018. She has a history of moderate COPD and chronic hypoxemia, requiring supplemental oxygen for the past few years. CT of the chest showed a right upper lobe mass. Bronchoscopy and EBUS on May 18, 2018, revealed a poorly differentiated acl-mmxcg-here carcinoma with a subcarinal lymph node and right paratracheal lymph node, as well as endobronchial biopsy of the right upper lobe mass. PET/CT on May 28, 2018, revealed a dense, hypermetabolic right upper lobe pulmonary mass confluent with the superior right hilum and extending toward the subcarinal space, but without discrete/separate adenopathy. There were several irregular left upper lobe pulmonary nodules, the largest hypermetabolic, but all three consistent with metastatic disease. Patient began palliative treatment with carboplatin, pemetrexed, and pembrolizumab on June 14, 2018. Completed six cycles of carboplatin, pemetrexed, and pembrolizumab from June 14, 2018, through September 28, 2018. Began maintenance pemetrexed and pembrolizumab on October 25, 2018. She received her last cycle with this on December 25, 2018. Patient initiated single-agent Taxotere today on January 29, 2019. PAST MEDICAL HISTORY 1. COPD. 2. History of smoking; patient quit in 2011. 3. Gastroesophageal reflux disease. 4. Macular degeneration, right eye. 5. Czq-vysdh-kzsa lung cancer, April 2018. SOCIAL HISTORY The patient is . She has four grown children and lives with her daughter here in [place]. She has a history of heavy smoking, but quit in 2011. There is no history of alcohol or illicit drug use. FAMILY HISTORY There is history of heart disease and hypertension as well as Alzheimer disease. There are no known cancers in the family. MEDICATIONS 1. Citalopram. 2. Oxybutynin. 3. Omeprazole. 4. Potassium 20 mEq daily. 5. Hydrocodone elixir 7.5/325 mg/15 mL 5-10 mL q.4-5 hours p.r.n. cough. 6. Advair 25/50 Diskus. ALLERGIES PENICILLIN. REVIEW OF SYSTEMS CONSTITUTIONAL: Patient denies any recent fevers, chills or night sweats. Her energy level has been stable to improved as she was able to go out to eat with her family over the weekend. HEENT: She denies any vision changes. No epistaxis. No worsening or new nasal drainage or epistaxis. No mouth sores. LUNGS: She has a chronic dry cough. She does use Advair Diskus inhaler. She remains on oxygen via nasal cannula. She was having significant coughing fits and at her last visit reported this was interfering with her quality of life. Tessalon Perles and Hydrocodone elixir did not help. She has not had any hemoptysis. No pleuritic chest pain. Her cough is quite stable at this time and has improved now that she has started low dose daily dexamethasone with one tablet or 4 mg daily. CARDIOVASCULAR: She denies any chest pain. No syncope or presyncope. GI: She denies any abdominal pain, nausea, vomiting, constipation, diarrhea, bright red blood per rectum or melena. No change in appetite. : She does have some stress urinary incontinence with severe cough. No hematuria, dysuria or hematuria. ENDOCRINE: No heat or cold intolerance. She has some fatigue and generalized weakness but reports good energy levels over the last week since initiating chemotherapy. PSYCH: She denies any severe depression, severe anxiety, suicidal or homicidal ideation. MUSCULOSKELETAL: She had some lower back pain, described as spasms, which began two days ago. This was mostly noted in the lower lumbar spine. She went to the ER and was given a prescription for Valium. She's only taken this on a couple of occasions and her spasms have significantly improved. She denies any radiating lower back pain to include no radiating pain with no numbness or tingling. The remainder of a 12-point review of systems is performed today and is otherwise negative. PHYSICAL EXAMINATION VITAL SIGNS: No weight today. T 97.3, P 70, R 16, BP 140/63, oxygen saturation 93% on 3L O2 nasal cannula. GENERAL: This is a pleasant 73-year old woman who appears well-developed, well- nourished woman in no acute distress. HEAD: Normocephalic, atraumatic. EYES: Sclerae anicteric. ENT/MOUTH: Slightly dry mucous membranes. No mucositis. NECK: Supple. No lymphadenopathy. No JVD. LUNGS: Diminished breath sounds bilaterally. No wheezes, rales or rhonchi. Respiratory effort is normal. Expiratory phase is slightly prolonged. CARDIOVASCULAR: Regular rate and rhythm. No murmurs. NEURO: Patient is awake, alert and oriented x3. No focal or sensory deficits. PSYCH: Mood and affect are appropriate. EXTREMITIES: No edema. No clubbing or cyanosis. MUSCULOSKELETAL: No pain to palpation of the bony spinous processes. Gait is stable. LABORATORY CBC today: WBC 17.2, ANC 11.7, hemoglobin 10.3, hematocrit 32.9%, platelets 222,000. Red blood indices reveal mild hyperchromia with MCHC at 31.2. Leukocytosis related to recent growth factor as well as corticosteroid. IMAGING CT chest abdomen and pelvis with and without contrast on [facility] on January 08, 2019: The large right upper lobe mass has increased in size. This now measures 10.5 x 5.8 x 8.2 cm and previously this measured 7.2 x 4.5 x 5.9 cm. The mass effect on the superior vena cava has also increased in the interim. Spiculated nodule, left upper lobe, appears relatively changed. Left adrenal nodule slightly increased in size. Additional chronic findings as described. Left adrenal nodule appears slightly increased, now measuring 15 x 6 mm as opposed to 6 x 9 mm. The right adrenal gland appears unremarkable. This image was compared to October 12, 2018 image. Lumbar spine, three views, at [facility] on February 04, 2019: 1. Slight levocurvature centered in the mid lumbar spine. 2. Multi-level degenerative disk disease, most pronounced at L4-5 and L5-S1. 3. No evidence of acute compression deformity. Prior vertebroplasty changes are seen at T11. IMPRESSION AND PLAN This is a pleasant 73-year old woman with stage 4 metastatic, poorly differentiated lung cancer. She completed six cycles of carboplatin, pemetrexed and pembrolizumab from June 14, 2018 through September 28, 2018. She then began maintenance pemetrexed and pembrolizumab on October 25, 2018. She received her last dose on December 25, 2018. She had a recent CT chest, abdomen and pelvis on January 08, 2019, which did reveal some disease progression with an increase in size of the large right upper lobe mass as well as a very slight increase in size of the left adrenal nodule. Plan is for her to proceed with single-agent chemotherapy with Taxotere. She received Neulasta support on Day 2. She received Cycle #1 last week. She has had a chronic cough, which did worsen a few weeks ago and she is now on low-dose daily dexamethasone 4 mg to help with this. She does increase this per guidelines in the three days surrounding Taxotere infusion. Her breathing and cough have stabilized and are even a bit better today. Dr. Murcia has reviewed her case with Tumor Board and she was referred to Dr. Smith with Radiation Oncology here at [facility]. She saw Dr. Smith this morning. In addition to CBC and CMP ordered today, Dr. Smith has ordered a CEA. This is currently pending at time of dictation. CT sim scan was ordered and we are hopeful that she can initiate radiotherapy next week. Plan per my and Dr. Smith's conversation today is for radiotherapy targeted to the right upper lobe mass and we will continue to watch the left adrenal nodule. Hopefully, with Taxotere this will decrease and improve. Otherwise, Dr. Smith may re-evaluate this at a future date and target the adrenal if needed. Currently, she is not having any laboratory evidence of adrenal insufficiency. She did experience some lower back pain and lower back spasms a couple of days ago, which all sound like arthralgias secondary to recent growth factor. 1. Stage IV lung cancer. Recently initiated single-agent Taxotere. She is status post Cycle #1 given one week ago. We will continue with Taxotere. 2. Dexamethasone. Patient will continue with low-dose one 4 mg tablet every day in effort to help with her cough as this has improved. She will then increase this the day before, of and after treatment with Taxotere. Patient and daughter, Wiliam, are well versed on this. Of note, she is taking less dexamethasone with chemotherapy than typical but we will continue at this dosing. 3. Cough, significantly improved with low-dose dexamethasone one tablet daily. We will continue on this for now. We have discussed the long-term risks associated with chronic steroid use to include osteopenia worsening and osteoporosis as well as risks for leukocytosis and hyperglycemia. She is to continue with oxygen supplementation via nasal cannula. 4. She may continue to use other antitussives at home and she has hydrocodone elixir and Tessalon Perles, although she reports that this did not provide much relief. 5. Lower back pain/spasms. Recently seen in the emergency room for this yesterday. Imaging of the lumbar spine was unremarkable. Explained to both patient and her daughter today that this is most likely related to recent colony stimulating factor. She is doing to start daily Claritin, especially in the week of chemotherapy, as the anti-inflammatory properties can help with the arthralgias related to Neulasta. Secondly, she may continue to use her Valium p.r.n., which is prescribed in the ER, and I explained to patient that I suspect she will need to use this less the further out she is from chemotherapy. She is doing to premedicate as mentioned with Claritin daily and will also take one Valium three days post each Taxotere infusion to help prevent the arthralgias. We will continue to monitor this. 6. Patient now under the care of Dr. Smith with Radiation Oncology, whom she met with today for consultation. 7. Patient will return to the clinic in two weeks for followup and to initiate Cycle #2 with single-agent Taxotere. MTDD
--- NOTE | 2019-02-06 13:32 | ONCOLOGY FOLLOW UP NOTE ---
EVENT DATE: January 23, 2019 REASON FOR FOLLOWUP Stage IV high-grade lung carcinoma. INTERIM HISTORY Margarita returns to clinic for a followup visit today. She is accompanied by her daughter. Since our last visit, she has undergone followup imaging with CT scan. The scan, unfortunately, showed progression of disease despite ongoing chemotherapy. They are here to discuss next steps. In general, Rosa Elena has been feeling about the same, perhaps with some increased and cumulative fatigue from chemotherapy. She reports no fevers. She denies facial swelling and she has had no arm swelling. She has had no severe headaches. She reports no significant nausea and her appetite has been fair. She has had no changes in bowel or bladder habits. In general, her mood has been good and she tends to sleep fairly well. She remains on supplemental oxygen but 02 requirement has been pretty stable. REVIEW OF SYSTEMS Otherwise negative and all systems reviewed. ONCOLOGY HISTORY Stage IV high-grade lung carcinoma. * Patient developed cough in April 2018. CT scan shows right upper lobe mass. * Bronchoscopy and EUS on May 18, 2018: Poorly differentiated non-small cell carcinoma with subcarinal lymph node and right paratracheal lymph node positive as well as endobronchial biopsy of right upper lobe mass. * CT PET on May 28, 2018: Dense, hypermetabolic, right upper lobe pulmonary mass confluent with superior right hilum and extending toward the subcarinal space but without discrete/separate adenopathy. Several irregular left upper lobe pulmonary nodules, the largest hypermetabolic but all three consistent with metastatic disease. * June 14, 2018: Patient begins palliative chemotherapy with carboplatin, pemetrexed and pembrolizumab. * Patient completes six cycles of carboplatin, pemetrexed and pembrolizumab on September 28, 2018, with disease response. * Maintenance pemetrexed and pembrolizumab are initiated on October 25, 2018. * Patient continues maintenance therapy through December 25, 2018. 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 * Plan for initiation of single-agent Taxotere on January 29, 2019. PAST MEDICAL HISTORY 1. COPD. 2. History of smoking, quit in 2011. 3. GERD. 4. Macular degeneration in the right eye. 5. Non-small cell lung cancer as above. CURRENT MEDICATIONS Citalopram, oxybutynin, omeprazole, potassium, hydrocodone elixir and Advair Diskus. ALLERGIES Penicillin. SOCIAL HISTORY The patient is . She has a history of heavy smoking, quit in 2011. There is no history of illicit drug use or alcohol abuse. FAMILY HISTORY There is a history of heart disease and hypertension as well as Alzheimer's disease. There are no known malignancies in the family. VITAL SIGNS: Temperature 97.0, blood pressure 114/68, heart rate 66, respirations 16, oxygen saturation 93% on 3L nasal cannula, weight 68.1 kg. PHYSICAL EXAMINATION GENERAL: Patient is alert and oriented x3, in no apparent distress, sitting in exam room chair. She is in good spirits and quite interactive. HEENT: Anicteric sclerae. NEUROLOGIC: Grossly nonfocal. Gait is normal. Otherwise nonfocal. EXTREMITIES: No edema, clubbing or cyanosis. Specifically, there is no edema of the bilateral upper extremities and no neck edema. SKIN: No concerning rash or lesion. LABORATORY STUDIES Reviewed per the [facility] record. IMAGING Please see Oncology History. ASSESSMENT AND PLAN Stage IV high-grade lung carcinoma, progressing. I had a good visit with Rosa Elena and her daughter today. Fortunately, symptomatically, she continues to do fairly well all things considered. Rosa Elena is aware that her most recent CT scan has unfortunately shown progression of her cancer despite ongoing maintenance therapy with pemetrexed and pembrolizumab. We spent a good deal of time today discussing her options. I have recommended that she consider second line Taxotere and she expresses interest. We spent time discussing risks, toxicities and potential benefit. She will need to go for chemotherapy education and she will continue to be followed closely here. We also discussed today the potential risks of superior vena cava syndrome with the progression of disease in the chest. There does appear to be more compression of the vessel, although she is currently asymptomatic in this regard. As discussed, I would like to review her case at our upcoming thoracic multi-disciplinary conference, and I would anticipate palliative radiation to prevent superior vena cava syndrome on the chance that Taxotere does not bring further disease control. Will refer to radiation oncology. All questions answered today. I will plan to see her back during my next visit to [place]. I spent a total of 30 minutes of time [id number] with the patient and her daughter today and more than half of this time was spent in direct counseling and coordination of care. DUTCH
[2019-02-12 11:29] VITALS: BP 139/75
[2019-02-12 11:30] LABS: PLATELET COUNT, AUTOMATED 193 K/uL (150-450)
[2019-02-19 11:24] VITALS: BP 126/72
[2019-02-19] MEDS: LIDOCAINE/SOD BICARB 8.4% SYR ID PRN (12:28)
[2019-02-19] MEDS: HEPARIN FLSH (PORT) 500 UN/5ML IVP PRN (13:30)
[2019-02-19 13:31] VITALS: BP 144/67
[2019-02-20 11:24] VITALS: BP 146/74
[~2019-02-26] VITALS: Ht 151.1 cm; Wt 67.4 kg
[~2019-02-26 11:10] MED LIST changes: +ALTEPLASE RECOMB 2 MG VIAL IVP PRN; +CYANOCOBALAMIN 1000MCG/ML VIAL IM ONLY PRN; +DEXTROSE 5%(*) 100 ML BAG 100 ML IVPB PRN; +DIAZ2TAB72 PO; +DOCETAXEL IVPB ONE; +IOPAMIDOL 76% 100 ML INFUS BTL 100 ML ONE; +NS 0.9% IVPB ONE; +NS(*) 0.9% 100 ML BAG 100 ML IVPB PRN; +PEGFILGRASTIM 6 MG/0.6 ML SYR SUBQ ONE; +PEMBROLIZUMAB 100 MG/4 ML SDV 200 MG in NS(*) 0.9% 50 ML BAG 50 ML IV ONE; +PEMETREXED DISOD IVPB ONE; +WATER FOR INJ,STERILE 20 ML IVP PRN; +[UNRECOGNIZED DRUG - OTHER] IVPB ONE; +[UNRECOGNIZED DRUG - OTHER] IVPB ONE
[2019-02-26 11:23] VITALS: BP 152/84
[2019-02-26 11:30] LABS: PLATELET COUNT, AUTOMATED 161 K/uL (150-450)
--- NOTE | 2019-03-05 19:40 | ONCOLOGY FOLLOW UP NOTE ---
EVENT DATE: February 20, 2019 REASON FOR FOLLOWUP Stage IV, high-grade 1 carcinoma. INTERIM HISTORY Margarita returns to clinic for a followup visit today. She is accompanied by her daughter. Since our last visit, she has initiated second line palliative systemic therapy with Taxotere, and she has tolerated the Taxotere remarkably well. She had also recently been started on low-dose dexamethasone, and that has improved her overall well-being, in particular her cough. She has seen Dr. Smith in Radiation Oncology regarding concerns for impending SVC syndrome. She is receiving radiating therapy, and she has no signs or symptoms to suggest emerging SVC syndrome. She has had a decent energy level. She continues to be fairly busy around the house. She reports no new pain. She denies fever. She has had no changes in bowel or bladder habits. In general, she is happy about how things are going on second line therapy. Her oxygen requirement remains about the same. REVIEW OF SYSTEMS Otherwise negative, and all symptoms were reviewed. ONCOLOGY HISTORY Stage IV high-grade lung carcinoma. 1. Patient developed cough in April 2018. CT scan shows right upper lobe mass. 2. Bronchoscopy and EUS on May 18, 2018: Poorly differentiated non-small cell carcinoma with subcarinal lymph node and right paratracheal lymph node positive as well as endobronchial biopsy of right upper lobe mass. 3. CT PET on May 28, 2018: Dense, hypermetabolic right upper lobe pulmonary mass confluent with superior right hilum and extending toward the subcarinal space, but without discrete/separate adenopathy. Several irregular left upper lobe pulmonary nodules, the largest hypermetabolic, but all three consistent with metastatic disease. 4. June 14, 2018: Patient begins palliative chemotherapy with carboplatin, pemetrexed, and pembrolizumab. 5. Patient completes six cycles of carboplatin, pemetrexed, and pembrolizumab on September 28, 2018, with disease response. 6. Maintenance pemetrexed and pembrolizumab are initiated on October 25, 2018. 7. Patient continues maintenance therapy through December 25, 2018. 8. 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 9. Initiation of single-agent Taxotere on January 29, 2019. PAST MEDICAL HISTORY 1. COPD. 2. History of smoking, quit in 2012. 3. GERD. 4. Macular degeneration in the right eye. 5. Non-small cell lung cancer as above. CURRENT MEDICATIONS 1. Citalopram. 2. Oxybutynin. 3. Omeprazole. 4. Potassium. 5. Hydrocodone elixir. 6. Advair Diskus. 7. Low-dose dexamethasone p.o. ALLERGIES PENICILLIN. SOCIAL HISTORY The patient is . She has a history of heavy smoking, quit in 2011. There is no history of illicit drug use or alcohol abuse. FAMILY HISTORY There is a history of heart disease and hypertension as well as Alzheimer disease. There are no known malignancies in the family. VITAL SIGNS: Temperature is 97.1, blood pressure 146/74, heart rate is 67, respirations 16, oxygen saturation is 93% on 3L. Weight is 67.4 kg. PHYSICAL EXAMINATION GENERAL: Patient is alert and oriented x3, in no apparent distress, sitting in exam room chair. She is in good spirits and quite interactive. HEENT: Anicteric sclerae and no facial edema. EXTREMITIES: No upper extremity edema. No clubbing or cyanosis. NEUROLOGIC: Grossly nonfocal, and her gait is normal. SKIN: No concerning rash or lesion. LABORATORY STUDIES Reviewed per the [facility] record. IMAGING Please see Oncology History. ASSESSMENT AND PLAN Stage IV high-grade lung carcinoma. Rosa Elena continues to do remarkably well. She has no signs or symptoms to suggest obvious progression of her lung cancer, and current treatment with second line Taxotere as well as palliative radiation seems to be going quite well. She has no signs or symptoms to suggest superior vena cava syndrome. She has had significant improvement in quality of life as well as her cough with low-dose dexamethasone. This can continue for now. We spent time discussing our plans moving forward. These will include completion of radiation therapy as well as palliative Taxotere to continue every three weeks. She will continue to be followed closely here, and I will plan to see her during my next trip to [place]. All questions answered today. MTDD
== END 2019-03-03 ==
LOC: SPU 11:10
PROVIDERS: ATTEND Internal Medicine Medical Oncology
DX: Z51.11 Encounter for antineoplastic chemotherapy (principal); C34.11 Malignant neoplasm of upper lobe, right bronchus or lung; Z23 Encounter for immunization; J44.9 Chronic obstructive pulmonary disease, unspecified; H21.23 Degeneration of iris (pigmentary); D64.9 Anemia, unspecified; K21.9 Gastro-esophageal reflux disease without esophagitis; D69.6 Thrombocytopenia, unspecified; J34.89 Other specified disorders of nose and nasal sinuses; Z87.891 Personal history of nicotine dependence; Z99.81 Dependence on supplemental oxygen; R53.83 Other fatigue; R05 Cough; R06.02 Shortness of breath; E27.8 Other specified disorders of adrenal gland; M54.5 Low back pain
CPT/HCPCS: 36415; 36430; 36591; 71270; 74178; 82378; 83735; 84439; 84443; 84481; 85025; 85027; 86850; 86900; 86901; 86920; 96372; 96375; 96411; 96413; 96417; G0463; J1100; J1642; J2469; J2505; J2997; J3420; J7040; J7050; J9171; J9271; J9305; P9016; Q9967; 82040; 82247; 82310; 82374; 82435; 82565; 82947; 84075; 84132; 84155; 84295; 84450; 84460; 84520; 99212

== ENCOUNTER 2019-04-01 11:00 | Outpatient (RCR) | payer MEDICARE ==
[2019-02-05 09:09] VITALS: BP 140/63
[2019-03-20 11:47] LABS: PLATELET COUNT, AUTOMATED 179 K/uL (150-450)
[2019-03-20 12:03] VITALS: BP 152/74
[2019-03-26 11:04] LABS: PLATELET COUNT, AUTOMATED 167 K/uL (150-450)
[~2019-04-01 11:00] MED LIST changes: -ALTEPLASE RECOMB 2 MG VIAL IVP PRN; -CYANOCOBALAMIN 1000MCG/ML VIAL IM ONLY PRN; -DEXTROSE 5%(*) 100 ML BAG 100 ML IVPB PRN; -DOCETAXEL IVPB ONE; -IOPAMIDOL 76% 100 ML INFUS BTL 100 ML ONE; -NS 0.9% IVPB ONE; -NS(*) 0.9% 100 ML BAG 100 ML IVPB PRN; -PEGFILGRASTIM 6 MG/0.6 ML SYR SUBQ ONE; -PEMBROLIZUMAB 100 MG/4 ML SDV 200 MG in NS(*) 0.9% 50 ML BAG 50 ML IV ONE; -PEMETREXED DISOD IVPB ONE; -WATER FOR INJ,STERILE 20 ML IVP PRN; -[UNRECOGNIZED DRUG - OTHER] IVPB ONE; -[UNRECOGNIZED DRUG - OTHER] IVPB ONE
[2019-05-01] MEDS ORDERED: APIX5TAB PO (12:02)
[2019-05-09] MEDS ORDERED: HYDR12.561 PO (21:58)
[2019-05-10] MEDS ORDERED: DEXA2TAB7 PO (09:25)
[2019-05-10] MEDS ORDERED: DOCU-416 PO (09:25)
== END 2019-05-05 ==
LOC: RAON 11:00
PROVIDERS: ATTEND Radiology Radiation Oncology
DX: Z51.0 Encounter for antineoplastic radiation therapy (principal); C34.11 Malignant neoplasm of upper lobe, right bronchus or lung
CPT/HCPCS: 36415; 76999; 77280; 77300; 77301; 77336; 77338; 77386; 77412; 85025; 93971; G0463; 82040; 82247; 82310; 82374; 82435; 82565; 82947; 84075; 84132; 84155; 84295; 84450; 84460; 84520; 85027; 96372; 96413; 99202; 99212; J1442; J1642; J7050; J9171

== ENCOUNTER → 2019-05-01 | Outpatient (CLI) | payer MEDICARE ==
[~2019-05-01] MED LIST changes: +APIX5TAB PO
--- NOTE | 2019-05-01 14:39 | RADIOLOGY IMAGING REPORT ---
FACILITY: PATIENT NAME: Margarita Smith : 1945 MR: [id number] V: [id number] EXAM DATE: ORDERING PHYSICIAN: MIK HSIEH TECHNOLOGIST: Location: [facility] [place] Patient: Margarita Smith : 1945 Visit/Account:[id number] Date of Sevice: 05/01/2019 Exam type: US VENOUS DOPPLER - UPPER EXT RT History: Evaluate for DVT, possible IJ narrowing Comparison: None. Findings: Right internal jugular vein subclavian vein, axillary vein, brachial vein, basilic vein, radial vein, ulnar veins are patent without evidence of intraluminal thrombi. The veins were compressible and de monstrated augmentation IMPRESSION: 1. No sonographic evidence DVT involving the right upper extremity veins Report Dictated By: Susanna Decker MD at 05/01/2019 2:32 PM Report E-Signed By: Susanna Decker MD at 05/01/2019 2:33 PM WSN:[email or web address]
--- NOTE | 2019-05-01 14:50 | RADIOLOGY IMAGING REPORT ---
[place] [facility] [place] NAME: Margarita Smith : 1945 MR: [id number] V: [id number] EXAM DATE: ORDERING PHYSICIAN: MIK HSIEH TECHNOLOGIST: [place] [facility] [place] : 1945 Visit/Account:[id number] Date of Sevice: 05/01/2019 Exam type: US SOFT TISSUE NON-SPECIFIC History: Possible port infection Comparison: None. Findings: Multiple images of the upper anterior right chest wall location of patient's pain demonstrates no andrea dence of a focal abscess or other fluid collection adjacent to the port. IMPRESSION: 1. No soft tissue abnormality identified along the anterior right chest wall adjacent to the patient 's port Report Dictated By: Susanna Decker MD at 05/01/2019 2:33 PM Report E-Signed By: Susanna Decker MD at 05/01/2019 2:44 PM WSN:[email or web address]
== END ==
LOC: US 13:09
PROVIDERS: ATTEND Internal Medicine Medical Oncology
DX: C34.90 Malignant neoplasm of unspecified part of unspecified bronchus or lung (principal)
CPT/HCPCS: 76999

== ENCOUNTER → 2019-05-28 | Outpatient (CLI) | payer MEDICARE ==
[~2019-05-28] MED LIST changes: +DEXA2TAB7 PO; +HYDR12.561 PO; +IOPAMIDOL 76% 100 ML INFUS BTL 100 ML ONE
--- NOTE | 2019-05-28 13:17 | RADIOLOGY IMAGING REPORT ---
FACILITY: [facility] [place] PATIENT NAME: Margarita Smtih : 1945 MR: [id number] V: [id number] EXAM DATE: ORDERING PHYSICIAN: ZABRINA CLEMONS TECHNOLOGIST: Location: [facility] Patient: Margarita Smith : 1945 Visit/Account:[id number] Date of Sevice: 05/28/2019 EXAMINATION: CT Chest With Contrast CT Abdomen With Contrast CT Pelvis With Contrast 05/28/2019 11:30 AM HISTORY: History of metastatic non-small cell lung carcinoma. Restaging. TECHNIQUE: Spiral scan was obtained through the chest, abdomen and pelvis during injection of nonio yaritza iodinated intravenous contrast. Contrast: 75 mL of IV Isovue 370. One of the following dose optimization techniques was utilized in the performance of this exam: Autom ated exposure control; adjustment of the mA and/or kV according to the patient's size; or use of an i terative reconstruction technique. Specific details can be referenced in the facility's radiology C T exam operational policy. COMPARISON STUDIES: Chest x-ray 05/15/2019. CTA chest 05/09/2019. CT chest, abdomen, and pelvis 12/28. FINDINGS: CHEST: Lungs / pleura: Irregular soft tissue still occludes upper lobe airways on the right with spiculated tissue consolidated against the mediastinum. I am not certain if this is diminished tissue and tumor orifices mediastinal scarring and has been right upper lobectomy since December. Solid tissue measures 7.4 cm AP by 2.1 cm transverse and extends to the apex with a 6.7 cm craniocaudal measurement. Over all the bulk of tissue is essentially stable from the earlier study this month is substantially impro mj since December. Reticular markings in the upper right lung field around this tissue are increased, as is right middle lobe consolidation. Severe background emphysema. Irregular or spiculated density in the anterior left upper lobe measures 2.7 x 0.9 cm (series 4 image 31), little changed since Chirag . Soft tissue nodularity and pleural parenchymal density in the left upper lobe against the mediast inum is increased from December but essentially stable from 05/09/2019. Mediastinum / logan: Mild rightward mediastinal shift is unchanged. Heart / pericardium: negative Vessels: Port catheter enters on the right with the tip in SVC. Sclerosis includes coronary disease. Musculoskeletal / Body wall: Stable T11 compression deformity with vertebral cement with extra verteb ral extension of the cement anteriorly on the right. Lymph node assessment: negative Lower neck: negative ABDOMEN AND PELVIS: Liver / biliary: Mild intrahepatic biliary prominence in this postcholecystectomy patient. Indistinc t hypodensity in the right lobe measures 1 cm (series 2 image 73) and is stable. Additional small hy podensities along the gallbladder fossa and the right lobe are similar to previous. Pancreas: negative Spleen: negative Adrenal glands: Left adrenal nodule is less evident with mild thickening of the posterior limb. Kidneys / retroperitoneum: Renal cortical cysts, largest on the left measuring 2.6 cm. Pelvic structures: Prior hysterectomy. Bowel / peritoneum / mesenteries: Small hiatal hernia. Tortuosity of the colon with fecal material t hroughout its length with relative distal rectosigmoid sparing. Small bowel is not distended. Vessels: Atherosclerosis. Infrarenal abdominal aorta dilates mildly to 2.3 cm and does contain some mural thrombus. Musculoskeletal / Body wall: Degenerative changes in the spine. Tiny fatty umbilical hernia and larg er fatty midline infraumbilical hernia. Lymph node assessment: negative IMPRESSION: 1. Suprahilar soft tissue density in the mediastinum on the right is no significant change from rece nt priors. I am uncertain if this is posttreatment tumor and upper lobe consolidation or if there bass s been upper lobectomy and this is postsurgical scarring against the mediastinum. 2. Irregular or spiculated left upper lobe nodule is grossly stable comparing to December. Additional pleural-paren hymal densities anteromedial left upper lobe are increased from December but stable since April.3. Against background emphysema there is increasing reticular infiltrate in the right upper stephani g and increasing airspace consolidation the right middle lobe. This may be posttreatment inflammator y change but infection cannot be excluded. This does not have a characteristic appearance for malign ori. 4. Hypoenhancing liver foci which may be benign and at least some which may be focal fat, although t hese are indeterminate. No definite metastatic disease outside the chest. Report Dictated By: Carlos Gilbert MD at 05/28/2019 12:48 PM Report E-Signed By: Carlos Gilbert MD at 05/28/2019 1:09 PM WSN:[email or web address]
== END ==
LOC: CT 00:13
PROVIDERS: ATTEND Nurse Practitioner
DX: K76.89 Other specified diseases of liver (principal); R91.1 Solitary pulmonary nodule
CPT/HCPCS: 71260; 74177; Q9967

== ENCOUNTER 2019-05-29 10:19 | Outpatient (RCR) | payer MEDICARE ==
[2019-03-12] MEDS: HEPARIN FLSH (PORT) 500 UN/5ML IVP PRN (11:21)
[2019-03-12] MEDS: LIDOCAINE/SOD BICARB 8.4% SYR ID PRN (11:21)
[2019-03-12] MEDS: NS(*) 0.9% 250 ML BAG 250 ML IVPB PRN (11:22)
[2019-03-12 13:45] VITALS: BP 154/76
--- NOTE | 2019-03-12 20:58 | ONCOLOGY FOLLOW UP NOTE ---
EVENT DATE: March 12, 2019 CHIEF COMPLAINT Patient is here today for followup on her [id number] lung cancer. She recently initiated single-agent Taxotere with first cycle given on 01/29/19. DIAGNOSIS Stage IV, high-grade non-small cell lung carcinoma. HISTORY OF PRESENT ILLNESS Patient is a 73-year-old female who has now completed four cycles of pemetrexed and pembrolizumab. She has tolerated treatment fairly well, although developed significant fatigue with mild anemia. She did receive one unit of PRBCs on December 14, 2018, and since then, has noticed slightly less fatigue. She has had an intermittent cough, which she feels is aggravated at times by allergies as well as the wind. This has improved on Advair Diskus. She does have a prescription for hydrocodone elixir at night for severe cough, although reports that this does not typically help her cough too well. We did place her on a Medrol Dosepak a few weeks ago, which significantly improved her cough. She remains on portable oxygen via nasal cannula 2-3L. She had re-staging CT scan on January 08, 2019. Disease progression was noted on scans. Pemetrexed and pembrolizumab were then discontinued. She was initiated on single-agent Taxotere on day 1 every 21 days. We are omitting Neulasta as she is on radiation therapy, and white count has been stable. She is tolerating Taxotere remarkably well. She has completed two cycles thus far. She will be initiating her third cycle today. We did start her on low-dose dexamethasone daily, 4 mg tablet, to help with her cough. This has improved her overall well-being, in particular her cough. She tells me that she no longer has a cough at all and only has occasional clear sputum usually in the mornings. She also initiated radiotherapy with Dr. Smith. There were some concerns for impending SVC syndrome on recent scans. She is tolerating radiotherapy quite well. She is due to complete radiation on 04/03/19. She tells me that her energy levels are excellent. Her appetite is excellent and is "too good." She has not had any GI symptoms, to include no nausea, vomiting, diarrhea, or constipation. She has not had any bladder issues. She reports a fairly good amount of energy and only begins to get tired in the late afternoon around 5 p.m. She has been going out to dinner with her daughter and reports having an excellent Mother's Day over the weekend. In general, she tells me that she is extremely happy about the way things are going for her on second line therapy. Her oxygen requirement remains the same. This has not changed. She has not had any spasms as she is no longer on Neulasta. She received Neulasta only after her first cycle, though counts were good. She then started radiotherapy, so this has been discontinued for now. She does mention that she had a couple of cuts on her fingers, which appeared to be slow to heal recently. Lastly, she reports that she had some redness over her left hand over some knuckles, which became reddened for a couple of days, then resolved completely on its own. She has only some increased dryness left over to that area. There was no itching. ONCOLOGY HISTORY The patient developed significant cough in April 2018. She has a history of moderate COPD and chronic hypoxemia, requiring supplemental oxygen for the past few years. CT of the chest showed a right upper lobe mass. Bronchoscopy and EBUS on May 18, 2018, revealed a poorly differentiated non-small cell carcinoma with a subcarinal lymph node and right paratracheal lymph node, as well as endobronchial biopsy of the right upper lobe mass. PET CT on May 28, 2018, revealed a dense, hypermetabolic right upper lobe pulmonary mass confluent with the superior right hilum and extending toward the subcarinal space, but without discrete/separate adenopathy. There were several irregular left upper lobe pulmonary nodules, the largest hypermetabolic, but all three consistent with metastatic disease. Patient began palliative treatment with carboplatin, pemetrexed, and pembrolizumab on June 14, 2018. Completed six cycles of carboplatin, pemetrexed, and pembrolizumab from June 14, 2018, through September 28, 2018. Began maintenance pemetrexed and pembrolizumab on October 25, 2018. She received her last cycle with this on December 25, 2018. Patient initiated single-agent Taxotere on January 29, 2019. PAST MEDICAL HISTORY 1. COPD. 2. History of smoking; patient quit in 2011. 3. Gastroesophageal reflux disease. 4. Macular degeneration, right eye. 5. Non-small cell lung cancer, April 2018. SOCIAL HISTORY The patient is . She has four grown children and lives with her daughter here in [place]. She has a history of heavy smoking, but quit in 2011. There is no history of alcohol or illicit drug use. FAMILY HISTORY There is history of heart disease and hypertension as well as Alzheimer disease. There are no known cancers in the family. MEDICATIONS 1. Citalopram. 2. Oxybutynin. 3. Omeprazole. 4. Potassium 20 mEq daily. 5. Hydrocodone elixir 7.5/325 mg/15 mL, 5 to 10 mL q.4 to 5 hours p.r.n. cough. 6. Advair 25/50 Diskus. ALLERGIES PENICILLIN. REVIEW OF SYSTEMS CONSTITUTIONAL: Rosa Elena denies any recent fevers, chills, or night sweats. No recent infections. Her energy level has been quite good, and she has been going out to eat with her family and has been running errands. HEENT: No vision changes. No epistaxis. No worsening nasal drainage. No mouth sores. LUNGS: She reports that her chronic dry cough has completely resolved. She uses Advair Diskus inhaler as needed. She has only occasional clear sputum. Usually if this happens, it is in the morning. She remains on oxygen via nasal cannula at 2-3L. She has not had to change her oxygen requirement. She does have Tessalon Perles and hydrocodone elixir to help with her cough at home, but tells me she has not required this since her cough has dissipated. No hemoptysis. CARDIOVASCULAR: She denies any chest pain. No syncope or presyncope. GASTROINTESTINAL: She denies any abdominal pain, nausea, vomiting, constipation, diarrhea, bright red blood per rectum, or melena. Her appetite is excellent. GENITOURINARY: Patient has some stress urinary incontinence with severe cough, though reports that this has also improved since her cough has resolved. No dysuria or hematuria. ENDOCRINE: No heat or cold intolerance. Her energy levels are quite good ever since starting Taxotere. PSYCHIATRIC: She denies any severe depression, severe anxiety, suicidal or homicidal ideation. Rosa Elena tells me that she is quite happy with the way things are going for her. MUSCULOSKELETAL: She is no longer experiencing any back pain or back spasms. She has only occasional degenerative-type pains. SKIN: She denies any rash. No generalized pruritus. She did have some redness noted over an area of her left hand a couple of weeks ago, though this then resolved. She does have some extra dry skin on her hands bilaterally. NEUROLOGIC: She denies any headache, seizure activity, numbness, or tingling. PHYSICAL EXAMINATION VITAL SIGNS: T 97.8, P 61, R 18, BP 158/82, oxygen saturation 93% on oxygen 2- 3L nasal cannula. GENERAL: This is a pleasant 73-year old woman who appears to be a well- developed, well-nourished woman in no acute distress. HEAD: Normocephalic, atraumatic. Patient has some mild mood facies related to daily corticosteroid use. EYES: Sclerae anicteric. ENT, MOUTH: Slightly dry mucous membranes. No mucositis. NECK: Supple. No lymphadenopathy. No JVD. LUNGS: Diminished breath sounds bilaterally. No wheezes, rales, or rhonchi. Respiratory effort is normal. Expiratory phase is slightly prolonged. CARDIOVASCULAR: Regular rate and rhythm. No murmurs. NEUROLOGIC: Patient is awake, alert, and oriented x3. No focal or sensory deficits. PSYCHIATRIC: Mood and affect are appropriate. EXTREMITIES: No edema. No clubbing or cyanosis. MUSCULOSKELETAL: No pain to palpation of the bony spinous processes. Gait is stable. DERM: No rash. No petechiae or purpura. Patient does have some mildly excessive dryness noted over some of her knuckles on her left hand. There is no erythema and no signs of rash. LABORATORY CBC today: WBC 12.2, ANC 11.4, hemoglobin 10.7, hematocrit 33.6%, platelets 179,000. CMP today: Unremarkable with the exception of mildly elevated BUN at 20. Serum creatinine normal at 0.70. IMAGING CT chest abdomen and pelvis with and without contrast on [facility] on January 08, 2019: The large right upper lobe mass has increased in size. This now measures 10.5 x 5.8 x 8.2 cm and previously this measured 7.2 x 4.5 x 5.9 cm. The mass effect on the superior vena cava has also increased in the interim. Spiculated nodule, left upper lobe, appears relatively changed. Left adrenal nodule slightly increased in size. Additional chronic findings as described. Left adrenal nodule appears slightly increased, now measuring 15 x 6 mm as opposed to 6 x 9 mm. The right adrenal gland appears unremarkable. This image was compared to October 12, 2018, image. Lumbar spine, three views, at [facility] on February 04, 2019: 1. Slight levocurvature centered in the mid lumbar spine. 2. Multi-level degenerative disk disease, most pronounced at L4-5 and L5-S1. 3. No evidence of acute compression deformity. Prior vertebroplasty changes are seen at T11. IMPRESSION AND PLAN This is a pleasant 73-year old woman with stage IV metastatic, poorly differentiated lung cancer. She completed six cycles of carboplatin, pemetrexed, and pembrolizumab from June 14, 2018, through September 28, 2018. She then began maintenance pemetrexed and pembrolizumab on October 25, 2018. She received her last dose on December 25, 2018. She had a recent CT chest, abdomen, and pelvis on January 08, 2019, which did reveal some disease progression with an increase in size of the large right upper lobe mass as well as a very slight increase in size of the left adrenal nodule. Plan is for her to proceed with single-agent chemotherapy with Taxotere. She initiated Cycle #1 on 01/29/19. She received Neulasta support with that cycle only. A couple of weeks later, she initiated radiotherapy, and we have since held Neulasta. Her counts have been in good range. She does have leukopenia related to daily corticosteroid use. She is on day 18 of radiotherapy and is set to complete radiation on 04/03/19. She has received two cycles with Taxotere thus far and has tolerated these extremely well. Of note, Dr. Simth may reevaluate the left adrenal nodule in the future and may target the adrenal if needed. We are hoping that this will also decrease and improve with Taxotere. Currently, there is no evidence of adrenal insufficiency. She is no longer having any back pain, and this was likely related to the one-time Neulasta injection after her first cycle. Appetite has been excellent. She has had no gastrointestinal distress or symptomatology, and her energy level is excellent. 1. Stage IV lung cancer. Recently initiated single-agent Taxotere. Patient will proceed with Cycle #3 single-agent Taxotere today. We are continuing to hold Neulasta for now. 2. Dexamethasone: Patient is currently on low-dose 4 mg tablet every day, and that does help with her cough, which has significantly improved since initiating. She will remain on daily dexamethasone for now. She will continue to take only one tablet daily regardless of chemotherapy so we can help prepare her for weaning her off this. She may continue to use her antitussives at home, which she has Tessalon Perles and hydrocodone elixir, though she is not using these at this time. 3. Leukopenia: Related to dexamethasone as per above. 4. Cough: Resolved for now with only occasional cough with clear sputum. She is aware of the long-term risks associated with chronic steroid use, to include osteopenia or worsening osteoporosis, as well as risks for leukocytosis and hyperglycemia. She is to continue with her oxygen supplementation via nasal cannula at 2 to 3L. 5. Derm: dryness noted to her hands. We discussed potential for taxotere- induced rash and she will inform us if the redness reoccurs. 6. Patient will continue to follow up with Dr. Smith with Radiation Oncology. 7. I will have patient recheck a CBC next week as in the past her white count has gone down to a farhat of 1400. 8. Patient will return to clinic in three weeks for followup and should be initiating Cycle #4 of Taxotere at that time. She may certainly follow up sooner if needed. MTDD
[2019-03-21 11:12] VITALS: BP 148/78
--- NOTE | 2019-03-22 04:25 | ONCOLOGY FOLLOW UP NOTE ---
EVENT DATE: March 21, 2019 CHIEF COMPLAINT Patient is here today for followup and repeat CBC after receiving Neupogen yesterday. We are following her for her [id number] lung cancer. She recently initiated single-agent Taxotere with Cycle #1 given on 01/29/19. DIAGNOSIS Stage IV, high-grade non-small cell lung carcinoma. HISTORY OF PRESENT ILLNESS Patient is a 73-year-old female who has now completed four cycles of pemetrexed and pembrolizumab. She has tolerated treatment fairly well, although developed significant fatigue with mild anemia. She did receive one unit of PRBCs on December 14, 2018, and since then, has noticed slightly less fatigue. She has had an intermittent cough, which she feels is aggravated at times by allergies as well as the wind. This has improved on Advair Diskus. She does have a prescription for hydrocodone elixir at night for severe cough, although reports that this does not typically help her cough too well. We did place her on a Medrol Dosepak a few weeks ago, which significantly improved her cough. She remains on portable oxygen via nasal cannula 2-3L. She had re-staging CT scan on January 08, 2019. Disease progression was noted on scans. Pemetrexed and pembrolizumab were then discontinued. She was initiated on single-agent Taxotere on day 1 every 21 days. We are omitting Neulasta as she is on radiation therapy, and white count has been stable. She is tolerating Taxotere remarkably well. We initiated her third cycle on 03/12/19. We did start her on low-dose dexamethasone daily, 4 mg tablet, to help with her cough. This has improved her overall well-being, in particular her cough. She tells me that she no longer has a cough at all and only has occasional clear sputum usually in the mornings. She also initiated radiotherapy with Dr. Smith. There were some concerns for impending SVC syndrome on recent scans. She is tolerating radiotherapy quite well. She is due to complete radiation on 04/03/19. She tells me that her energy levels are excellent. Her appetite is excellent and is "too good." She has not had any GI symptoms, to include no nausea, vomiting, diarrhea, or constipation. She has not had any bladder issues. She reports a fairly good amount of energy and only begins to get tired in the late afternoon, around 5 p.m. In general, she has been extremely happy about the way things are going for her on second-line therapy. Her oxygen requirement remains the same. She only received Neulasta after her first cycle, which was prior to initiating radiotherapy. She did have some back spasms, related to the Neulasta, which did result in an ER visit; Valium was prescribed, which helped significantly. She only needed a couple of doses of that time. She then started radiotherapy and remains on radiotherapy currently. Yesterday, she was in clinic for weekly CBC per protocol, and ANC was found to be down to 0.78. She was feeling quite well, was afebrile and nontoxic appearing. After her first cycle (again, which was prior to radiotherapy), we discontinued her Neulasta, as her counts were good. She is on low-dose dexamethasone 4 mg tablet once a day, which has helped her cough significantly as well as her energy. As a result of her ANC yesterday, we did administer Neupogen 480 mcg. Today she is here for a repeat CBC to evaluate whether or not she needs any further Neupogen. She tells me that she continues to feel quite well. She did have a back spasm last night into the early afternoon, but took a dose of Valium, which helped eliminate that. Otherwise, she tells me she feels exactly the same as she did last week and is feeling quite well. Her daughter Wiliam is accompanying her today. ONCOLOGY HISTORY The patient developed significant cough in April 2018. She has a history of moderate COPD and chronic hypoxemia, requiring supplemental oxygen for the past few years. CT of the chest showed a right upper lobe mass. Bronchoscopy and EBUS on May 18, 2018, revealed a poorly differentiated non-small cell carcinoma with a subcarinal lymph node and right paratracheal lymph node, as well as endobronchial biopsy of the right upper lobe mass. PET/CT on May 28, 2018, revealed a dense, hypermetabolic right upper lobe pulmonary mass confluent with the superior right hilum and extending toward the subcarinal space, but without discrete/separate adenopathy. There were several irregular left upper lobe pulmonary nodules, the largest hypermetabolic, but all three consistent with metastatic disease. Patient began palliative treatment with carboplatin, pemetrexed, and pembrolizumab on June 14, 2018. Completed six cycles of carboplatin, pemetrexed, and pembrolizumab from June 14, 2018, through September 28, 2018. Began maintenance pemetrexed and pembrolizumab on October 25, 2018. She received her last cycle with this on December 25, 2018. Patient initiated single-agent Taxotere on January 29, 2019. PAST MEDICAL HISTORY 1. COPD. 2. History of smoking; patient quit in 2011. 3. Gastroesophageal reflux disease. 4. Macular degeneration, right eye. 5. Non-small cell lung cancer, April 2018. SOCIAL HISTORY The patient is . She has four grown children and lives with her daughter here in [place]. She has a history of heavy smoking, but quit in 2011. There is no history of alcohol or illicit drug use. FAMILY HISTORY There is history of heart disease and hypertension as well as Alzheimer disease. There are no known cancers in the family. MEDICATIONS 1. Citalopram. 2. Oxybutynin. 3. Omeprazole. 4. Potassium 20 mEq daily. 5. Hydrocodone elixir 7.5/325 mg/15 mL, 5 to 10 mL q.4 to 5 hours p.r.n. cough. 6. Advair 25/50 Diskus. ALLERGIES PENICILLIN. REVIEW OF SYSTEMS CONSTITUTIONAL: Rosa Elena denies any recent fevers, chills, or night sweats. No recent infections. Her energy level has been quite good, and she has been going out to eat with her family and has been running errands. HEENT: No vision changes. No epistaxis. No worsening nasal drainage. No mouth sores. LUNGS: She reports that her chronic dry cough has completely resolved. She uses Advair Diskus inhaler as needed. She has only occasional clear sputum. Usually if this happens, it is in the morning. She remains on oxygen via nasal cannula at 2-3L. She has not had to change her oxygen requirement. She does have Tessalon Perles and hydrocodone elixir to help with her cough at home, but tells me she has not required this since her cough has dissipated. No hemoptysis. CARDIOVASCULAR: She denies any chest pain. No syncope or presyncope. GASTROINTESTINAL: She denies any abdominal pain, nausea, vomiting, constipation, diarrhea, bright red blood per rectum, or melena. Her appetite is excellent. GENITOURINARY: Patient has some stress urinary incontinence with severe cough, though reports that this has also improved since her cough has resolved. No dysuria or hematuria. ENDOCRINE: No heat or cold intolerance. Her energy levels are quite good ever since starting Taxotere. PSYCHIATRIC: She denies any severe depression, severe anxiety, suicidal or homicidal ideation. Rosa Elena tells me that she is quite happy with the way things are going for her. MUSCULOSKELETAL: Patient had one lower back spasm last night. She has not had any in a couple of months. She took a dose of Valium, which helped alleviate this. She has only occasional degenerative-type pains. SKIN: She denies any rash. No generalized pruritus. Last week, she reported some redness over her hand a couple of weeks ago, those this then resolved. She has not had any recurrence. NEUROLOGIC: She denies any headache, seizure activity, numbness, or tingling. Remainder of her 12-point review of systems is performed today and is otherwise negative. PHYSICAL EXAMINATION VITAL SIGNS: T 97.0, P 73, R 16, BP 148/78, oxygen 95% on 3L O2 nasal cannula. Currently rates pain level at "3/10." Currently rates fatigue level at "1- 2/10." GENERAL: This is a pleasant 73-year old woman who appears to be a well- developed, well-nourished woman in no acute distress. HEAD: Normocephalic, atraumatic. Patient has some mild gonzales facies related to daily corticosteroid use. EYES: Sclerae anicteric. ENT, MOUTH: Slightly dry mucous membranes. No mucositis. NECK: Supple. No lymphadenopathy. No JVD. LUNGS: Diminished breath sounds bilaterally. No wheezes, rales, or rhonchi. Respiratory effort is normal. Expiratory phase is slightly prolonged. CARDIOVASCULAR: Regular rate and rhythm. No murmurs. NEUROLOGIC: Patient is awake, alert, and oriented x3. No focal or sensory deficits. PSYCHIATRIC: Mood and affect are appropriate. EXTREMITIES: No edema. No clubbing or cyanosis. MUSCULOSKELETAL: No pain to palpation of the bony spinous processes. Gait is stable. DERM: No rash. No petechiae or purpura. Patient does have some mildly excessive dryness noted over some of her knuckles on her left hand. There is no erythema and no signs of rash. LABORATORY CBC today: WBC 1.9, ANC 1.3, hemoglobin 11.0, hematocrit 33.7%, platelets 164,000. CBC on 03/20/19 revealed ANC down to 0.78 with total WBC of 1.3. IMAGING CT chest, abdomen and pelvis with and without contrast at [facility] on January 08, 2019: The large right upper lobe mass has increased in size. This now measures 10.5 x 5.8 x 8.2 cm and previously this measured 7.2 x 4.5 x 5.9 cm. The mass effect on the superior vena cava has also increased in the interim. Spiculated nodule, left upper lobe, appears relatively changed. Left adrenal nodule slightly increased in size. Additional chronic findings as described. Left adrenal nodule appears slightly increased, now measuring 15 x 6 mm as opposed to 6 x 9 mm. The right adrenal gland appears unremarkable. This image was compared to October 12, 2018, image. Lumbar spine, three views, at [facility] on February 04, 2019: 1. Slight levocurvature centered in the mid lumbar spine. 2. Multi-level degenerative disk disease, most pronounced at L4-5 and L5-S1. 3. No evidence of acute compression deformity. Prior vertebroplasty changes are seen at T11. IMPRESSION AND PLAN This is a pleasant 73-year old woman with stage IV metastatic, poorly differentiated lung cancer. She completed six cycles of carboplatin, pemetrexed, and pembrolizumab from June 14, 2018, through September 28, 2018. She then began maintenance pemetrexed and pembrolizumab on October 25, 2018. She received her last dose on December 25, 2018. She had a recent CT chest, abdomen, and pelvis on January 08, 2019, which did reveal some disease progression with an increase in size of the large right upper lobe mass as well as a very slight increase in size of the left adrenal nodule. Plan is for her to proceed with single-agent chemotherapy with Taxotere. She initiated Cycle #1 on 01/29/19. She received Neulasta support with that cycle only. A couple of weeks later, she initiated radiotherapy, and we have since held Neulasta. Her counts have been in good range. She did have leukopenia for some time, likely related to daily corticosteroid use with her low-dose 4 mg daily dexamethasone. She is due to complete radiotherapy on 04/03/19. She has received three cycles of single-agent Taxotere, with cycle #3 last given on 03/12/19. We have continued to hold Neulasta, though yesterday when in for repeat CBC, she did have a decrease in her white blood cell count, and ANC yesterday was down to 0.78. She was feeling quite well and was asymptomatic. We did administer Neupogen 480 mcg yesterday. Today, her ANC has improved up to 1.3 and she continues to feel quite well and is asymptomatic, afebrile, nontoxic appearing. She had onset of a lower back spasm last night, which I believe is attributable to Neupogen. This also occurred after she received Neulasta but this time it wasn't as intense. She has Valium to use p.r.n., and one dose late last night/early this am helped quite a bit. She continues to tell me that her cough is practically nonexistent and she is feeling excellent. She has not had any gastrointestinal distress or symptomatology. Energy level remains quite good. 1. Stage IV lung cancer: Recently initiated single-agent Taxotere. She received Cycle #3 with Taxotere last week, on 03/12/19. She will continue with Taxotere every 21 days. 2. Neutropenia, improved today: ANC today is up to 1.3, yesterday was 0.78. She received Neupogen 480 mcg yesterday. In efforts to try to decrease side effects and administer GCSF only as needed, and since her vitals are in great range today and she is feeling well, we will stop on any further Neupogen for now. We reviewed neutropenic precautions, and she and her daughter are both well versed on when to call our office, to include any signs of infection or for any temperature greater than 100.5 degrees Fahrenheit. 3. She will continue on her low-dose dexamethasone 4 mg tablets every day. This did help her cough significantly, as well as her energy. She is aware that we would like to start to taper this, though we may not start that until she completes radiotherapy. She has antitussives at home to include Tessalon Perles and hydrocodone elixir to use as needed. 4. Derm: She is aware that Taxotere may cause a rash. Currently no signs of rash, but she will inform us if this occurs. 5. Patient will return to the clinic as scheduled for weekly labs, and as scheduled for followup with Debbie Patrick NP, on 04/02/19. She may certainly follow up sooner if needed. DUTCH
[2019-04-02] MEDS: HEPARIN FLSH (PORT) 500 UN/5ML IVP PRN (12:28)
[2019-04-02] MEDS: LIDOCAINE/SOD BICARB 8.4% SYR ID PRN (12:28)
[2019-04-02] MEDS: NS(*) 0.9% 250 ML BAG 250 ML IVPB PRN (12:29)
[2019-04-02 14:10] VITALS: BP 155/76
--- NOTE | 2019-04-02 16:45 | ONCOLOGY FOLLOW UP NOTE ---
EVENT DATE: April 02, 2019 CHIEF COMPLAINT Followup for metastatic non-small cell lung cancer. HISTORY OF PRESENT ILLNESS Patient is a 73-year-old female who was seen today for consideration of cycle #4 of Taxotere. She completed her radiation to the right hilum today and is grateful for that. Overall, she feels well. She does have persistent fatigue, which occurs "every day at 5:00," but feels she is managing. Her cough has completely resolved on low-dose dexamethasone. She does have some slightly dry cracking, peeling hands, as well as an erythematous area on her back from the radiation. She denies any peripheral neuropathy. ONCOLOGY HISTORY The patient developed significant cough in April 2018. She has a history of moderate COPD and chronic hypoxemia, requiring supplemental oxygen for the past few years. CT of the chest showed a right upper lobe mass. Bronchoscopy and EBUS on May 18, 2018, revealed a poorly differentiated non-small cell carcinoma with a subcarinal lymph node and right paratracheal lymph node, as well as endobronchial biopsy of the right upper lobe mass. PET/CT on May 28, 2018, revealed a dense, hypermetabolic right upper lobe pulmonary mass confluent with the superior right hilum and extending toward the subcarinal space, but without discrete/separate adenopathy. There were several irregular left upper lobe pulmonary nodules, the largest hypermetabolic, but all three consistent with metastatic disease. Patient began palliative treatment with carboplatin, pemetrexed, and pembrolizumab on June 14, 2018. Completed six cycles of carboplatin, pemetrexed, and pembrolizumab from June 14, 2018, through September 28, 2018. Began maintenance pemetrexed and pembrolizumab from October 25, 2018, through December 25, 2018. CT chest, abdomen, and pelvis on January 08, 2019, revealed some disease progression with an increase in the size of the large right upper lobe mass as well as a slight increase in the size of the left adrenal nodule. Began single-agent Taxotere on 01/29/19. Completed radiation to the right hilum from 02/12/19 through 04/02/19. PAST MEDICAL HISTORY 1. COPD. 2. History of smoking; patient quit in 2011. 3. Gastroesophageal reflux disease. 4. Macular degeneration, right eye. 5. Non-small cell lung cancer, April 2018. SOCIAL HISTORY The patient is . She has four grown children and lives with her daughter here in [place]. She has a history of heavy smoking, but quit in 2011. There is no history of alcohol or illicit drug use. FAMILY HISTORY There is history of heart disease and hypertension as well as Alzheimer disease. There are no known cancers in the family. MEDICATIONS 1. Citalopram. 2. Oxybutynin. 3. Omeprazole. 4. Potassium 20 mEq daily. 5. Hydrocodone elixir 7.5/325 mg/15 mL, 5 to 10 mL q.4 to 5 hours p.r.n. cough. 6. Advair 250/50 Diskus. 7. Dexamethasone 4 mg daily. ALLERGIES PENICILLIN. REVIEW OF SYSTEMS A 12-point review of systems is performed and is negative except as stated above. PHYSICAL EXAMINATION VITAL SIGNS: Weight 69.9 kg. BP 155/76, P 63, R 18, temp 97.0, O2 sat 98% on 3L per nasal cannula. GENERAL: Patient is a well-developed, well-nourished female in no acute distress. HEAD: Normocephalic, atraumatic. She does have some evidence of mood face from steroids. EYES: Sclerae anicteric. MOUTH: Moist mucous membranes. No lesions. NECK: Supple. No palpable adenopathy. LUNGS: Diminished bilaterally. No wheezing noted. CARDIOVASCULAR: Heart rate regular, 63 per minute. EXTREMITIES: No edema. NEUROLOGIC: Nonfocal. DERMATOLOGY: Dry, slightly cracking/peeling hands bilaterally. There is an area of erythema over her mid back from radiation. LABORATORY CBC today reveals a WBC of 9.8, ANC of 5.0, hemoglobin 11.6, hematocrit 34.8, platelets 224,000. CMP is within normal limits except for a slightly elevated BUN of 24. IMPRESSION The patient is a 73-year-old female with stage IV metastatic, poorly differentiated lung cancer. She completed six cycles of carboplatin, pemetrexed, and pembrolizumab from June 14, 2018, through September 28, 2018. Completed maintenance pemetrexed and pembrolizumab from 10/25/18 through 12/25/18. Disease progression noted on scans in December 2018. Began single-agent Taxotere on 01/29/19. Completed radiation to the right hilum from 02/12/19 through 04/02/19. PLAN 1. Stage IV lung cancer. Cycle #4 of Taxotere. She is tolerating this well and has had no issues with peripheral neuropathy or neutropenia. 2. Cough. Completely resolved on dexamethasone 4 mg daily. She does understand that this will not be a long-term medication, but is happy that her cough is controlled as she has had no luck with Tessalon Perles or hydrocodone elixir. She will be reevaluated again in three weeks. 3. Derm. Dry peeling skin on her hands. Recommended increased moisturizing. She also has an area of erythema on her mid back from radiation, and her daughter is helping apply creams to that. 4. Fatigue. She does have ongoing fatigue beginning at 5:00 every day, but feels she is managing. Hemoglobin today is 11.6. 5. Follow up in three weeks for cycle #5 of treatment, earlier if there is a problem. MTDD
[2019-04-09 10:30] VITALS: BP 146/96
[2019-04-09 10:41] LABS: PLATELET COUNT, AUTOMATED 204 K/uL (150-450)
[2019-04-16 10:29] VITALS: BP 162/90
[2019-04-16 10:42] LABS: PLATELET COUNT, AUTOMATED 165 K/uL (150-450)
[2019-04-23 11:02] VITALS: BP 172/87
[2019-04-23] MEDS: LIDOCAINE/SOD BICARB 8.4% SYR ID PRN (11:14)
[2019-04-23] MEDS: NS(*) 0.9% 250 ML BAG 250 ML IVPB PRN (11:14)
[2019-04-23] MEDS: HEPARIN FLSH (PORT) 500 UN/5ML IVP PRN ×2 (11:14→13:22)
[2019-04-23 13:20] VITALS: BP 145/81
[2019-04-30 10:37] VITALS: BP 133/80
[2019-04-30 10:40] LABS: PLATELET COUNT, AUTOMATED 195 K/uL (150-450)
[2019-04-30] MEDS: HEPARIN FLSH (PORT) 500 UN/5ML IVP PRN (14:47)
[2019-04-30] MEDS: LIDOCAINE/SOD BICARB 8.4% SYR ID PRN (14:47)
--- NOTE | 2019-04-30 17:28 | ONCOLOGY FOLLOW UP NOTE ---
EVENT DATE: April 30, 2019 CHIEF COMPLAINT Followup for metastatic non-small cell lung cancer; increased shortness of breath and fatigue. HISTORY OF PRESENT ILLNESS Patient is a 73-year-old female who was seen today one week after receiving cycle #5 of Taxotere. She presents today with more fatigue "than usual" and is now noting fatigue in the morning. She also has had more shortness of breath, especially dyspnea on exertion. She continues with fairly significant facial edema. We spent time discussing dose reduction with cycle #6 of Taxotere. She will also receive Neulasta if indicated, but we will assess this once we see if the dose reduction makes a difference. ONCOLOGY HISTORY The patient developed significant cough in April 2018. She has a history of moderate COPD and chronic hypoxemia, requiring supplemental oxygen for the past few years. CT of the chest showed a right upper lobe mass. Bronchoscopy and EBUS on May 18, 2018, revealed a poorly differentiated non-small cell carcinoma with a subcarinal lymph node and right paratracheal lymph node, as well as endobronchial biopsy of the right upper lobe mass. PET/CT on May 28, 2018, revealed a dense, hypermetabolic right upper lobe pulmonary mass confluent with the superior right hilum and extending toward the subcarinal space, but without discrete/separate adenopathy. There were several irregular left upper lobe pulmonary nodules, the largest hypermetabolic, but all three consistent with metastatic disease. Patient began palliative treatment with carboplatin, pemetrexed, and pembrolizumab on June 14, 2018. Completed six cycles of carboplatin, pemetrexed, and pembrolizumab from June 14, 2018, through September 28, 2018. Began maintenance pemetrexed and pembrolizumab from October 25, 2018, through December 25, 2018. CT chest, abdomen, and pelvis on January 08, 2019, revealed some disease progression with an increase in the size of the large right upper lobe mass as well as a slight increase in the size of the left adrenal nodule. Began single-agent Taxotere on 01/29/19. Completed radiation to the right hilum from 02/12/19 through 04/02/19. PAST MEDICAL HISTORY 1. COPD. 2. History of smoking; patient quit in 2011. 3. Gastroesophageal reflux disease. 4. Macular degeneration, right eye. 5. Non-small cell lung cancer, April 2018. SOCIAL HISTORY The patient is . She has four grown children and lives with her daughter here in [place]. She has a history of heavy smoking, but quit in 2011. There is no history of alcohol or illicit drug use. FAMILY HISTORY There is history of heart disease and hypertension as well as Alzheimer disease. There are no known cancers in the family. MEDICATIONS 1. Citalopram. 2. Oxybutynin. 3. Omeprazole. 4. Potassium 20 mEq daily. 5. Hydrocodone elixir 7.5/325 mg/15 mL, 5 to 10 mL q.4 to 5 hours p.r.n. cough. 6. Advair 250/50 Diskus. 7. Dexamethasone 4 mg daily. ALLERGIES PENICILLIN. REVIEW OF SYSTEMS A 12-point review of systems is performed and is negative except as stated above. PHYSICAL EXAMINATION VITAL SIGNS: BP 133/80, P 88, R 16, temp 96.7, O2 sat 97%. GENERAL: Patient is a well-developed, but fatigued-appearing female in no acute distress. HEAD: Normocephalic, atraumatic. Cushingoid face noted. EYES: Sclerae anicteric. MOUTH: Slightly dry mucous membranes. NECK: Supple. None palpable bilaterally. LUNGS: Diminished, but clear. No wheezing noted. CARDIOVASCULAR: Heart rate regular, 88 per minute. EXTREMITIES: Trace pretibial edema bilaterally. NEUROLOGIC: Nonfocal. LABORATORY CBC today reveals a WBC of 0.8, ANC of 0.5, hemoglobin 10.6, hematocrit 31.4, platelets 195,000. CMP shows a slightly decreased potassium of 3.3, BUN of 20. IMPRESSION The patient is a 73-year-old female with stage IV, metastatic, poorly differentiated lung cancer. She completed six cycles of carboplatin, pemetrexed, and pembrolizumab from June 14, 2018, through September 28, 2018. Completed maintenance pemetrexed and pembrolizumab from 10/25/18 through 12/25/18. Disease progression noted on scans in December 2018. Began single-agent Taxotere on 01/29/19. Completed radiation to the right hilum from 02/12/19 through 04/02/19. PLAN 1. Stage IV lung cancer. Patient is seen one week after receiving cycle #5 of Taxotere. She has noted much more fatigue as well as shortness of breath. We discussed a possible dose reduction of 20% with her next cycle of treatment. 2. Shortness of breath. She has noted increased shortness of breath and dyspnea on exertion. She continues on oxygen 3L per nasal cannula. She has been on dexamethasone 2 mg daily for cough, which has controlled this. CT of the chest will be done today to rule out evidence of progression or superior vena cava syndrome. 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 3. Fatigue. Ongoing. 4. Neutropenia. ANC is 0.5. We reviewed neutropenia precautions. As she has been heavily pretreated, she will receive Neulasta 6 mg subcutaneously today. Consideration will be given to more Neulasta pending results from dose reduction. 5. Follow up on 05/14/19 for cycle #6 of treatment to be given at a 20% dose reduction. MTDD
--- NOTE | 2019-04-30 17:44 | RADIOLOGY IMAGING REPORT ---
[place] [facility] [place] Margarita Smith : 1945 MR: [id number] V: [id number] EXAM DATE: ORDERING PHYSICIAN: MIK HSIEH TECHNOLOGIST: Location: [facility] Patient: Margarita Smith : 1945 Visit/Account:[id number] Date of Sevice: 04/30/2019 CT CHEST (CONTRAST) HISTORY: History: Cancer with increasing shortness of breath and facial edema. TECHNIQUE: CT chest with intravenous contrast. One of the following dose optimization techniques was utilized in the performance of this exam: Autom ated exposure control; adjustment of the mA and/or kV according to the patient's size; or use of an i terative reconstruction technique. Specific details can be referenced in the facility's radiology C T exam operational policy. CONTRAST: 75 mL Isovue-370. COMPARISON: January 08, 2019. FINDINGS: Heart/vessels: Right chest wall port catheter with tip at the cavoatrial junction. The distal right internal jugular vein appears to be near completely decompressed and possibly stenotic surrounding t he right chest wall port catheter and superior to the catheter, new since prior CT. Mediastinum: Small hiatal hernia. Otherwise negative. Lymph nodes: No lymphadenopathy. Lungs/pleura: Apparent interval right upper lobectomy versus significantly decreased size of right s uprahilar soft tissue. There is mild right suprahilar soft tissue which is likely related to treatme nt changes or mild residual disease. No enhancing soft tissue to suggest residual/recurrent. Linear nodular soft tissue within the left upper lobe is overall decreased in size since prior exam, favored related to evolving scarring, possibly related to treatment changes. Subtle groundglass opacities within the lower lobes at the bases, left greater than right, not seen o n prior exam Background of moderate emphysematous change. No new or enlarging nodules identified. Visualized upper abdomen: Gallbladder surgically absent. Decreased thickening of the left adrenal g land Otherwise negative. Bones/soft tissues: No acute or concerning osseous abnormality. Stable kyphoplasty changes within t he lower thoracic spine. Intramuscular lipoma within the right infraspinatus muscle IMPRESSION: 1. Interval apparent right upper lobectomy versus significantly decreased size of linear right supra hilar soft tissue. 2. The distal right internal jugular vein appears to be near completely decompressed and possibly st rictured surrounding and superior to the right chest wall port catheter is a new finding since prior exam. Recommend correlation for radiation therapy. Theoretically, findings could be related to hypo volemia. 3. Nonspecific linear nodularity within the left upper lobe appears grossly decreased in is favored related to evolving infectious/inflammatory process or treatment changes. 4. Decreased nodular thickening of the left adrenal gland. 5. Interval development of subtle groundglass opacities within the bilateral lower lobes favored inf ectious/inflammatory in etiology. Report Dictated By: Sean Leung MD at 04/30/2019 5:25 PM Report E-Signed By: Sean Leung MD at 04/30/2019 5:39 PM WSN:[email or web address]
[2019-05-07 09:49] VITALS: BP 121/77
[2019-05-07 10:03] LABS: PLATELET COUNT, AUTOMATED 185 K/uL (150-450)
[2019-05-07 10:20] VITALS: BP 121/77
[2019-05-07] MEDS: LIDOCAINE/SOD BICARB 8.4% SYR ID PRN (10:24)
[2019-05-07] MEDS: HEPARIN FLSH (PORT) 500 UN/5ML IVP PRN (10:45)
--- NOTE | 2019-05-07 16:58 | ONCOLOGY FOLLOW UP NOTE ---
EVENT DATE: May 07, 2019 CHIEF COMPLAINT Followup for metastatic non-small cell lung cancer. HISTORY OF PRESENT ILLNESS Patient is a 73-year-old female who was seen today in followup. She completed her fifth cycle of Taxotere on 04/23/19. Since that time, she has been increasingly fatigued, and they note she is sleeping more. She also has had more shortness of breath, especially dyspnea on exertion. 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 CT scan on 04/30/19 showed the possibility of superior vena cava syndrome. However, on review of ultrasound, this showed no evidence of DVT, and all veins were open. We had previously discussed a dose reduction of the Taxotere. She is also requiring Neulasta at this time. ONCOLOGY HISTORY The patient developed significant cough in April 2018. She has a history of moderate COPD and chronic hypoxemia, requiring supplemental oxygen for the past few years. CT of the chest showed a right upper lobe mass. Bronchoscopy and EBUS on May 18, 2018, revealed a poorly differentiated non-small cell carcinoma with a subcarinal lymph node and right paratracheal lymph node, as well as endobronchial biopsy of the right upper lobe mass. PET/CT on May 28, 2018, revealed a dense, hypermetabolic right upper lobe pulmonary mass confluent with the superior right hilum and extending toward the subcarinal space, but without discrete/separate adenopathy. There were several irregular left upper lobe pulmonary nodules, the largest hypermetabolic, but all three consistent with metastatic disease. Completed six cycles of carboplatin, pemetrexed, and pembrolizumab from June 14, 2018, through September 28, 2018. Began maintenance pemetrexed and pembrolizumab from October 25, 2018, through December 25, 2018. CT chest, abdomen, and pelvis on January 08, 2019, revealed some disease progression with an increase in the size of the large right upper lobe mass as well as a slight increase in the size of the left adrenal nodule. Began single-agent Taxotere on 01/29/19. Completed radiation to the right hilum from 02/12/19 through 04/02/19. PAST MEDICAL HISTORY 1. COPD. 2. History of smoking; patient quit in 2011. 3. Gastroesophageal reflux disease. 4. Macular degeneration, right eye. 5. Non-small cell lung cancer, April 2018. SOCIAL HISTORY The patient is . She has four grown children and lives with her daughter here in [place]. She has a history of heavy smoking, but quit in 2011. There is no history of alcohol or illicit drug use. FAMILY HISTORY There is history of heart disease and hypertension as well as Alzheimer disease. There are no known cancers in the family. MEDICATIONS 1. Citalopram. 2. Oxybutynin. 3. Omeprazole. 4. Potassium 20 mEq daily. 5. Hydrocodone elixir 7.5/325 mg/15 mL, 5 to 10 mL q.4 to 5 hours p.r.n. cough. 6. Advair 250/50 Diskus. 7. Dexamethasone 4 mg daily. ALLERGIES PENICILLIN. REVIEW OF SYSTEMS A 12-point review of systems is performed and is negative except as stated above. PHYSICAL EXAMINATION VITAL SIGNS: BP 121/77, pulse 100, respirations 17, temp 98.1, O2 sat 78% on arrival, but increased to 95% after resting. GENERAL: Patient is a well-developed, well-nourished, but fatigued-appearing female in no acute distress. HEAD: Normocephalic, atraumatic. Cushingoid face. EYES: Sclerae anicteric. MOUTH: Moist mucous membranes. NECK: Supple. No palpable adenopathy. LUNGS: Diminished bilaterally. No wheezing noted. CARDIOVASCULAR: Heart rate regular, 100 per minute. EXTREMITIES: Trace pretibial edema bilaterally. NEUROLOGIC: Nonfocal. LABORATORY CBC today reveals a WBC of 20.7, ANC of 20.0, hemoglobin 10.2, hematocrit 31.3, platelets 185,000. CMP is within normal limits except for a slightly low potassium of 3.2 and alkaline phosphatase of 170. IMPRESSION The patient is a 73-year-old female with stage IV, metastatic, poorly differentiated lung cancer. She completed six cycles of carboplatin, pemetrexed, and pembrolizumab from June 14, 2018, through September 28, 2018. Completed maintenance pemetrexed and pembrolizumab from 10/25/18 through 12/25/18. Disease progression noted on scans in December 2018. Began single-agent Taxotere on 01/29/19. Completed radiation to the right hilum from 02/12/19 through 04/02/19. PLAN 1. Stage IV lung cancer. Patient is seen two weeks after receiving cycle #5 of Taxotere. Due to her ongoing and increasing fatigue, I discussed the possibility of a dose reduction of the Taxotere with her next cycle. I have also reviewed this with Dr. Murcia, and it was decided that we would hold cycle #6. She will follow up with Dr. Murcia on 05/16/19. She is hopeful for a "drug holiday." 2. Fatigue. As above, ongoing. Cycle #6 of Taxotere will be held to allow recovery. 3. Leukocytosis. Related to Neulasta. She has no evidence of infection. 4. Shortness of breath. Ongoing with increased dyspnea on exertion. She remains on oxygen 3L per nasal cannula. She also continues on dexamethasone 2 mg daily for cough. 5. Follow up on 05/16/[address] Murcia for continued care. MTDD
--- NOTE | 2019-05-09 16:00 | NUR ---
Pt's daughter called in very concerned about Rosa Elena (Margarita). Daughter stated that her Mother had been in bed all day, has had on-going shortness of breath over the past week (for which she has seen Debbie Patrick NP) earlier in the week. Daughter placed pulse oximeter on patient at home and got a reading of 73% on one hand, and 83% on the other hand, all with nasal canula in place and on continuous (not intermittent) flow. Daughter states that when Rosa Elena tries to sit up and get out of bed, she immediately becomes very dizzy and nauseated. Daughter also reports patient having a headache that has been ongoing all day, with no relieve from OTC pain meds or position changes. Pt hasn't had anything to eat since the night before. When asked about chest pain, daughter mentioned she has had a little bit in the area directly under her port. Daughter did not have a BP cuff at home to check a BP. Daughter instructed to call 911 right away, since it did not seem safe for family to transport the patient to the ER. Report given to Debbie Patrick NP. Debbie Patrick NP contacted the ER and gave report to Jese Yip NP prior to patient arrival.
[2019-05-21 14:59] VITALS: BP 136/85
--- NOTE | 2019-05-21 16:33 | ONCOLOGY FOLLOW UP NOTE ---
EVENT DATE: May 21, 2019 CHIEF COMPLAINT Followup for metastatic non-small cell lung cancer. HISTORY OF PRESENT ILLNESS Patient is a 73-year-old female who was seen today in followup after recent hospitalization. She was admitted from 05/09/19 through 05/16/19 with a community-acquired pneumonia. Oxygen needs increased to 15L, but she is now back to 5L high-flow oxygen per nasal cannula. She is receiving home physical therapy. She is using a walker intermittently and generally feels much improved. ONCOLOGY HISTORY The patient developed significant cough in April 2018. She has a history of moderate COPD and chronic hypoxemia, requiring supplemental oxygen for the past few years. CT of the chest showed a right upper lobe mass. Bronchoscopy and EBUS on May 18, 2018, revealed a poorly differentiated non-small cell carcinoma with a subcarinal lymph node and right paratracheal lymph node, as well as endobronchial biopsy of the right upper lobe mass. PET/CT on May 28, 2018, revealed a dense, hypermetabolic right upper lobe pulmonary mass confluent with the superior right hilum and extending toward the subcarinal space, but without discrete/separate adenopathy. There were several irregular left upper lobe pulmonary nodules, the largest hypermetabolic, but all three consistent with metastatic disease. Completed six cycles of carboplatin, pemetrexed, and pembrolizumab from June 14, 2018, through September 28, 2018. Began maintenance pemetrexed and pembrolizumab from October 25, 2018, through December 25, 2018. CT chest, abdomen, and pelvis on January 08, 2019, revealed some disease progression with an increase in the size of the large right upper lobe mass as well as a slight increase in the size of the left adrenal nodule. Began single-agent Taxotere on 01/29/19. Completed radiation to the right hilum from 02/12/19 through 04/02/19. Taxotere held on 04/23/19 due to toxicity. PAST MEDICAL HISTORY 1. COPD. 2. History of smoking; patient quit in 2011. 3. Gastroesophageal reflux disease. 4. Macular degeneration, right eye. 5. Non-small cell lung cancer, April 2018. SOCIAL HISTORY The patient is . She has four grown children and lives with her daughter here in [place]. She has a history of heavy smoking, but quit in 2011. There is no history of alcohol or illicit drug use. FAMILY HISTORY There is history of heart disease and hypertension as well as Alzheimer disease. There are no known cancers in the family. MEDICATIONS 1. Citalopram 40 mg daily. 2. Oxybutynin. 3. Hydrocodone elixir 7.5/325 mg/15 mL, 5 to 10 mL q.4 to 5 hours p.r.n. cough. 4. Dexamethasone 2 mg daily. ALLERGIES PENICILLIN. REVIEW OF SYSTEMS A 12-point review of systems is performed and is negative except as stated above. PHYSICAL EXAMINATION VITAL SIGNS: Weight 152 pounds. BP 136/85, P 94, R 16, temp 97.6, O2 sat 94% on 5L per nasal cannula. GENERAL: Patient is a well-developed, well-nourished female in no acute distress. HEAD: Normocephalic, atraumatic. Cushingoid face remains. EYES: Sclerae anicteric. MOUTH: Slightly dry mucous membranes. No lesions. NECK: Supple. No palpable adenopathy. LUNGS: Slightly diminished bilaterally, but clear. CARDIOVASCULAR: Heart rate regular, 94 per minute. EXTREMITIES: Trace to 1+ pretibial edema bilaterally. NEUROLOGIC: Nonfocal. LABORATORY No lab today. IMPRESSION The patient is a 73-year-old female with stage IV, metastatic, poorly differentiated lung cancer. She completed six cycles of carboplatin, pemetrexed, and pembrolizumab from June 14, 2018, through September 28, 2018. Completed maintenance pemetrexed and pembrolizumab from 10/25/18 through 12/25/18. Disease progression noted on scans in December 2018. Began single-agent Taxotere on 01/29/19. Completed radiation to the right hilum from 02/12/19 through 04/02/19. Taxotere held on 04/23/19 due to toxicity. PLAN 1. Stage IV lung cancer. Currently, chemotherapy is on hold. Patient is anxious to "get started again." She has a followup appointment with Dr. Murcia next week. We had previously discussed a "drug holiday" as the toxicity was increasing with Taxotere. She may require a CT scan before starting new treatment. 2. Community-acquired pneumonia. Now resolved. Patient has completed IV antibiotics and remains afebrile. 3. Shortness of breath. Much improved. She is now on oxygen 5L per nasal cannula, previously on 3L. She is hopeful to be able to decrease this. She will continue dexamethasone 2 mg daily for cough. 4. Followup on 05/29/19 for continued care. DUTCH
--- NOTE | 2019-05-27 11:29 | NUR ---
LOI provided a new FMLA form completed for the pt's daughter, Wiliam. Will give to Wiliam in person on 05/28/19.
[2019-05-28 09:57] VITALS: BP 139/84
[2019-05-28] MEDS: LIDOCAINE/SOD BICARB 8.4% SYR ID PRN (10:05)
[2019-05-28] MEDS: HEPARIN FLSH (PORT) 500 UN/5ML IVP PRN (11:50)
[~2019-05-29] VITALS: Ht 151.1 cm; Wt 70.0 kg
[~2019-05-29 10:19] MED LIST changes: +ALTEPLASE RECOMB 2 MG VIAL IVP PRN; +DEXAMETHASONE SOD 20MG/5 ML VL IVP PRN; +DEXTROSE 5%(*) 100 ML BAG 100 ML IVPB PRN; +DOCETAXEL IVPB ONE; +FILGRASTIM 480 MCG/0.8 ML SYRINGE SC ONE; -IOPAMIDOL 76% 100 ML INFUS BTL 100 ML ONE; +NS 0.9% IVPB ONE; +NS(*) 0.9% 100 ML BAG 100 ML IVPB PRN; +PEGFILGRASTIM 6 MG/0.6 ML SYR SUBQ ONE; +WATER FOR INJ,STERILE 20 ML IVP PRN
[2019-05-29 10:36] VITALS: BP 139/80
[2019-05-29] MEDS: HEPARIN FLSH (PORT) 500 UN/5ML IVP PRN (12:23)
[2019-05-29] MEDS: LIDOCAINE/SOD BICARB 8.4% SYR ID PRN (12:23)
--- NOTE | 2019-05-29 15:28 | ONCOLOGY FOLLOW UP NOTE ---
EVENT DATE: May 29, 2019 REASON FOR FOLLOWUP High-grade lung carcinoma, stage IV. INTERIM HISTORY Margarita returns to clinic for a followup visit today. She is accompanied by her daughter. She has been closely followed in this clinic for quite some time since our last visit. Until recently, she had continued on palliative Taxotere with reasonable tolerance. Unfortunately, she was hospitalized for community- acquired pneumonia and has subsequently been discharged with home health, to include physical therapy. Margarita reports that she is feeling much better. She does report some fatigue and ongoing hair loss. She feels short of breath with exertion, but her oxygen requirement has gone down substantially since her discharge. She reports no new pain. Her appetite is excellent. She has had no abdominal pain or recent changes in bowel or bladder habits. She has had a followup CT scan done, and she is here to review the results. REVIEW OF SYSTEMS Otherwise negative, and all systems are reviewed. ONCOLOGY HISTORY Stage IV high-grade lung carcinoma. 1. Patient developed cough in April 2018. CT scan shows right upper lobe mass. 2. Bronchoscopy and EUS on May 18, 2018: Poorly differentiated non-small cell carcinoma with subcarinal lymph node and right paratracheal lymph node positive as well as endobronchial biopsy of right upper lobe mass. 3. CT/PET on May 28, 2018: Dense, hypermetabolic right upper lobe pulmonary mass confluent with superior right hilum and extending toward the subcarinal space, but without discrete/separate adenopathy. Several irregular left upper lobe pulmonary nodules, the largest hypermetabolic, but all three consistent with metastatic disease. 4. June 14, 2018: Patient begins palliative chemotherapy with carboplatin, pemetrexed, and pembrolizumab. 5. Patient completes six cycles of carboplatin, pemetrexed, and pembrolizumab on September 28, 2018, with disease response. 6. Maintenance pemetrexed and pembrolizumab are initiated on October 25, 2018. 7. Patient continues maintenance therapy through December 25, 2018. 8. 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 9. Initiation of single-agent Taxotere on January 29, 2019. 10. April 2019: Hospitalization for community-acquired pneumonia. 11. May 28, 2019: CT scan of the chest, abdomen, and pelvis reveals suprahilar soft tissue density in the mediastinum on the right without significant change. There is irregular/spiculated left upper lobe nodule that is grossly stable compared to December study. There are some additional pleural parenchymal densities anteromedial left upper lobe that had increased in December, but are stable since May 01. There is some increasing reticular infiltrate in the right upper lung and increasing air space consolidation in the right middle lobe. There are hypo-enhancing liver foci which may be benign, but are indeterminate. There is no definite metastatic disease outside the chest. The left adrenal nodule is less evident, with mild thickening of the posterior limb. PAST MEDICAL HISTORY 1. COPD. 2. History of smoking, quit in 2011. 3. GERD. 4. Macular degeneration in the right eye. 5. Non-small cell lung cancer as above. CURRENT MEDICATIONS 1. Citalopram. 2. Oxybutynin. 3. Omeprazole. 4. Potassium. 5. Hydrocodone elixir. 6. Advair Diskus. 7. Low-dose dexamethasone p.o. ALLERGIES PENICILLIN. SOCIAL HISTORY The patient is . She has a history of heavy smoking, quit in 2011. There is no history of illicit drug use or alcohol abuse. FAMILY HISTORY There is a history of heart disease and hypertension as well as Alzheimer disease. There are no known malignancies in the family. VITAL SIGNS Temperature is 97.2, blood pressure 139/80, heart rate is 69, respirations 16, oxygen saturation is 96% on 4L nasal cannula. The weight is 70 kg. PHYSICAL EXAMINATION GENERAL: The patient is alert and oriented times three, no apparent distress, sitting in the exam room chair. She is in good spirits and quite interactive. HEENT: Anicteric sclerae and diffuse alopecia. She is wearing oxygen by nasal cannula. NEUROLOGIC: Grossly nonfocal, and her gait is normal. EXTREMITIES: Some slight edema, but no tenderness to palpation or erythema. SKIN: No concerning rash or lesion. LABORATORY STUDIES Reviewed per the [facility] record. IMAGING Please see Oncology History. ASSESSMENT AND PLAN Stage IV high-grade lung carcinoma. I had a good visit with Jacque and her daughter today. We were joined for the entirety of today's visit by Debbie Patrick, Nurse Practitioner. We spent time reviewing her recent experience with palliative Taxotere. Essential, Peg states that the Taxotere was not particular problematic, toxicity was reasonable, and she felt that she had been doing pretty well on it. We spent time reviewing her hospitalization with community- acquired pneumonia and the rather rapid turnaround that she has had with appropriate therapy, having returned home now with physical therapy and home health. Her oxygen requirement has diminished substantially. She has no concerning signs or symptoms today other than above noted. We spent time discussing options moving forward. She does have the option of continuing with Taxotere, but it was starting to cause some cumulative toxicity. With her recent acute illness, I do think it would be reasonable to give her another one- to two-week break and to check [id number] for molecular profiling in the meantime. We reviewed that prior tissue was too scant, and there was assay failure in assessment for molecular profiling studies. There was agreement today that we will wait for additional results, so we will be in contact with her when [id number] results are available. All questions answered today. I will plan to see her back in the next month in my [facility] clinic. DUTCH
== END 2019-06-09 ==
LOC: ONC 10:19
PROVIDERS: ATTEND Internal Medicine Medical Oncology
DX: Z51.11 Encounter for antineoplastic chemotherapy (principal); C34.11 Malignant neoplasm of upper lobe, right bronchus or lung; J44.9 Chronic obstructive pulmonary disease, unspecified; H21.23 Degeneration of iris (pigmentary); D64.9 Anemia, unspecified; K21.9 Gastro-esophageal reflux disease without esophagitis; D69.6 Thrombocytopenia, unspecified; J34.89 Other specified disorders of nose and nasal sinuses; Z87.891 Personal history of nicotine dependence; Z99.81 Dependence on supplemental oxygen; R53.83 Other fatigue; R05 Cough; R06.02 Shortness of breath; E27.8 Other specified disorders of adrenal gland; M54.5 Low back pain; D70.9 Neutropenia, unspecified
CPT/HCPCS: 36415; 36591; 36593; 71260; 82533; 85025; 85027; 96372; 96374; 96375; 96413; G0463; J1100; J1442; J1642; J2505; J2997; J7050; J9171; 82040; 82247; 82310; 82374; 82435; 82565; 82947; 84075; 84132; 84155; 84295; 84450; 84460; 84520; 99212; Q9967

== ENCOUNTER 2019-06-14 19:13 | Emergency (ER) | payer MEDICARE ==
[~2019-06-14 19:13] MED LIST changes: -ALTEPLASE RECOMB 2 MG VIAL IVP PRN; -DEXAMETHASONE SOD 20MG/5 ML VL IVP PRN; -DEXTROSE 5%(*) 100 ML BAG 100 ML IVPB PRN; -DOCETAXEL IVPB ONE; -FILGRASTIM 480 MCG/0.8 ML SYRINGE SC ONE; -NS 0.9% IVPB ONE; -NS(*) 0.9% 100 ML BAG 100 ML IVPB PRN; -PEGFILGRASTIM 6 MG/0.6 ML SYR SUBQ ONE; -WATER FOR INJ,STERILE 20 ML IVP PRN
--- NOTE | 2019-06-14 20:09 | ER Report ---
History and Physical Time Seen By MD: 20:05 HPI/ROS CHIEF COMPLAINT: Knee pain HISTORY OF PRESENT ILLNESS: This is a 73-year-old female who presents the emergency department with bilateral knee pain. Patient is actively being treated for metastatic non-small cell lung cancer, she currently on a "chemotherapy holiday for 6 weeks", approximately 2-3 weeks ago she had a mechanical fall falling on her right knee no evaluation at that time, then one week ago she was walking, tripped and fell hitting her left knee, then last night she developed some left knee pain, today she has some bruising and swelling to the left knee, she also states that she's had increased pain of her right knee. She denies any other complaints, she denies hitting her head, no chest pain or shortness of breath, no fevers, no chills no other complaints at this time. REVIEW OF SYSTEMS: Respiratory: No cough, no dyspnea. Cardiovascular: No chest pain, no palpitations. Gastrointestinal: No vomiting, no abdominal pain. Musculoskeletal: As above. Allergies: Coded Allergies: Penicillins (Verified Allergy, Intermediate, 02/04/19) Home Meds Active Scripts Docusate Sodium (COLACE) 100 Mg Capsule, 1 CAP PO BID PRN for CONSTIPATION, #30 CAP 0 Refills TAKE WITH A FULL GLASS OF WATER Prov:POONAM HIGGINS MD 05/10/19 Reported Medications Dexamethasone (DEXAMETHASONE) 2 Mg Tablet, 2 MG PO DAILY 05/10/19 Hydrochlorothiazide (HYDROCHLOROTHIAZIDE) 12.5 Mg Tablet, 12.5 MG PO DAILY 05/09/19 Citalopram Hydrobromide (CELEXA) 40 Mg Tablet, 40 MG PO QDAY, #5 TAB 09/08/15 Past Medical/Surgical History The patient has a past medical surgical surgical history of hypertension, pneumonia, COPD, GERD, stress incontinence, arthritis, macular degeneration, depression, chemotherapy, places cystectomy, hysterectomy, back surgery, Reviewed Nurses Notes: Yes Hx Smoking: Yes (1 PPD FOR 47 YRS) Hx Substance Use Disorder: No Hx Alcohol Use: No Constitutional Vital Sign - Last 24 Hours 06/14/19 20:12 Temp 98.4 Pulse 82 Resp 16 B/P (MAP) 116/102 Pulse Ox 89 O2 Delivery Nasal Cannula Physical Exam General Appearance: The patient is alert, has no immediate need for airway protection and no current signs of toxicity. Eyes: Pupils equal and round no injection. Respiratory: Chest is non tender, lungs are clear to auscultation. Cardiac: regular rate and rhythm. Gastrointestinal: Abdomen is soft and non tender, no masses, bowel sounds normal. Musculoskeletal: Neck: Neck is supple and non tender. Extremities/Skin: mild tenderness to the left anterior knee, small amount of bruising, small amount of swelling, no erythema, no crepitus or obvious deformities. Very mild tenderness to the right anterior knee, no deformities or crepitus with palpation. DIFFERENTIAL DIAGNOSIS: After history and physical exam differential diagnosis was considered for contusion, fracture, subluxation, arthritis. Medical Decision Making EKG/Imaging Imaging FACILITY: [facility] [place] PATIENT NAME: Margarita Smith : 1945 MR: [id number] V: [id number] EXAM DATE: ORDERING PHYSICIAN: NISHANT LEE TECHNOLOGIST: Location: [facility] [place] Patient: Margarita Smith : 1945 Visit/Account:[id number] Date of Sevice: 06/14/2019 Bilateral knees: Indication: Injury. Technique: 4 views of each knee were obtained. Comparison: None available. Findings: There is no evidence of fracture, dislocation, or other acute deformity. There are mild degenerative changes at the patellofemoral articulations. There are some chronic degenerative changes at the right tibial tubercle. There is normal mineralization of the skeletal structures. The periarticular soft tissues appear unremarkable. IMPRESSION: No acute deformity in either knee. Report Dictated By: Chapin Vázquez MD at 06/14/2019 9:31 PM Report E-Signed By: Chapin Vázquez MD at 06/14/2019 9:34 PM WSN:[id number] ED Course/Re-evaluation ED Course The patient was admitted to room. A history and physical obtained. Differential diagnoses were considered. An x-ray of bilateral knees was obtained, showing no acute deformity of either knee. Patient was given 1 hydrocodone which did provide significant relief of her symptoms. I reviewed the results with the patient, did tell her this is likely contusion, however I did recommend following up with [facility] for reevaluation in one week if no improvement of her symptoms. She was also given an Karlos wrap to the left knee as this one was the most uncomfortable. She'll return to the ER for any concerns or worsening symptoms, she was agreeable with the plan care and discharged home. Decision to Disposition Date: Jun 14, 2019 Decision to Disposition Time: 21:44 Depart Departure Latest Vital Signs Vital Signs Date Time Temp Pulse Resp B/P (MAP) Pulse Ox O2 Delivery O2 Flow Rate FiO2 06/14/19 20:12 98.4 82 16 116/102 89 Nasal Cannula Impression: Primary Impression: Contusion of knee, left Additional Impression: Contusion of knee, right Condition: Improved Disposition: HOME OR SELF-CARE Patient Instructions: Contusion in Adults (ED), Knee Pain (ED) Additional Instructions: No evidence of fracture or any other concerning findings on the x-rays of her knees. Use the Karlos wrap as needed for comfort. Continue taking your current medications as prescribed. You can try Aspercreme with lidocaine to the knees, this may provide some relief as well. Follow-up with [facility] within 1 week for reevaluation if no improvement of her pain. Follow-up with your primary care provider as scheduled. Return to the ER for any concerns or worsening symptoms per Problem Qualifiers Primary Impression: Contusion of knee, left Encounter type: initial encounter Qualified Codes: S80.02XA - Contusion of left knee, initial encounter Additional Impression: Contusion of knee, right Encounter type: initial encounter Qualified Codes: S80.01XA - Contusion of right knee, initial encounter NISHANT LEE [employer]ACHINE-BC Jun 14, 2019 20:09
[2019-06-14] MEDS ORDERED: APAP/HYDROCODONE 325/5 TAB PO ONE (20:20)
[2019-06-14 21:30] VITALS: BP 118/71
--- NOTE | 2019-06-14 21:42 | RADIOLOGY IMAGING REPORT ---
FACILITY: [facility] - [place] PATIENT NAME: Margarita Smith : 1945 MR: [id number] V: [id number] EXAM DATE: ORDERING PHYSICIAN: NISHANT LEE TECHNOLOGIST: Location: [facility] Patient: Margarita Smith : 1945 Visit/Account:[id number] Date of Sevice: 06/14/2019 Bilateral knees: Indication: Injury. Technique: 4 views of each knee were obtained. Comparison: None available. Findings: There is no evidence of fracture, dislocation, or other acute deformity. There are mild deg enerative changes at the patellofemoral articulations. There are some chronic degenerative changes at the right tibial tubercle. There is normal mineralization of the skeletal structures. The periarticu lar soft tissues appear unremarkable. IMPRESSION: No acute deformity in either knee. Report Dictated By: Chapin Vázquez MD at 06/14/2019 9:31 PM Report E-Signed By: Chapin Vázquez MD at 06/14/2019 9:34 PM WSN:[id number]
== END 2019-06-14 22:07 | disposition home or self-care (01) ==
LOC: ER 19:57
DX: S80.02XA Contusion of left knee, initial encounter (principal); S80.01XA Contusion of right knee, initial encounter
CPT/HCPCS: 73562; 99283; A9270